=== PATIENT | male | born 1960 | race Caucasian/White ===

== ENCOUNTER 2017-06-05 11:17 | Day surgery (SDC) | payer MEDICARE, MEDICAID ==
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
[~2017-06-05 11:17] MED LIST: Buffered Lidocaine 0.9% SYRIN* 5 ML/SYR SYRINGE INTRADERM ONE; Buffered Lidocaine 0.9% SYRIN* 5 ML/SYR SYRINGE ONE; Famotidine IV* 10 MG/ML 2 ML (20 mg) IV ONE; Famotidine IV* 10 MG/ML 2 ML (20 mg) ONE; Metoclopramide TAB* 10 MG ONE; Metoclopramide TAB* 10 MG PO ONE; ceFAZolin 2 GM PREMIX (*) 2 GM/50 ML BAG IVPB ONE
[2017-06-05] MEDS ORDERED: Lidocaine 2% PF * 5 ML VIAL ONE ×2 (12:51→12:52)
[2017-06-05] MEDS ORDERED: Dexamethasone IV* 4 MG/ML 1 ML (4 MG) ONE (12:51)
[2017-06-05] MEDS ORDERED: Propofol* 10 MG/ML 20 ML BTL IV PUSH ONE (12:51)
[2017-06-05] MEDS ORDERED: Ketorolac INJ* 30 MG/ML 1 ML VIAL ONE (12:51)
[2017-06-05] MEDS ORDERED: Midazolam* 1 MG/ML 10 ML VIAL (10 MG) ONE (12:51)
[2017-06-05] MEDS ORDERED: fentaNYL* 50 MCG/ML 2 ML VIAL (100 MCG VIAL) ONE (12:51)
[2017-06-05] MEDS ORDERED: Ondansetron INJ* 2 MG/ML VIAL ONE (12:51)
[2017-06-05] MEDS ORDERED: Cisatracurium* 2 MG/ML MDV 5 ML ONE (12:51)
[2017-06-05] MEDS ORDERED: KETAMINE HCL* 50 MG/ML 10 ML VIAL ONE (12:51)
[2017-06-05] MEDS ORDERED: Bupivacaine 0.25% SDV* 30 ML ONE (13:34)
[2017-06-05] MEDS ORDERED: ROPIVACAINE 5 MG/ML 30 ML BTL (0.5%) ONE (13:42)
[2017-06-05] MEDS ORDERED: VASOPRESSIN 20 UNITS/ML 1 ML VIAL ONE (15:52)
[2017-06-05] MEDS ORDERED: Phenylephrine IV* 40 MCG/ML 10 ML SYRINGE ONE (15:52)
[2017-06-05] MEDS ORDERED: EPHEDrine (Pressors)* 50 MG/ML VIAL ONE (15:52)
[2017-06-05] MEDS ORDERED: fentaNYL* 50 MCG/ML 2 ML VIAL (100 MCG VIAL) IV PRN (16:14)
[2017-06-05] MEDS ORDERED: Ondansetron INJ* 2 MG/ML VIAL IV PRN (16:14)
[2017-06-05] MEDS ORDERED: oxyCODONE/Acetamin 5/325 MG* TAB PO PRN (16:14)
[2017-06-05 18:42] VITALS: BP 118/69
--- NOTE | 2017-06-06 10:47 | OP ---
CC: PCP; Dr. Ferrer * DATE OF OPERATION: 06/05/17 - [facility] DATE OF : 62 SURGEON: Fabio Pena MD FINANCIAL REPRESENTATIVE: ALAYNA Holden ANESTHESIOLOGIST: Dr. Yoo. ANESTHESIA: General interscalene block. PREOPERATIVE DIAGNOSES: 1. Right shoulder osteoarthritis. 2. Complete tear of the rotator cuff and instability. POST-OP DIAGNOSES: Right shoulder moderate osteoarthritis of the glenoid, massive tear of the supraspinatus, anterior half of the infraspinatus, bicipital tendinitis and tendinosis. OPERATIVE PROCEDURE: Right shoulder arthroscopy with: 1. Extensive glenohumeral debridement including chondroplasty. 2. Removal of loose body x1. 3. Arthroscopic biceps tenodesis. 4. Subacromial decompression. 5. Rotator cuff repair in double row fashion. INDICATIONS: Markie Mc is a 57-year-old male who has had shoulder and knee injuries previously. He said he has had several dislocations of the shoulder. He states that he has also had bilateral knee pain. We were working on left and right shoulder, which demonstrated some osteoarthritis with a large tear of the rotator cuff, specifically supraspinatus, in part the infraspinatus. He had failed conservative management. We talked about replacement and he is too young for replacement for this type of surgery. Risks and benefits of surgery versus nonoperative treatment were discussed in length and included but are not limited to bleeding, infection, damage to nerves, vessels, surrounding structures, wound nonhealing, persistent pain, need for further surgery, scarring, stiffness incomplete relief symptoms, risk of anesthesia. He has elected to proceed. COMPLICATIONS: None. ESTIMATED BLOOD LOSS: Minimal. IMPLANTS USE: One 2.8 mm Q-FIX, one MULTIFIX, two 4.75 HEALICOILS. DESCRIPTION OF PROCEDURE: The patient was greeted in the preoperative area by the attending surgeon. Correct extremity was marked and consent was confirmed. The patient underwent interscalene nerve block by the anesthesiologist in the preoperative area. He was then brought back to the operating suite where he was placed on the supine position on the operating room table and then underwent general anesthesia and endotracheal intubation, after which he was placed in the left lateral decubitus position with an axillary roll and all bony prominences padded. He was secured with the pegboard. His right arm was draped unsterile with 10 pounds of traction. The right shoulder was prepped and draped in the usual sterile fashion beginning with chlorhexidine soap, scrub and alcohol wipe and final prep of ChloraPrep. After appropriate surgical pause indicating side, site, procedure, administration of antibiotics, the posterolateral portal was made sharply with 11 blade. Scope was introduced to the joint. Joint was examined. There were grade 2 and 3 changes of the glenohumeral joint with unstable flaps. The anterior posterior and superior labrum were torn. Biceps had evidence of tearing at the insertion as well as in the body of the tendon. The supraspinatus had a full thickness tear extending into the anterior portion of the infraspinatus. The subscap was intact. The inferior recess was intact, but had abundant synovitis. The anterior portal was made in an outside-in- fashion with the shaver to debride back the chondral flaps of the humerus and the glenoid. The biceps was then tagged with an 0-PDS suture and tenotomized for later tenodesis. Once the debridement was complete, attention was directed to the subacromial space. The scope was positioned in the subacromial space, there was abundant bursa that was present that was thick and formed a layer over the rotator cuff. This was debrided back using the shaver and the electrocautery device. This demonstrated the large U-shaped tear with supra and into the infraspinatus tendon. The undersurface of the acromion was identified and skeletonized using electrocautery device. This was having a regular anterolateral spur. The 4.0 oval iqra was then used to do an acromioplasty. All excess bone and debris was removed carefully filled back. Attention was then directed to the biceps. The bicipital grove was identified and the biceps exposed with traction on the previously placed stitch. A Q-FIX anchor was placed through separate stab incision with excellent purchase. The sutures were then passed through the tendon in a looped manner and then both tied down arthroscopically, this helped to secure the biceps. The excess stump was debrided back. Attention was then directed to the supraspinatus and infraspinatus tendon. The electrocautery device was used to skeletonize the greater tuberosity. The rasp was used to rasp and the 4.0 oval iqra were then used to gently decorticate the greater tuberosity. The excess bone and debris was removed. At this point, two 4.75 HEALICOIL anchors were placed in the medial row and anteriorly and posteriorly. The awl was then used to do a small microfracture to allow fixation and healing to the greater tuberosity. The sutures were then passed through tendons in a horizontal mattress configuration. Once they were passed, they were then tied down using arthroscopic knot tying technique. All the sutures were tied down. The sutures were then passed through MULTIFIX anchor and then placed in lateral row for double-row fixation. Final images were obtained. The shoulder was taken through gentle range of motion and found to have appropriate repair as well as compression of the cuff to the foot print. Final images were obtained. The wounds were copiously irrigated with sterile saline. The wounds were closed with 3-0 nylon in interrupted fashion. Sterile dressings were placed as well as Cryo/Cuff and UltraSling. He was awoken from anesthesia and transferred to the PACU in stable condition. POSTOPERATIVE PLAN: He will be nonweightbearing. He will be in a sling for 6 weeks. He will be discharged on pain medications at the advice of Dr. Ferrer, who is his pain management physician. We went by his guidelines. DVT prophylaxis was considered, but deferred due to no previous personal or family history. I will see the patient back in 10 to 14 days. [id number]/[facility] #: [id number] CAROL
== END 2017-06-05 18:44 | disposition home or self-care (01) ==
LOC: OR 11:17
PROVIDERS: ATTEND Orthopaedic Surgery
DX: M75.121 Complete rotator cuff tear or rupture of right shoulder, not specified as traumatic (principal); M25.311 Other instability, right shoulder; M19.011 Primary osteoarthritis, right shoulder; J45.909 Unspecified asthma, uncomplicated; Z87.891 Personal history of nicotine dependence; I10 Essential (primary) hypertension; F32.9 Major depressive disorder, single episode, unspecified; M19.90 Unspecified osteoarthritis, unspecified site
CPT/HCPCS: A9270-GY; C1713; C1776; J0690; J1100; J1885; J2250; J2405; J2704; J2795; J3010

== ENCOUNTER 2017-10-14 12:47 | Emergency (ER) | payer MEDICARE, MEDICAID ==
--- OUTSIDE RECORDS SUMMARY | 2017-10-14 13:29 | XMS REPORT ---
:1960 External Reference #:[id number] Author Organization [facility] Address [address] [address] Phone [phone] Care Team Providers Name Role Phone Lucas Arenas MD Care Team Information Search Planner Unavailable Lucas Arenas MD Primary Care Physician Unavailable Payers Type Date Identification Numbers Payment Provider Subscriber Medicare Primary Effective: Policy Number: Medicare Christoph Mc 2014 [id number] PayID: [id number] [address] [place] [address] Commercial Expires: 2015 Policy Number: [employer] Christoph Ventura [id number] Medicaid Alexandro PayID: [id number] [address] [address] [place] [address] Medigap Part B Policy Number: [id number] Medicaid Christoph Mc PayID: [id number] [address] [place] [address] Problems Date Description Provider Status Onset: 04/30/2017 Localized, primary osteoarthritis Fabio Pena MD Active of the shoulder region Onset: 04/30/2017 Strain of musc/tend the rotator Fabio Pena MD Active cuff of right shoulder, subs Onset: 05/16/2017 Localized, primary osteoarthritis Fabio Pena MD Active Onset: 06/19/2017 Body mass index 30+ - obesity 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, RN, 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 Insomnia 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 RN, 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 Sleep apnea 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, RN, 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: 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/2017 Degeneration of lumbosacral Emanuel Shepherd MD Active intervertebral disc Onset: 09/11/2017 Low back pain Emanuel Shepherd MD Active Onset: 09/11/2017 Lumbosacral 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 Onset: 08/29/2017 Lumbar radiculopathy Fabio Pena MD Active Onset: 08/29/2017 Localized, primary osteoarthritis Fabio Pena MD Active of the pelvic region and thigh Family History Date Family Member(s) Problem(s) Comments General Heart Disease General Diabetes General Cancer Father Diabetes Father due to Unknown Causes () Mother due to Cancer () Siblings 2 older brother, younger sister both healthy Social History Type Date Description Comments Marital Status Lives With Alone 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 Cigarette Use Former Cigarette Smoker 1 for many years quit more Pack Daily than 20 years ago (report from 2018) ETOH Use Occasionally consumes alcohol Recreational Drug Use Denies Drug Use Smoking Patient is a former smoker Daily Caffeine Occasional coffee Daily Caffeine Consumes on average 1 cup of hot tea per day Exercise Type/Frequency Exercises sporadically Recovering from shoulder surgery 06/19/17 Allergies, Adverse Reactions, Alerts Date Description Reaction Status Severity Comments 03/24/2015 NKDA active Medications Medication Date Status Form Strength Qnty SIG Indications Ordering Provider Albuterol Sulfate 03/24 Active Nebulizer 75ml 1 vial via nebulizer Chao, 4 times M.D. daily as needed Amlodipine Active Tablets 5mg 1 by mouth Unknown Besylate every day Celecoxib Active Capsules 200mg once daily Unknown Cyclobenzaprine Active Tablets 10mg one by Unknown HCL /0000 mouth three times a day as needed spasm Cymbalta Active Caps DR 30mg 1 by mouth Unknown /0000 Part every day Dulera Active Aerosol 100-5mcg/ 2 puff Unknown / Act twice a day Morphine Sulfate Active Caps ER 30mg 1 by mouth Unknown ER /0000 24HR every 6 hours Nuvigil Active Tablets 250mg 1 by mouth Unknown / every day Oxycodone-Acetami Active Tablets 10-325mg take 1 Unknown nophen /0000 tablet by mouth every 4 to 6 hours as needed for pain Proair HFA Active Aerosol 108(90Bas 2 puffs by Unknown /0000 e) mouth mcg/Act every 4 hours as needed Lisinopril Active Tablets 10mg 1 by mouth Unknown /0000 every day Tamsulosin HCL Active Capsules 0.4mg 1 by mouth Unknown /0000 every day Oxycodone HCL 06/04 Hx Tablets 10mg 40tab take 1 tab ne s every 8 MD Jean - hours as 06/19 pain Oxycodone HCL 06/03 Hx Tablets 5mg 56tab 1-2 tabs ne s by mouth MD Jean - every 4-6 06/03 hours as needed Keflex 06/03 Hx Capsules 500mg 12cap take 1 tab s by mouth MD Jean - four times 06/19 a day x days. Do not take before surgery [facility] 03/22 Hx Tablets 5-325mg 30tab 1-2 by S63.635A s mouth q4-6 Chao, - hour as M.D. 06/02 needed pain [facility] 03/24 Hx Tablets 5-325mg 30tab 1-2 by [id number] Tamica /2015 s mouth q4-6 Chao, - hour as M.D. 02/16 needed pain Mobic 11/07 Hx Tablets 15mg 30tab Take One s Tablet By Rufina, - Mouth Once M.D. 06/24 Daily Food as Needed Flexeril Hx Tablets 10mg 1 by mouth Unknown /0000 three - times a 11/18 day needed Duloxetine HCL Hx Caps DR 30mg 1 by mouth Unknown /0000 Part every day - 11/15 Medications Administered in Office Medication Date Status Form Strength Qnty SIG Indications Ordering Provider Triamcinolone 08/13/ Administered Injection Zaneb (Kenalog) 2017 MD Jean Triamcinolone 08/13/ Administered Injection Zaneb (Kenalog) 2017 MD Jean Triamcinolone 05/16/ Administered Injection Maryjo (Kenalog) 2016 ERIKA Dodd Triamcinolone 05/16/ Administered Injection Maryjo (Kenalog) 2016 ERIKA Dodd Triamcinolone 04/30/ Administered Injection Zaneb (Kenalog) 2016 MD Jean Triamcinolone 04/30/ Administered Injection Zaneb (Kenalog) 2016 MD Jean Depomedrol 40MG 03/21/ Administered Injection Tamica 2016 Clare Chao Depomedrol 40MG 03/21/ Administered Injection Tamica 2016 Clare Chao Depomedrol 40MG 11/28/ Administered Injection Tamica 2016 Clare Chao Depomedrol 40MG 11/28/ Administered Injection Tamica 2016 Clare Chao Depomedrol 40MG 07/30/ Administered Injection Tamica 2016 Clare Chao Depomedrol 40MG 07/30/ Administered Injection Tamica 2016 Clare Chao Depomedrol 40MG 04/12/ Administered Injection Norma 2015 SAUNDRA Ramos Depomedrol 40MG 12/14/ Administered Injection Tamica 2015 Clare Chao Depomedrol 40MG 08/21/ Administered Injection Norma 2015 SAUNDRA Ramos Depomedrol 40MG 06/30/ Administered Injection Tamica 2015 Clare Chao Hyalagan Or 02/26/ Administered Injection Mitul Supartz, For 2012 Rufina, Intra-Articular Clare Inject Per Dose Hyalagan Or 02/20/ Administered Injection Congregation Supartz, For 2012 H. Intra-Articular Mckeithen, Inject Per Dose R.P.A.-C Synvisc Or 02/13/ Administered Injection Congregation Synvisc-One 2012 H. Injection 1 MG Mckeithen, R.P.A.-C Hyalagan Or 02/13/ Administered Injection Congregation Supartz, For 2012 H. Intra-Articular Mckeithen, Inject Per Dose R.P.A.-C Hyalagan Or 02/05/ Administered Injection Congregation Supartz, For 2012 H. Intra-Articular Mckeithen, Inject Per Dose R.P.A.-C Hyalagan Or 01/29/ Administered Injection Congregation Supartz, For 2012 H. Intra-Articular Mckeithen, Inject Per Dose R.P.A.-C Hyalagan Or 01/22/ Administered Injection Congregation Supartz, For 2012 H. Intra-Articular Mckeithen, Inject Per Dose R.P.A.-C Hyalagan Or 01/15/ Administered Injection Mitul Carreon, For 2012 Rufina, Intra-Articular M.D. Inject Per Dose Hyalagan Or 01/08/ Administered Injection Mitul Carreon, For 2012 Rufina, Intra-Articular M.D. Inject Per Dose Hyalagan Or 01/01/ Administered Injection Mitul Carreon, For 2012 Rufina, Intra-Articular M.D. Inject Per Dose Vital Signs Date Vital Result Comment 10/09/2017 Height 71 inches 5'11" Weight 245.00 lb BP Systolic Sitting 140 mmHg BP Diastolic Sitting 90 mmHg Pain Level 8 BMI (Body Mass Index) 34.2 kg/m2 10/08/2017 Height 71 inches 5'11" Heart Rate 73 /min BP Systolic 126 mmHg BP Diastolic 78 mmHg Respiratory Rate 16 /min Body Temperature 98.1 F Pain Level 7 09/11/2017 Height 71 inches 5'11" Weight 245.00 lb Heart Rate 76 /min BP Systolic Sitting 140 mmHg BP Diastolic Sitting 92 mmHg Pain Level 7 BMI (Body Mass Index) 34.2 kg/m2 08/29/2017 Height 71 inches 5'11" Weight 245.00 lb per pt Heart Rate 66 /min reg BP Systolic Sitting 124 mmHg Lue BP Diastolic Sitting 84 mmHg Lue Respiratory Rate 16 /min Pain Level 7 left hip BMI (Body Mass Index) 34.2 kg/m2 08/13/2017 Height 71 inches 5'11" Heart Rate 80 /min BP Systolic 138 mmHg BP Diastolic 88 mmHg Respiratory Rate 16 /min Body Temperature 97.6 F Pain Level 7 07/30/2017 Height 71 inches 5'11" Weight 253.00 lb BP Systolic 130 mmHg BP Diastolic 80 mmHg Respiratory Rate 18 /min Body Temperature 98.2 F Pain Level 4 BMI (Body Mass Index) 35.3 kg/m2 06/19/2017 Height 71 inches 5'11" Weight 253.12 lb Heart Rate 98 /min BP Systolic Sitting 126 mmHg Rue large cuff BP Diastolic Sitting 74 mmHg Rue large cuff Respiratory Rate 16 /min O2 % BldC Oximetry 97 % On Ra BMI (Body Mass Index) 35.3 kg/m2 05/16/2017 Height 71 inches 5'11" Weight 270.00 lb BP Systolic 114 mmHg BP Diastolic 74 mmHg Respiratory Rate 20 /min Pain Level 3 BMI (Body Mass Index) 37.7 kg/m2 04/30/2017 Height 71 inches 5'11" Weight 270.00 lb Heart Rate 74 /min BP Systolic 127 mmHg BP Diastolic 74 mmHg Body Temperature 96.0 F BMI (Body Mass Index) 37.7 kg/m2 03/21/2017 Height 70.25 inches 5'10.25" Weight 270.00 lb BP Systolic 124 mmHg BP Diastolic 78 mmHg Respiratory Rate 20 /min Pain Level 8 BMI (Body Mass Index) 38.5 kg/m2 11/28/2016 Height 70.25 inches 5'10.25" Weight 270.00 lb BP Systolic 150 mmHg BP Diastolic 120 mmHg Body Temperature 96.7 F BMI (Body Mass Index) 38.5 kg/m2 07/30/2016 Height 70.25 inches 5'10.25" Weight 270.00 lb Heart Rate 78 /min BP Systolic 151 mmHg BP Diastolic 97 mmHg Respiratory Rate 14 /min BMI (Body Mass Index) 38.5 kg/m2 04/12/2016 Height 70.25 inches 5'10.25" Weight 270.00 lb Pain Level 6 BMI (Body Mass Index) 38.5 kg/m2 03/08/2016 Height 70.25 inches 5'10.25" Weight 270.00 lb BP Systolic 140 mmHg BP Diastolic 80 mmHg Pain Level 7 BMI (Body Mass Index) 38.5 kg/m2 12/15/2015 Height 70.25 inches 5'10.25" Weight 285.00 lb Pain Level 7 BMI (Body Mass Index) 40.6 kg/m2 08/22/2015 Height 70.25 inches 5'10.25" Weight 285.00 lb Pain Level 0 BMI (Body Mass Index) 40.6 kg/m2 07/25/2015 Height 70.25 inches 5'10.25" Weight 285.00 lb Body Temperature 97.8 F Pain Level 0 BMI (Body Mass Index) 40.6 kg/m2 06/30/2015 Height 70.25 inches 5'10.25" Weight 285.00 lb Pain Level 7 BMI (Body Mass Index) 40.6 kg/m2 05/19/2015 Height 70.25 inches 5'10.25" Weight 285.00 lb Pain Level 5 BMI (Body Mass Index) 40.6 kg/m2 04/21/2015 Height 70.25 inches 5'10.25" Weight 285.00 lb Pain Level 0 in general BMI (Body Mass Index) 40.6 kg/m2 03/24/2015 Height 70.25 inches 5'10.25" Weight 285.00 lb Heart Rate 99 /min BP Systolic Sitting 138 mmHg BP Diastolic Sitting 92 mmHg Pain Level 6 BMI (Body Mass Index) 40.6 kg/m2 Results Test Date Test Result H/L Range Note Laboratory test 07/15/2015 Surgical Pathology SEE RESULT BELOW 1 finding 1 SEE RESULT BELOW Name: CHRISTOPH MC : [address]: Tamica Chao MD Acct: [id number] Unit: [id number] AGE: 55 Location: [facility] Re07/15/15 SEX: M Status: REG [facility] [place] SPEC: [id number] SMITHA: 07/15/15-1210 [facility] DR: Tamica Chao MD REQ: [id number] RECD: 07/15/15 STATUS: SOUT _ ORDERED: Decal, LEVEL III FINAL DIAGNOSIS Bone, left ring finger, PIP joint arthroplasty: -- Severe degenerative osteoarthritic changes with marked reactive bony remodeling and reactive marrow changes. PRE-OPERATIVE DIAGNOSIS Left proximal interphalangeal joint arthritis GROSS DESCRIPTION The specimen is received in formalin labeled, PIP Joint Left Ring Finger, and consists of a 1.9 x 1.0 x 0.5 cm aggregate of hansen white irregular bone fragments. Retail Associate sections, one cassette following decalcification. MICROSCOPIC DESCRIPTION Signed (signature on file) Carlito Ayala MD 1608 END OF REPORT * ML=Testing performed at Main Lab DEPARTMENT OF PATHOLOGY, [address] [place] [address] Carlito Ayala M.D. Director [facility] # [id number] Procedures Date CPT Code Description Status 08/13/2017 Inject/Drain Joint/Bursa Major Completed 07/10/2017 18942 Polysomnography Sleep Staging 4+ Parameters W/Cpap Completed 06/27/2017 39002 Polysomnography Sleep Staging 4+ Parameters Completed 06/05/2017 76492 Arthroscopy Biceps Tenodesis Completed 06/05/2017 19004 Arthroscopy Biceps Tenodesis Completed 06/05/2017 48781 Arthroscopy Shoulder,W/Rotator Cuff Repair Completed 06/05/2017 23732 Arthroscopy Shoulder,W/Rotator Cuff Repair Completed 06/05/2017 38966 Arthroscopy,Shoulder Decompression Of Subacromial Space Completed W/Acromio 06/05/2017 05839 Arthroscopy,Shoulder Decompression Of Subacromial Space Completed W/Acromio 05/16/201727075 Inject/Drain Joint/Bursa Major Completed 04/30/2017 Inject/Drain Joint/Bursa Major Completed 03/21/2017 Inject/Drain Joint/Bursa Small Completed 11/28/2016 Inject/Drain Joint/Bursa Small Completed 11/28/2016 72997 Inject Tendon Sheath Or Ligament Aponeurosis Eg Plantar Completed Fascia 07/30/2016 Inject/Drain Joint/Bursa Small Completed 04/12/2016 23896 Inject Tendon Sheath Or Ligament Aponeurosis Eg Plantar Completed Fascia 03/23/2016 53354 Trigger Finger Release Incision / Tendon Sheath Completed Incision 03/23/2016 12914 Trigger Finger Release Incision / Tendon Sheath Completed Incision 12/15/201528111 Inject Tendon Sheath Or Ligament Aponeurosis Eg Plantar Completed Fascia 08/22/201515276 Inject Tendon Sheath Or Ligament Aponeurosis Eg Plantar Completed Fascia 08/22/201586663 Inject Tendon Sheath Or Ligament Aponeurosis Eg Plantar Completed Fascia 07/15/2015 72681 Arthroplasty Interphalangeal Joint W/Prosthetic Implant Completed 07/15/2015 04434 Arthroplasty Interphalangeal Joint W/Prosthetic Implant Completed 06/30/2015 46543 Inject Tendon Sheath Or Ligament Aponeurosis Eg Plantar Completed Fascia 04/08/2015 46559 Repair Of Collateral Ligament Metacarpophalangeal Or Completed Interphl JT 04/08/2015 84802 Repair Of Collateral Ligament Metacarpophalangeal Or Completed Interphl JT 04/08/2015 82908 Repair Of Collateral Ligament Metacarpophalangeal Or Completed Interphl JT 12/24/2013 47608 EKG, Interpretation Only Completed 02/26/2013 Inject/Drain Joint/Bursa Major Completed 02/20/2013 Inject/Drain Joint/Bursa Major Completed 02/13/2013 Inject/Drain Joint/Bursa Major Completed 02/05/2013 Inject/Drain Joint/Bursa Major Completed 01/29/2013 Inject/Drain Joint/Bursa Major Completed 01/22/201374390 Inject/Drain Joint/Bursa Major Completed 01/15/2013 Inject/Drain Joint/Bursa Major Completed 01/08/2013 Inject/Drain Joint/Bursa Major Completed 01/01/2013 Inject/Drain Joint/Bursa Major Completed 11/07/2012 24715 Xray Knee 3 Views Completed 11/07/2012 35408 Rad Exam; Knee, Ap&L Completed Encounters Type Date Location Provider CPT E/M Dx Office Visit 10/09/2017 Neurosurgery Services Emanuel 35556 M47.26 10:00a Of Thelma Shepherd MD M54.5 M51.37 Office Visit 09/11/2017 10:30a Neurosurgery Services Vassilios 82158 M47.26 Of Thelma Shepherd MD M54.5 M51.37 Office Visit 08/29/2017 11:00a [place] [address] M16.12 Ir[place]a M54.16 Office Visit 06/19/2017 2:30p Pulmonology And Sleep Malinda Bradley, 41523 G47.00 Services Of Thelma HERNANDES RN, [facility] G47.10 G47.50 E66.9 Z68.35 Office Visit 05/16/2017 2:15p [facility] [address] M19.011 C.Fabricio M17.0 M75.121 M75.21 Office Visit 04/30/2017 1:30p [place] [address] M19.011 C.Fabricio S46.011D M17.0 Office Visit 04/12/2016 10:00a Orthopedic Services Norma Ramos 75498 M65.342 Of Irlanda MULLEN-C Office Visit 03/08/2016 10:00a Orthopedic Services Tamica Chao 95617 M65.332 Of Irlanda Sparks Office Visit 12/15/2015 2:00p Orthopedic Services Tamica Chao 39295 M65.332 Of Irlanda Sparks M19.042 Office Visit 08/22/2015 10:20a Orthopedic Services Norma Ramos 67272 M65.332 Of Irlanda MULLEN-C S63.635D Office Visit 06/30/2015 9:20a Orthopedic Services Tamica Chao 33580 S63.635D Of Irlanda Sparks M65.332 M19.042 Office Visit 03/24/2015 10:30a Orthopedic Services Tamica Chao 43177 S63.635A Of Irlanda Sparks M19.042 Office Visit 01/06/2013 1:00p Neurosurgery Services Jacob Loyola, 28025 721.3 Of Thelma Sparks Office Visit 11/07/2012 10:00a Orthopedic Services Of Mitul Almaraz 48206 715.16 Irlanda Sparks Plan of Care Future Appointment(s):10/16/2017 10:45 am - Diane Ann MD at [facility]10/09/2017 - Emanuel Shepherd, MDM47.26 Other spondylosis with radiculopathy, lumbar ejyfpdM16.5 Low back painM51.37 Other intervertebral disc degeneration, lumbosacral regionFollow up:Rv prn. Patient may be a candidate for L4-5 L5-S1 TLIF or ALIF with pedicle screws.
--- OUTSIDE RECORDS SUMMARY | 2017-10-14 13:29 | XMS REPORT ---
:1960 External Reference #:[id number] Author Organization [employer] Address [address] [address] Phone [phone] Care Team Providers Name Role Phone Lucas Arenas MD Care Team Information Lab Associate Unavailable Lucas Arenas MD Primary Care Physician Unavailable Payers Type Date Identification Numbers Payment Provider Subscriber Medicare Primary Effective: Policy Number: Medicare Markie Mc 2014 [id number] PayID: [id number] [address] [place] [address] Commercial Expires: 2015 Policy Number: [employer] Markie Ventura [id number] Medicaid Alexandro PayID: [id number] [address] [address] [place] [address] Medigap Part B Policy Number: [id number] Medicaid Markie Mc PayID: [id number] [address] [place] [address] Problems Date Description Provider Status Onset: 04/30/2017 Localized, primary osteoarthritis Fabio Pena MD Active of the shoulder region Onset: 04/30/2017 Strain of musc/tend the rotator Fabio Pena MD Active cuff of right shoulder, subs Onset: 05/16/2017 Localized, primary osteoarthritis Fabio Pena MD Active Onset: 06/19/2017 Body mass index 30+ - obesity 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, RN, Active LOIN TRIMMER-BC Onset: 06/19/2017 Insomnia 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, RN, Active LOIN TRIMMER-BC Onset: 06/19/2017 Sleep apnea 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 RN, Active LOIN TRIMMER-BC Onset: 09/11/2017 Low back pain Emanuel Shepherd [...] Active Nebulizer 75ml 1 vial via nebulizer Zhanna 4 times M.D. daily as needed Amlodipine Active Tablets 5mg 1 by mouth Unknown Besylate every day Celecoxib Active Capsules 200mg once daily Unknown / Cyclobenzaprine Active Tablets 10mg one by Unknown HCL /0000 mouth three times a day as needed spasm Cymbalta Active Caps DR 30mg 1 by mouth Unknown /0000 Part every day Dulera Active Aerosol 100-5mcg/ 2 puff Unknown /0000 Act twice a day Morphine Sulfate Active Caps ER 30mg 1 by mouth Unknown ER /0000 24HR every 6 hours Nuvigil Active Tablets 250mg 1 by mouth Unknown /0000 every day Oxycodone-Acetami Active Tablets 10-325mg take 1 Unknown nophen /0000 tablet by mouth every 4 to 6 hours as needed for pain Proair HFA Active Aerosol 108(90Bas 2 puffs by Unknown /0000 e) mouth mcg/Act every 4 hours as needed Lisinopril 00/00 Active Tablets 10mg 1 by mouth Unknown /0000 every day Tamsulosin HCL Active Capsules 0.4mg 1 by mouth Unknown /0000 every day Oxycodone HCL 06/04 Hx Tablets 10mg 40tab take 1 tab Zaneb s every 8 MD Jean - hours as 06/19 pain Oxycodone HCL 06/03 Hx Tablets 5mg 56tab 1-2 tabs Zaneb s by mouth MD Jean - every 4-6 06/03 hours as needed Keflex 06/03 Hx Capsules 500mg 12cap take 1 tab Zaneb s by mouth MD Jean - four times 06/19 a day x days. Do not take before surgery Johnson 03/22 Hx Tablets 5-325mg 30tab 1-2 by S63.635A s mouth q4-6 Chao, - hour as M.D. 06/02 pain Johnson 03/24 Hx Tablets 5-325mg 30tab 1-2 by S63.635A Tamica /2015 s mouth q4-6 Chao, - hour as M.D. 02/16 needed pain Mobic 11/07 Hx Tablets 15mg 30tab Take One s Tablet By Rufina, - Mouth Once M.D. 06/24 Daily With Food as Needed Flexeril Hx Tablets 10mg [...] Chao Hyalagan Or 02/26/ Administered Injection Mitul Carreon, For 2012 Rufina, Intra-Articular Arsalan.D. Inject Per Dose Hyalagan Or 02/20/ Administered Injection Catholic Supartz, For 2012 H. Intra-Articular Mckeithen, Inject Per Dose R.P.A.-C Synvisc Or 02/13/ Administered Injection Catholic Synvisc-One 2012 H. Injection 1 MG Mckeithen, R.P.A.-C Hyalagan Or 02/13/ Administered Injection Catholic Supartz, For 2012 H. Intra-Articular Mckeithen, Inject Per Dose R.P.A.-C Hyalagan Or 02/05/ Administered Injection Catholic Supartz, For 2012 H. Intra-Articular Mckeithen, Inject Per Dose R.P.A.-C Hyalagan Or 01/29/ Administered Injection Catholic Supartz, For 2012 H. Intra-Articular Mckeithen, Inject Per Dose R.P.A.-C Hyalagan Or 01/22/ Administered Injection Catholic Supartz, For 2012 H. Intra-Articular Mckeithen, Inject Per Dose R.P.A.-C Hyalagan Or 01/15/ Administered Injection Mitul Carreon, For 2012 Rufina, Intra-Articular M.D. Inject Per Dose Hyalagan Or 01/08/ Administered Injection Mitul Carreon, For 2012 Rufina, Intra-Articular M.D. Inject Per Dose Hyalagan Or 01/01/ Administered Injection Mitul Carreon, For 2012 Rufina, Intra-Articular M.D. Inject Per Dose Vital Signs Date Vital Result Comment 10/08/2017 Height 71 inches 5'11" Heart Rate [...] 1 finding 1 SEE RESULT BELOW Name: MARKIE MC : [address]: Tamica Chao MD Acct: [id number] Unit: [id number] AGE: 55 Location: [facility] Re07/15/15 SEX: M Status: [facility] SPEC: [id number] SMITHA: 07/15/15-[address]: Tamica Chao MD REQ: [id number] RECD: 07/15/15716 STATUS: SOUT _ ORDERED: Decal, LEVEL III [...] aggregate of hansen white irregular bone fragments. Feather Separator sections, one cassette following decalcification. MICROSCOPIC DESCRIPTION Signed (signature on file) Carlito Ayala MD 1608 END OF REPORT * ML=Testing performed at Main Lab DEPARTMENT OF PATHOLOGY, [address] [place] [address] Carlito Ayala M.D. Director [facility] # [id number] Procedures Date CPT Code Description Status 08/13/201781113 Inject/Drain Joint/Bursa Major Completed 07/10/2017 58255 Polysomnography Sleep Staging 4+ Parameters W/Cpap Completed 06/27/2017 64833 Polysomnography Sleep Staging 4+ Parameters Completed 06/05/2017 66503 Arthroscopy Biceps Tenodesis Completed 06/05/2017 84511 Arthroscopy Biceps Tenodesis Completed 06/05/2017 30884 Arthroscopy Shoulder,W/Rotator Cuff Repair Completed 06/05/2017 19573 Arthroscopy Shoulder,W/Rotator Cuff Repair Completed 06/05/2017 19923 Arthroscopy,Shoulder Decompression Of Subacromial Space Completed W/Acromio 06/05/2017 80975 Arthroscopy,Shoulder Decompression Of Subacromial Space Completed W/Acromio 05/16/2017 45347 Inject/Drain Joint/Bursa Major Completed 04/30/201776713 Inject/Drain Joint/Bursa Major Completed 03/21/2017 Inject/Drain Joint/Bursa Small Completed 11/28/2016 Inject/Drain Joint/Bursa Small Completed 11/28/2016 11034 Inject Tendon Sheath Or Ligament Aponeurosis Eg Plantar Completed Fascia 07/30/2016 Inject/Drain Joint/Bursa Small Completed 04/12/2016 21642 Inject Tendon Sheath Or Ligament Aponeurosis Eg Plantar Completed Fascia 03/23/2016 55520 Trigger Finger Release Incision / Tendon Sheath Completed Incision 03/23/201651392 Trigger Finger Release Incision / Tendon Sheath Completed Incision 12/15/201565543 Inject Tendon Sheath Or Ligament Aponeurosis Eg Plantar Completed Fascia 08/22/201582150 Inject Tendon Sheath Or Ligament Aponeurosis Eg Plantar Completed Fascia 08/22/201532704 Inject Tendon Sheath Or Ligament Aponeurosis Eg Plantar Completed Fascia 07/15/2015 03152 Arthroplasty Interphalangeal Joint W/Prosthetic Implant Completed 07/15/2015 58584 Arthroplasty Interphalangeal Joint W/Prosthetic Implant Completed 06/30/2015 00542 Inject Tendon Sheath Or Ligament Aponeurosis Eg Plantar Completed Fascia 04/08/2015 12510 Repair Of Collateral Ligament Metacarpophalangeal Or Completed Interphl JT 04/08/2015 45124 Repair Of Collateral Ligament Metacarpophalangeal Or Completed Interphl JT 04/08/2015 57695 Repair Of Collateral Ligament Metacarpophalangeal Or Completed Interphl JT 12/24/2013 46623 EKG, Interpretation Only Completed 02/26/2013 Inject/Drain Joint/Bursa Major Completed 02/20/2013 Inject/Drain Joint/Bursa Major Completed 02/13/2013 Inject/Drain Joint/Bursa Major Completed 02/05/2013 Inject/Drain Joint/Bursa Major Completed 01/29/201380778 Inject/Drain Joint/Bursa Major Completed 01/22/201327403 Inject/Drain Joint/Bursa Major Completed 01/15/201375029 Inject/Drain Joint/Bursa Major Completed 01/08/2013 Inject/Drain Joint/Bursa Major Completed 01/01/201371535 Inject/Drain Joint/Bursa Major Completed 11/07/2012 29935 Xray Knee 3 Views Completed 11/07/2012 80273 Rad Exam; Knee, Ap&L Completed Encounters Type Date Location Provider CPT E/M Dx Office Visit 09/11/2017 [facility] 05838 M47.26 10:30a Of Thelma Shepherd MD M54.5 M51.37 Office Visit 08/29/2017 11:00a [place] [address] M16.12 C.M.A. M54.16 Office Visit 06/19/2017 2:30p [facility] Malinda Bradley, 02934 G47.00 Services Of Thelma HERNANDES RN, LOIN TRIMMER- G47.10 G47.50 E66.9 Z68.35 Office Visit 05/16/2017 2:15p [place] [address] M19.011 C.M.AAldo M17.0 M75.121 M75.21 Office Visit 04/30/2017 1:30p [place] [address] M19.011 C.MAllie S46.011D M17.0 Office Visit 04/12/2016 10:00a [facility]opedic Services Norma Ramos 98052 M65.342 Of Irlanda MULLEN-C Office Visit 03/08/2016 10:00a Orthopedic Services Tamica Chao 03731 M65.332 Of Irlanda Sparks Office Visit 12/15/2015 2:00p Orthopedic Services Tamica Chao 65578 M65.332 Of Irlanda Sparks M19.042 Office Visit 08/22/2015 10:20a Orthopedic Services Norma Ramos 31956 M65.332 Of Irlanda MULLEN-C S63.635D Office Visit 06/30/2015 9:20a Orthopedic Services Tamica Chao 14723 S63.635D Of Irlanda Sparks M65.332 M19.042 Office Visit 03/24/2015 10:30a Orthopedic Services Tamica Chao 03642 S63.635A Of Irlanda Sparks M19.042 Office Visit 01/06/2013 1:00p Neurosurgery Services Jacob Loyola, [address] [facility] M.Brandon Office Visit 11/07/2012 10:00a [facility]opedic Services Of Mitul Almaraz, 91121 715.16 Irlanda Sparks Plan of Care Future Appointment(s):10/16/2017 10:45 am - Diane Ann MD at [facility]10/09/2017 10:00 am - Emanuel Shepherd MD at [facility]surgery [facility]
--- NOTE | 2017-10-14 15:20 | RAD ---
Indication: Previous right tibia and fibula fracture. 4 views of the right knee are reviewed. Healing fracture proximal fibula is noted. Joint spaces well-preserved. No joint effusion is noted. IMPRESSION: No fracture of the right knee is noted. There is suggestion of a healed fracture right proximal fibula.
--- NOTE | 2017-10-14 16:52 | ED ---
Lower Extremity - HPI Summary HPI Summary: Patient is a 57-year-old male who presents emergency department for right knee pain times one day. Patient does not recall any specific injuries or falls. He states that his knee "locked up." He states this happened before and able "pop back in." Takes chronic opioids for pain which has not been helping. Is able to ambulate with pain. Patient states he cannot fully straighten his right knee. Symptoms are mild in severity. Walking and straighten his leg makes symptoms worse. Rest makes symptoms better. - History of Current Complaint Chief Complaint: EDExtremityLower Stated Complaint: RT KNEE INJURY Time Seen by Provider: 10/14/17 14:19 Hx Obtained From: Patient Pain Intensity: 4 - Allergies/Home Medications Allergies/Adverse Reactions: Allergies Allergy/AdvReac Type Severity Reaction Status Date / Time No Known Allergies Allergy Verified 10/14/17 12:54 Home Medications: Home Medications Albuterol HFA INHALER* [Ventolin HFA Inhaler*] 2 puff INH Q4H PRN 10/14/17 [ History Confirmed 10/14/17] Cyclobenzaprine TAB* [Flexeril 10 MG TAB*] 10 mg PO BID PRN 10/14/17 [History Confirmed 10/14/17] Morphine TAB Extended Rel(*) [Ms Contin(*)] 30 mg PO Q8H PRN 10/14/17 [History Confirmed 10/14/17] Tamsulosin CAP* [Flomax CAP*] 0.4 mg PO DAILY 10/14/17 [History Confirmed ] amLODIPine TAB* [Norvasc 5 mg TAB*] 5 mg PO DAILY 10/14/17 [History Confirmed ] PMH/Surg Hx/FS Hx/Imm Hx Previously Healthy: Yes Endocrine/Hematology History: Denies: Hx Diabetes Cardiovascular History: Reports: Hx Hypertension - ON MEDS, PT. STATES CONTROLLED Denies: Hx Pacemaker/ICD, Other Cardiovascular Problems/Disorders Respiratory History: Reports: Hx Asthma - HAS INHALERS Denies: Other Respiratory Problems/Disorders GI History: Denies: Other GI Disorders History: Denies: Hx Renal Disease Musculoskeletal History: Reports: Hx Arthritis - osteoarthritis knee Denies: Other Musculoskeletal History Sensory History: Reports: Hx Contacts or Glasses - glasses Denies: Hx Cataracts, Hx Hearing Aid Opthamlomology History: Reports: Hx Contacts or Glasses - glasses Denies: Hx Cataracts Neurological History: Denies: Other Neuro Impairments/Disorders Psychiatric History: Reports: Hx Anxiety, Hx Depression - ON MEDS, PT. STATES CONTROLLED Denies: Hx Panic Disorder - Cancer History Hx Chemotherapy: No - Surgical History Surgery Procedure, Year, and Place: Grafts on LEFT legs, 10" steel in RIGHT leg below knee 1985 [place]. SKIN LESION FROM FOREHEAD. 08/27,RIGHT FOOT BONE SPUR [facility]. 12/28, NASAL SURGERY. 03/31, LEFT RING FINGER,X 2 [facility] PIP JOINT REPLACED. 06/02 ROTATOR CUFF RIGHT SHOULDER Hx Anesthesia Reactions: No Infectious Disease History: No Infectious Disease History: Denies: Traveled Outside the [place] in Last 30 Days - Social History Occupation: Disabled Lives: With Family Alcohol Use: Rare Substance Use Type: Reports: Prescribed Smoking Status (MU): Former Smoker Amount Used/How Often: PACK A DAY, smoked 20 + years smoked Have You Smoked in the Last Year: No Review of Systems Positive: Other - Right knee pain All Other Systems Reviewed And Are Negative: Yes Physical Exam Triage Information Reviewed: Yes Vital Signs On Initial Exam: Initial Vitals Temp Pulse Resp BP Pulse Ox 98.4 F 65 15 159/91 98 10/14/17 12:51 10/14/17 12:51 10/14/17 12:51 10/14/17 12:51 10/14/17 12:51 Vital Signs Reviewed: Yes Appearance: Positive: Well-Appearing - Pt. lying in bed in NAD. S.O. present. Skin: Positive: Warm, Dry Head/Face: Positive: Normal Head/Face Inspection Eyes: Positive: Normal Musculoskeletal: Positive: Other - No reproducible pain on the patient of right knee. There is no overlying erythema or increased warmth. No effusion. Leg is irrationally intact. Able to flex the knee without difficulty. Moderate pain with complete extension of the knee. Patient is almost able to straighten knee completely. Diagnostics - Vital Signs Vital Signs Temp Pulse Resp BP Pulse Ox 10/14/17 12:51 98.4 F 65 15 159/91 98 - Laboratory Lab Statement: Any lab studies that have been ordered have been reviewed, and results considered in the medical decision making process. Lower Extremity Course/Dx - Course Course Of Treatment: Pt. presenting to the ER for right knee pain. He is afebrile. No signs of infectio on exam. Xray shows arthritic changes without acute change, per radiology. Case discussed with Dr. Vang who also examined pt. Suspect possible meniscal tear. He was able to get patient scheduled an appointment with orthopedics for tomorrow at 245. José Miguel wrap and crutches were placed. To ice and elevate. Anti-inflammatories for pain. Follow-up with orthopedic further evaluation. - Diagnoses Differential Diagnosis/HQI/PQRI: Positive: Arthritis, Bursitis, Contusion, Fracture (Closed), Sprain, Strain Provider Diagnoses: Knee pain Discharge - Sign-Out/Discharge Documenting (check all that apply): Discharge/Admit/Transfer - Discharge Plan Condition: Good Disposition: HOME Patient Education Materials: Knee Pain (ED) Referrals: Lucas Arenas MD [Primary Care Provider] - Tamica Chao MD [Medical Doctor] - Additional Instructions: You have an appointment at the orthopedic clinic tomorrow, 10/15/17, at 2:45pm - Billing Disposition and Condition Condition: GOOD Disposition: HOME
[2017-10-14 16:54] VITALS: BP 141/97
== END 2017-10-14 16:53 | disposition home or self-care (01) ==
LOC: ED 12:47
DX: M25.561 Pain in right knee (principal); Z87.898 Personal history of other specified conditions
CPT/HCPCS: 99282

== ENCOUNTER 2017-11-04 10:30 | Day surgery (SDC) | payer MEDICARE, MEDICAID ==
[~2017-11-04 10:30] MED LIST changes: -Buffered Lidocaine 0.9% SYRIN* 5 ML/SYR SYRINGE ONE; +Dexamethasone IV* 4 MG/ML 1 ML (4 MG) IV SLOW PU ONE; -Famotidine IV* 10 MG/ML 2 ML (20 mg) ONE; +Levalbuterol 0.63MG/3ML NEB* UNIT OF USE INH ONE; -Metoclopramide TAB* 10 MG ONE; -Metoclopramide TAB* 10 MG PO ONE; -ceFAZolin 2 GM PREMIX (*) 2 GM/50 ML BAG IVPB ONE
[2017-11-04] MEDS ORDERED: Famotidine IV* 10 MG/ML 2 ML (20 mg) ONE (10:46)
[2017-11-04] MEDS ORDERED: Dexamethasone IV* 4 MG/ML 1 ML (4 MG) ONE (10:46)
[2017-11-04] MEDS ORDERED: ceFAZolin 2 GM PREMIX (*) 2 GM/50 ML BAG IVPB ONE (10:46)
[2017-11-04] MEDS ORDERED: Levalbuterol 0.63MG/3ML NEB* UNIT OF USE INH ONE (11:21)
[2017-11-04] MEDS ORDERED: Bupivacaine 0.25% SDV* 30 ML ONE (12:20)
[2017-11-04] MEDS ORDERED: Lidocaine 1% MPF wEPI 200,000* 30 ML SDV ONE (12:21)
[2017-11-04] MEDS ORDERED: Midazolam* 1 MG/ML 5 ML VIAL (5 MG) ONE (12:33)
[2017-11-04] MEDS ORDERED: fentaNYL* 50 MCG/ML 2 ML VIAL (100 MCG VIAL) ONE (12:33)
[2017-11-04] MEDS ORDERED: Ketorolac INJ* 30 MG/ML 1 ML VIAL ONE (12:33)
[2017-11-04] MEDS ORDERED: Propofol* 10 MG/ML 20 ML BTL IV PUSH ONE (12:33)
[2017-11-04] MEDS ORDERED: Chloroprocaine 2%* 20 ML VIAL ONE (12:35)
[2017-11-04] MEDS ORDERED: fentaNYL* 50 MCG/ML 2 ML VIAL (100 MCG VIAL) IV PRN (13:07)
[2017-11-04] MEDS ORDERED: DiMENhydriNATE IV* 50 MG/ML VIAL IV PUSH PRN (13:07)
[2017-11-04] MEDS ORDERED: Naloxone* 0.4 MG/ML 1 ML VIAL IV PRN (13:07)
[2017-11-04] MEDS ORDERED: oxyCODONE/Acetamin 5/325 MG* TAB PO PRN (13:07)
[2017-11-04 14:43] VITALS: BP 122/68
--- NOTE | 2017-11-05 10:15 | OP ---
CC: PCP OPERATIVE REPORT: DATE OF OPERATION: 11/04/17 DATE OF : 62 SURGEON: Fabio Pena MD UTILIZATION REVIEWER: None available. ANESTHESIOLOGIST: Benitez Espinoza MD ANESTHESIA: Spinal with local MAC. PRE-OP DIAGNOSIS: Right knee lateral meniscus bucket handle tear. POST-OP DIAGNOSES: Lateral bucket handle meniscus tear as well as medial meniscus tear. OPERATIVE PROCEDURE: Right knee partial medial and partial lateral meniscectomy with chondroplasty of patellofemoral joint. INDICATIONS: Markie Mc is a 57-year-old male, who sustained injury to his knee acutely just before October. He said his knee buckled on him and it was caught. We did an MRI, it demonstrated a displaced lateral bucket handle meniscus tear. Risks and benefits of surgery were discussed at length and included, but were not limited to, bleeding, infection, damage to nerves, vessels, surrounding structures, wound nonhealing, persistent pain, need for further surgery, scarring, stiffness, incomplete relief of symptoms, risks of anesthesia. He has elected to proceed. COMPLICATIONS: None. ESTIMATED BLOOD LOSS: Minimal. DESCRIPTION OF PROCEDURE: The patient was greeted in the preoperative area by the attending surgeon. Correct extremity was marked. Consent was confirmed. The patient was brought back to the operating suite where he was placed in the supine on the operating room table. He then was sat up and he then underwent spinal anesthesia, which he tolerated without difficulty. A nonsterile tourniquet was placed high on the proximal leg. The right leg was prepped and draped in the usual sterile fashion beginning with chlorhexidine soap, scrub, and alcohol wipe, and a final prep with ChloraPrep. After appropriate surgical pause indicating site, side, procedure, and administration of antibiotics, the knee was intraarticularly injected with 1% lidocaine with epi. The lateral portal was made sharply with 11 blade, scope was introduced into the joint, and the joint was examined. There were grade 2 changes, and some small area of grade 4 change to the patellar joint. There were unstable flaps with grade 2 and 3 changes that were debrided back. The trochlea had grade 2 changes, some small areas of grade 3 changes, and medial lateral gutters were intact with some loose cartilage debris, but no large pieces. The scope was brought into the notch. The ACL and PCL were identified and were found to be intact. The scope was brought into the medial compartment. There were grade 2 changes to the medial femoral condyle with small unstable flaps, which were debrided back using the shaver. The medial meniscus identified and found to be intact, but there was fraying at the body of meniscus and this was debrided back using the shaver. Once this was done, the knee was placed in figure-of-4 position and the lateral meniscus was identified. There were degenerative changes with unstable flaps and lateral femoral condyle had grade 2 changes, lateral plateau had grade 2 changes as well , which was debrided back using the shaver. There was a small area of grade 3 and 4 changes to the very lateral edge of the lateral femoral condyle. The meniscus was then probed and found to unstable, had torn at the root as well as at the body of the meniscus. This was then debrided back using biters and eduardo to a stable edge. Approximately, 65% of the meniscus was removed. Anteriorly, the remainder of the meniscus was preserved. Once this was done, final images were obtained. The meniscus was probed. All fluid and debris were copiously lavaged and the knee was thoroughly lavaged and irrigated. The wounds were copiously irrigated with sterile saline. The portals were closed with 3-0 nylon in interrupted fashion. The knee was intraarticularly injected with 1% lidocaine with epi. Sterile dressings were applied. A Cryo/Cuff was applied. He was then awoken from anesthesia and transferred to PACU in stable condition. POSTOPERATIVE PLAN: He will be weightbearing as tolerated. He will be allowed to work on range of motion as tolerated. DVT prophylaxis was considered, but deferred due to no previous personal or family history. I will see the patient back in approximately 14 days. [id number]/[facility] #: [id number] CAROL
== END 2017-11-04 15:00 | disposition home or self-care (01) ==
LOC: OREAST 10:30
PROVIDERS: ATTEND Orthopaedic Surgery
DX: S83.251A Bucket-handle tear of lateral meniscus, current injury, right knee, initial encounter (principal); S83.241A Other tear of medial meniscus, current injury, right knee, initial encounter; X50.0XXA Overexertion from strenuous movement or load, initial encounter; Y93.89 Activity, other specified; Y92.9 Unspecified place or not applicable; E78.5 Hyperlipidemia, unspecified; G89.29 Other chronic pain; I10 Essential (primary) hypertension; J45.909 Unspecified asthma, uncomplicated; M19.90 Unspecified osteoarthritis, unspecified site; Z87.891 Personal history of nicotine dependence; G47.33 Obstructive sleep apnea (adult) (pediatric); M54.5 Low back pain
CPT/HCPCS: J0690; J1100; J1885; J2001; J2250; J2400; J2704; J3010

== ENCOUNTER 2018-12-02 05:29 | Inpatient (IN) | payer MEDICARE, MEDICAID ==
--- NOTE | 2018-11-20 14:15 | HP ---
PREOPERATIVE HISTORY AND PHYSICAL: DATE OF SURGERY: 12/02/18 ATTENDING SURGEONS: Dr. Fabio Pena and Dr. Remy Garvey. ATTENDING PROVIDER: Dr. Pena * (DICTATED BY ALAYNA CHAVEZ) PROCEDURE: Left total knee replacement. CHIEF COMPLAINT: Left knee pain. HISTORY OF PRESENT ILLNESS: Markie is a 58-year-old male who presented to the clinic for followup of left knee pain due to end-stage osteoarthritis. He had failed conservative measures to include injections and has therefore agreed to undergo left total knee replacement. He also presents for followup of his right knee osteoarthritis and has had significant pain recently. He presented today for an injection. PAST MEDICAL HISTORY: 1. Degenerative disk disease of his lumbar spine. 2. Hypertension. 3. Asthma. 4. Hyperlipidemia. 5. Depression. 6. Chronic pain. 7. Diverticular disease. 8. Osteoarthritis. 9. Spinal stenosis. PAST SURGICAL HISTORY: 1. Deviated nasal septum. 2. Skin graft to the left leg. 3. Colonoscopy. 4. Right tibia ORIF. 5. Back surgery. 6. Three surgeries of the left hand. 7. Right knee meniscus surgery. 8. Right shoulder scope. 9. Right toe surgery. 10. Lesion removal from his forehead. The patient denies prior complications with anesthesia. MEDICATIONS: 1. Duloxetine 30 mg 1 by mouth every day. 2. Vicodin 5/300 one to two every 4 hours as needed for pain. 3. Percocet 10/325 one every 6 hours as needed for pain. 4. Albuterol one via nebulizer 4 times a day as needed. 5. Amlodipine 5 mg 1 by mouth every day. 6. Celebrex 200 mg once daily. 7. Cyclobenzaprine 10 mg 1 by mouth 3 times a day. 8. Cymbalta 30 mg 1 by mouth every day. 9. Dulera 100-5 mcg/ACT 2 puffs twice a day. 10. ProAir HFA 2 puffs every 4 hours as needed. 11. Lisinopril 10 mg 1 by mouth every day. 12. Tamsulosin 0.4 mg 1 by mouth every day. 13. OxyContin 30 mg 1 tab every 8 hours. 14. Breo Ellipta 200-25 mcg for inhalation daily. 15. Cialis 20 mg 1 tab 30 minutes prior to sexual activity. 16. Symbicort 80/4.5 mcg per ACT 1 puff twice a day. ALLERGIES: No known drug allergies. FAMILY HISTORY: Positive for cancer. Denies family history of DVT or PE. SOCIAL HISTORY: He is a nonsmoker. He denies alcohol use for the past month. He denies illegal drug use. REVIEW OF SYSTEMS: A 14-point review of systems was reviewed with the patient. Positive for current complaint, otherwise negative. Denies fever, chills, chest pain, shortness of breath, history of bleeding disorder, history of DVT or PE. PHYSICAL EXAMINATION GENERAL: A 58-year-old well-developed, well-nourished male, in no acute distress. VITAL SIGNS: Height 71, weight 258. Pulse 120, blood pressure 148/94, respiratory rate 18, temperature 96.4. BMI 36.0. HEENT: Normocephalic, atraumatic. PERRLA. Throat clear. NECK: Supple. PULMONARY: Lungs clear to auscultation bilaterally. No wheezing, rhonchi, or rales. CARDIO: Regular rate and rhythm. S1, S2. No murmurs, gallops, or rubs. No edema. ABDOMEN: Positive bowel sounds. Soft, nontender. NEURO: Alert and oriented x3. Cranial nerves grossly intact. MUSCULOSKELETAL: Left lower extremity: Skin is intact. No warmth or erythema. Tenderness to palpation over the medial and lateral joint line. Range of motion 0 to 120. Stable to varus and valgus stress, stable Rocío. Negative posterior drawer. Calves soft, nontender. +5/5 strength to ankle dorsiflexion and plantar flexion. +2 DP pulse. Sensation intact to light touch distally. STUDIES: Multiview x-rays of the bilateral knees reveal severe end-stage osteoarthritis with [id number] changes in the medial compartment of the left knee. IMPRESSION: Left knee osteoarthritis. PLAN/RECOMMENDATIONS: The patient is scheduled to undergo left total knee replacement with Dr. Pena on 12/02/18. We will touch base with Dr. Ferrer who manages his chronic pain meds for postop pain management plan. He will follow up in 10 to 14 days postoperatively for followup suture removal. He also presents with severe end- stage right knee osteoarthritis. Therefore, an injection was recommended to perform today in clinic by Dr. Pena to help decrease his pain. MEDICAL PROCEDURE: The right knee was prepped in sterile fashion. Dr. Pena used an 18-gauge needle to inject 2 cc of Kenalog, 2 cc of lidocaine, and 1 cc of bupivacaine in the left knee joint. The knee was cleaned, dressed, and bandaged. The patient tolerated the procedure well. ALAYNA CHAVEZ [id number]/[facility] #: [id number] [facility]
[~2018-12-02 05:29] MED LIST changes: -Buffered Lidocaine 0.9% SYRIN* 5 ML/SYR SYRINGE INTRADERM ONE; +Buffered Lidocaine 1% SYRIN* 1 ML/SYRINGE INTRADERM ONE; -Dexamethasone IV* 4 MG/ML 1 ML (4 MG) IV SLOW PU ONE; -Famotidine IV* 10 MG/ML 2 ML (20 mg) IV ONE; -Levalbuterol 0.63MG/3ML NEB* UNIT OF USE INH ONE; +Ondansetron TAB* 4 MG PO ONE; +Tranexamic Acid 1,000 MG in NS 0.9% 50 ML* (outpatient use) IV SCH
--- OUTSIDE RECORDS SUMMARY | 2018-12-02 05:35 | XMS REPORT | Continuity of Care Document ---
:1960 External Reference #:[id number] Author Name Maryjo Dodd PA-C Address [address] [facility], [place] [address] Care Team Providers Name Role Phone Lucas Arenas MD Primary Care Physician Unavailable Payers Date Identification Numbers Payment Provider Subscriber Effective: 2014 Policy Number: [id number] Medicare Markie Mc PayID: [id number] [address] [place] [address] Expires: 2015 Policy Number: [employer] Medicaid Markie Mc [id number] PayID: [id number] [address] [address] [place] [address] Policy Number: [id number] Medicaid Markie Mc PayID: [id number] [address] [place] [address] Problems Active Problems Provider Date Localized, primary osteoarthritis of Fabio Pena MD Onset: 04/30/2017 the shoulder region Strain of muscle(s) and tendon(s) of Fabio Pena MD Onset: 04/30/2017 the rotator cuff of right shoulder, subsequent encounter Localized, primary osteoarthritis Fabio Pena MD Onset: 05/16/2017 Body mass index 30+ - obesity 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, RN, Onset: 06/19/2017 JACKERMAN-BC Insomnia 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, RN, Onset: 06/19/2017 JACKERMAN-BC Sleep apnea 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, RN, Onset: 06/19/2017 JACKERMAN-BC Localized, primary osteoarthritis of Fabio Pena MD Onset: 08/29/2017 the pelvic region and thigh Lumbar radiculopathy Fabio Pena MD Onset: 08/29/2017 Lumbosacral 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 Shepherd 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 Low back pain Emanuel Shepherd MD Onset: 09/11/2017 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 Knee joint effusion Fabio Pena MD Onset: 10/15/2017 Current tear of lateral cartilage Fabio Pena MD Onset: 10/29/2017 AND/OR meniscus of knee Central sleep apnea syndrome 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, RN, Onset: 01/15/2018 JACKERMAN-BC Hypersomnia Malidna Bradley DNP, RN, Onset: 01/15/2018 JACKERMAN-BC Obstructive sleep apnea syndrome 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, RN, Onset: 05/07/2018 JACKERMAN-BC Localized, primary osteoarthritis of Fabio Pena MD Onset: 10/30/2018 the hand Family History Date Family Member(s) Observation Comments General Heart Disease General Diabetes General Cancer Father Diabetes Father due to Unknown Causes () Mother due to Cancer () Siblings 2 older brother, younger sister both healthy Social History Type Date Description Comments Sex Unknown Marital Status Lives With Alone 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 Tobacco Use Start: Unknown Former Cigarette Smoker for many years quit End: Unknown 1 Pack Daily more than 20 years ago (report from 2018) ETOH Use Occasionally consumes alcohol Recreational Drug Use Denies Drug Use Tobacco Use Start: Unknown Patient is a former End: Unknown smoker Smoking Status Reviewed: 11/18/18 Patient is a former smoker Exercise Type/Frequency Exercises sporadically Recovering from shoulder surgery 06/19/17 Allergies, Adverse Reactions, Alerts Description No Known Drug Allergies Medications Active Medications SIG Qnty Indications Ordering Date Provider Walker Auto Glides/5 Disp 1 rodríguez M17.12 Fabio Pena MD 11/18/2018 Adjustment Holes/-06/24" Ht71 Wt258 " Misc Duloxetine HCL 1 by mouth every 30caps Vassilios 04/22/[address] eileen Shepherd MD Part Vicodin 1-2 every 4 30tabs Vassilios 04/15/2018 5-300mg Tablets hours prn pain. MD Joao Hold if not fully awake. Percocet 1 q 6 hours prn 30tabs Vassilios 04/14/2018 10-325mg Tablets pain. Hold if MD Joao not fully awake Albuterol Sulfate 1 vial via 75ml Tamica Chao, 03/24/2015 nebulizer 4 M.D. Nebulizer times daily as needed Symbicort 1 puff twice a Unknown 80-4.5mcg/Act day Aerosol Cialis one tab 30 Unknown 20mg Tablets minutes prior to sexual activity Breo Ellipta Unknown 200-25mcg/Inh Aerosol Oxycontin Take 1 Tablet By Unknown 30mg Tab ER 12H Mouth Every 8 Abuse-Det Hours as Directed -- Maximum Daily Dose Tamsulosin HCL 1 by mouth every Unknown 0.4mg day Capsules Lisinopril 1 by mouth every Unknown 10mg Tablets day Proair HFA 2 puffs by mouth Unknown 108(90Base) every 4 hours as mcg/Act Aerosol needed Oxycodone-Acetaminophen take 1 tablet by Unknown mouth every 4 to 10-325mg Tablets 6 hours as needed for pain Dulera 2 puff twice a Unknown 100-5mcg/Act Aerosol day Cymbalta 1 by mouth every Unknown 30mg Caps DR Part day Cyclobenzaprine HCL one by mouth Unknown 10mg three times a Tablets day as needed spasm Celecoxib once daily Unknown 200mg Capsules Amlodipine Besylate 1 by mouth every Unknown 5mg day Tablets History Medications Oxycodone HCL 1-2 tabs by 30tamitch Pena MD 11/04/2017 - 5mg mouth every 6 12/14/2017 Tablets hours as needed Oxycodone HCL take 1 tab every 40tabs Fabio Pena MD 06/04/2017 - 10mg 8 hours as 06/19/2017 Tablets needed pain Keflex take 1 tab by 12caps Fabio Pena MD 06/03/2017 - 500mg mouth four times 06/19/2017 Capsules a day x 3 days. Do not take before surgery Oxycodone HCL 1-2 tabs by 56tabs Fabio Pena MD 06/03/2017 - 5mg mouth every 4-6 06/03/2017 Tablets hours as needed [place] 1-2 by mouth 30tabs S63.635A Tamica Chao, 03/22/2016 - 5-325mg q4-6 hour as M.D. 06/02/2017 Tablets needed pain [place] 1-2 by mouth 30tabs S63.635A Tamica Chao, 03/24/2015 - 5-325mg q4-6 hour as M.D. 02/17/2016 Tablets needed pain Mobic Take One Tablet 30tabs Mitul Almaraz, 11/07/2012 - 15mg Tablets By Mouth Once M.D. 06/24/2014 Daily With Food as Needed Morphine Sulfate ER 1 by mouth every Unknown - 6 hours 12/16/2017 30mg Caps ER 24HR Nuvigil 1 by mouth every Unknown - 250mg day 04/14/2018 Tablets Flexeril 1 by mouth three Unknown - 10mg times a day as 11/18/2016 Tablets needed Duloxetine HCL 1 by mouth every Unknown - 30mg day 11/15/[address] Gamino Medications Administered in Office Medication SIG Qnty Indications Ordering Provider Date Triamcinolone (Kenalog) Fabio Pena MD 11/18/2018 Injection Triamcinolone (Kenalog) Fabio Pena MD 10/30/2018 Injection Synvisc Or Synvisc-One Fabio Pena MD 07/08/2018 Injection 1 MG Injection Synvisc Or Synvisc-One Fabio Pena MD 07/08/2018 Injection 1 MG Injection Triamcinolone (Kenalog) Fabio Pena MD 04/15/2018 Injection Triamcinolone (Kenalog) Fabio Pena MD 04/15/2018 Injection Synvisc Or Synvisc-One Fabio Pena MD 12/17/2017 Injection 1 MG Injection Synvisc Or Synvisc-One Fabio Pena MD 11/19/2017 Injection 1 MG Injection Triamcinolone (Kenalog) Fabio Pena MD 10/08/2017 Injection Triamcinolone (Kenalog) Fabio Pena MD 10/08/2017 Injection Triamcinolone (Kenalog) Fabio Pena MD 08/13/2017 Injection Triamcinolone (Kenalog) Fabio Pena MD 08/13/2017 Injection Triamcinolone (Kenalog) Maryjo Dodd PA-C 05/16/2017 Injection Triamcinolone (Kenalog) Maryjo Dodd PA-C 05/16/2017 Injection Triamcinolone (Kenalog) Fabio Pena MD 04/30/2017 Injection Triamcinolone (Kenalog) Fabio Pena MD 04/30/2017 Injection Depomedrol 40MG Tamica Chao M.D. 03/21/2017 Injection Depomedrol 40MG Tamica Chao M.D. 03/21/2017 Injection Depomedrol 40MG Tamica Chao M.D. 11/28/2016 Injection Depomedrol 40MG Tamica Chao M.D. 11/28/2016 Injection Depomedrol 40MG aTmica Chao M.D. 07/30/2016 Injection Depomedrol 40MG Tamica Chao M.D. 07/30/2016 Injection Depomedrol 40MG Norma Rachel, PAZ-C 04/12/2016 Injection Depomedrol 40MG Patsy VeraDAldo 12/15/2015 Injection Depomedrol 40MG Norma Rachel, PAZ-C 08/22/2015 Injection Depomedrol 40MG Tamica Chao M.D. 06/30/2015 Injection Hyalagan Or Supartz, For Mitul Almaraz M.D. 02/26/2013 Intra-Articular Inject Per Dose Injection Hyalagan Or Supartz, For Bennett Lua, 02/20/2013 Intra-Articular Inject Per RPA-C Dose Injection Synvisc Or Synvisc-One Bennett Lau, 02/13/2013 Injection 1 MG RPA-C Injection Hyalagan Or Supartz, For Bennett Lau, 02/13/2013 Intra-Articular Inject Per RPA-C Dose Injection Hyalagan Or Supartz, For Bennett Lau, 02/05/2013 Intra-Articular Inject Per RPA-C Dose Injection Hyalagan Or Supartz, For Bennett Lau, 01/29/2013 Intra-Articular Inject Per RPA-C Dose Injection Hyalagan Or Supartz, For Bennett Lau, 01/22/2013 Intra-Articular Inject Per RPA-C Dose Injection Hyalagan Or Supartz, For Mitul Almaraz M.D. 01/15/2013 Intra-Articular Inject Per Dose Injection Hyalagan Or Supartz, For Mitul lAmaraz M.D. 01/08/2013 Intra-Articular Inject Per Dose Injection Hyalagan Or Supartz, For Mitul Almaraz M.D. 01/01/2013 Intra-Articular Inject Per Dose Injection Vital Signs Date Vital Result Comment 11/18/2018 8:55am Height 71 inches 5'11" Weight 258.00 lb Heart Rate 120 /min BP Systolic 148 mmHg BP Diastolic 94 mmHg Respiratory Rate 18 /min Body Temperature 96.4 F Pain Level 10 BMI (Body Mass Index) 36.0 kg/m2 10/30/2018 9:43am Height 71 inches 5'11" Weight 249.00 lb BP Systolic 130 mmHg BP Diastolic 82 mmHg Respiratory Rate 18 /min Pain Level 7 BMI (Body Mass Index) 34.7 kg/m2 07/08/2018 9:40am Height 71 inches 5'11" Weight 249.00 lb Heart Rate 87 /min Body Temperature 93.6 F Pain Level 7 O2 % BldC Oximetry 97 % BMI (Body Mass Index) 34.7 kg/m2 05/07/2018 2:44pm Height 71 inches 5'11" Weight 254.25 lb Heart Rate 80 /min BP Systolic 130 mmHg BP Diastolic 70 mmHg Respiratory Rate 20 /min O2 % BldC Oximetry 97 % BMI (Body Mass Index) 35.5 kg/m2 04/15/2018 1:47pm Height 71 inches 5'11" Heart Rate 64 /min BP Systolic 128 mmHg BP Diastolic 72 mmHg Body Temperature 97.8 F Pain Level 10 04/14/2018 1:38pm Height 71 inches 5'11" Weight 233.00 lb BP Systolic Sitting 130 mmHg BP Diastolic Sitting 80 mmHg BMI (Body Mass Index) 32.5 kg/m2 03/19/2018 1:01pm Height 71 inches 5'11" Weight 233.00 lb BP Systolic Sitting 120 mmHg BP Diastolic Sitting 80 mmHg Pain Level 7 BMI (Body Mass Index) 32.5 kg/m2 02/26/2018 10:22am Height 71 inches 5'11" Weight 233.00 lb BP Systolic Sitting 140 mmHg BP Diastolic Sitting 80 mmHg Pain Level 7 BMI (Body Mass Index) 32.5 kg/m2 01/15/2018 8:57am Height 71 inches 5'11" Weight 233.00 lb Heart Rate 88 /min BP Systolic Sitting 114 mmHg BP Diastolic Sitting 82 mmHg Respiratory Rate 14 /min O2 % BldC Oximetry 98 % BMI (Body Mass Index) 32.5 kg/m2 12/17/2017 11:34am Height 71 inches 5'11" Weight 240.00 lb BP Systolic 130 mmHg BP Diastolic 86 mmHg Respiratory Rate 18 /min Pain Level 0 BMI (Body Mass Index) 33.5 kg/m2 11/19/2017 1:14pm Height 71 inches 5'11" Weight 240.00 lb BP Systolic 130 mmHg BP Diastolic 80 mmHg Respiratory Rate 18 /min Body Temperature 97.1 F Pain Level 0 BMI (Body Mass Index) 33.5 kg/m2 10/29/2017 2:19pm Height 71 inches 5'11" Weight 240.00 lb BP Systolic 134 mmHg BP Diastolic 88 mmHg Respiratory Rate 18 /min Pain Level 7 BMI (Body Mass Index) 33.5 kg/m2 10/15/2017 10:08am Height 71 inches 5'11" Weight 240.00 lb Heart Rate 78 /min BP Systolic Sitting 144 mmHg Rue large cuff BP Diastolic Sitting 100 mmHg Rue large cuff Respiratory Rate 16 /min O2 % BldC Oximetry 97 % On Ra BMI (Body Mass Index) 33.5 kg/m2 10/09/2017 10:42am Height 71 inches 5'11" Weight 245.00 lb BP Systolic Sitting 140 mmHg BP Diastolic Sitting 90 mmHg Pain Level 8 BMI (Body Mass Index) 34.2 kg/m2 10/08/2017 12:00pm Height 71 inches 5'11" Heart Rate 73 /min BP Systolic 126 mmHg BP Diastolic 78 mmHg Respiratory Rate 16 /min Body Temperature 98.1 F Pain Level 7 09/11/2017 10:28am Height 71 inches 5'11" Weight 245.00 lb Heart Rate 76 /min BP Systolic Sitting 140 mmHg BP Diastolic Sitting 92 mmHg Pain Level 7 BMI (Body Mass Index) 34.2 kg/m2 08/29/2017 10:55am Height 71 inches 5'11" Weight 245.00 lb per pt Heart Rate 66 /min reg BP Systolic Sitting 124 mmHg Lue BP Diastolic Sitting 84 mmHg Lue Respiratory Rate 16 /min Pain Level 7 left hip BMI (Body Mass Index) 34.2 kg/m2 08/13/2017 10:33am Height 71 inches 5'11" Heart Rate 80 /min BP Systolic 138 mmHg BP Diastolic 88 mmHg Respiratory Rate 16 /min Body Temperature 97.6 F Pain Level 7 07/30/2017 9:42am Height 71 inches 5'11" Weight 253.00 lb BP Systolic 130 mmHg BP Diastolic 80 mmHg Respiratory Rate 18 /min Body Temperature 98.2 F Pain Level 4 BMI (Body Mass Index) 35.3 kg/m2 06/19/2017 2:06pm Height 71 inches 5'11" Weight 253.12 lb Heart Rate 98 /min BP Systolic Sitting 126 mmHg Rue large cuff BP Diastolic Sitting 74 mmHg Rue large cuff Respiratory Rate 16 /min O2 % BldC Oximetry 97 % On Ra BMI (Body Mass Index) 35.3 kg/m2 05/16/2017 2:18pm Height 71 inches 5'11" Weight 270.00 lb BP Systolic 114 mmHg BP Diastolic 74 mmHg Respiratory Rate 20 /min Pain Level 3 BMI (Body Mass Index) 37.7 kg/m2 04/30/2017 1:51pm Height 71 inches 5'11" Weight 270.00 lb Heart Rate 74 /min BP Systolic 127 mmHg BP Diastolic 74 mmHg Body Temperature 96.0 F BMI (Body Mass Index) 37.7 kg/m2 03/21/2017 3:31pm Height 70.25 inches 5'10.25" Weight 270.00 lb BP Systolic 124 mmHg BP Diastolic 78 mmHg Respiratory Rate 20 /min Pain Level 8 BMI (Body Mass Index) 38.5 kg/m2 11/28/2016 8:45am Height 70.25 inches 5'10.25" Weight 270.00 lb BP Systolic 150 mmHg BP Diastolic 120 mmHg Body Temperature 96.7 F BMI (Body Mass Index) 38.5 kg/m2 07/30/2016 8:41am Height 70.25 inches 5'10.25" Weight 270.00 lb Heart Rate 78 /min BP Systolic 151 mmHg BP Diastolic 97 mmHg Respiratory Rate 14 /min BMI (Body Mass Index) 38.5 kg/m2 04/12/2016 10:02am Height 70.25 inches 5'10.25" Weight 270.00 lb Pain Level 6 BMI (Body Mass Index) 38.5 kg/m2 03/08/2016 10:19am Height 70.25 inches 5'10.25" Weight 270.00 lb BP Systolic 140 mmHg BP Diastolic 80 mmHg Pain Level 7 BMI (Body Mass Index) 38.5 kg/m2 12/15/2015 2:00pm Height 70.25 inches 5'10.25" Weight 285.00 lb Pain Level 7 BMI (Body Mass Index) 40.6 kg/m2 08/22/2015 10:46am Height 70.25 inches 5'10.25" Weight 285.00 lb Pain Level 0 BMI (Body Mass Index) 40.6 kg/m2 07/25/2015 11:34am Height 70.25 inches 5'10.25" Weight 285.00 lb Body Temperature 97.8 F Pain Level 0 BMI (Body Mass Index) 40.6 kg/m2 06/30/2015 9:31am Height 70.25 inches 5'10.25" Weight 285.00 lb Pain Level 7 BMI (Body Mass Index) 40.6 kg/m2 05/19/2015 10:16am Height 70.25 inches 5'10.25" Weight 285.00 lb Pain Level 5 BMI (Body Mass Index) 40.6 kg/m2 04/21/2015 12:04pm Height 70.25 inches 5'10.25" Weight 285.00 lb Pain Level 0 in general BMI (Body Mass Index) 40.6 kg/m2 03/24/2015 10:07am Height 70.25 inches 5'10.25" Weight 285.00 lb Heart Rate 99 /min BP Systolic Sitting 138 mmHg BP Diastolic Sitting 92 mmHg Pain Level 6 BMI (Body Mass Index) 40.6 kg/m2 Results Test Date Facility Test Result H/L Range Note Inr/Protime 11/19/2018 [facility] Inr 0.91 N 0.82-1.[address] [place] [address] [phone] Laboratory test 11/19/2018 [facility] Partial 27.3 seconds N 26.0-38.[address] [place] [address] PTT [phone] Urinalysis 11/19/2018 [facility] Urine Color Michelle Profile [address] [place] [address] [phone] Urine Appearance Cloudy Urine Specific [place] 1.032 High 1.010-1.030 Urine pH 5.0 N 5-9 Urine Urobilinogen Negative Negative Urine Ketones Trace Abnormal Negative Urine Protein 1+(30 mg/dL) Abnormal Negative Urine Leukocytes Negative Negative Urine Blood Negative Negative * * Abnormal Negative 2 Urine Nitrite Negative Negative Urine Bilirubin Negative Negative Urine Glucose Negative Negative Urine White Blood Cell Absent Absent Urine Red Blood Cell 3+(>10/hpf) Abnormal Absent Urine Bacteria Absent Absent Urine Squamous Epithelial Cell Present Abnormal Absent Urine Calcium Oxalate Cryst Present Abnormal Absent CBC Auto Diff 11/19/2018 [facility] White Blood 10.7 10^3/uL N 3.5-10.8 [place] [address] [phone] Red Blood Count 4.79 10^6/uL N 4.18-5.48 Hemoglobin 13.5 g/dL Low 14.0-18.0 Hematocrit 41 % Low 42-52 Mean Corpuscular Volume 86 fL N 80-94 Mean Corpuscular Hemoglobin 28 pg N 27-31 Mean Corpuscular HGB Conc 33 g/dL N 31-36 Red Cell Distribution Width 15 % N 10.5-15 Platelet Count 234 10^3/uL N 150-450 Mean Platelet Volume 7.1 fL Low 7.4-10.4 Abs Neutrophils 8.7 10^3/uL High 1.5-7.7 Abs Lymphocytes 0.8 10^3/uL Low 1.0-4.8 Abs Monocytes 1.1 10^3/uL High 0-0.8 Abs Eosinophils 0.0 10^3/uL N 0-0.6 Abs Basophils 0.0 10^3/uL N 0-0.2 Abs Nucleated RBC 0.0 10^3/uL Granulocyte % 81.9 % Lymphocyte % 7.4 % Monocyte % 10.6 % Eosinophil % 0.0 % Basophil % 0.1 % Nucleated Red Blood Cells % 0.0 Type & Screen 11/19/2018 [facility] Patient Blood Type O Positive [address] [place] [address] [phone] Antibody Screen NEGATIVE Basic Metabolic Panel 11/19/2018 [facility] Sodium 137 mmol/L N [address] [place] [address] [phone] Potassium 4.5 mmol/L N 3.5-5.0 Chloride 107 mmol/L N 101-111 Co2 Carbon Dioxide 23 mmol/L N 22-32 Anion Gap 7 mmol/L N 2-11 Glucose 92 mg/dL N 70-100 Blood Urea Nitrogen 20 mg/dL N 6-24 Creatinine 0.79 mg/dL N 0.67-1.17 BUN/Creatinine Ratio 25.3 High 8-20 Calcium 10.5 mg/dL High 8.6-10.3 Egfr Non- 101.1 >60 Egfr 122.3 >60 3 Laboratory test 11/19/2018 [facility] TSH (Thyroid 0.36 mcIU/mL N 0.34-5.[address] Stim Horm) [place] [address] [phone] Free T4 (Free Thyroxine) 0.85 ng/dL N 0.61-1.12 Laboratory test 03/20/2018 [facility] Partial Thrombo <pending> finding [address] [place] [address] [phone] Urinalysis Profile 03/20/2018 [facility] Urine [place] [address] [phone] Urine Appearance Clear Urine Specific [place] 1.021 N 1.010-1.030 Urine pH 5.0 N 5-9 Urine Urobilinogen Negative Negative Urine Ketones Negative Negative Urine Protein Negative Negative Urine Leukocytes Negative Negative Urine Blood Negative Negative Urine Nitrite Negative Negative Urine Bilirubin Negative Negative Urine Glucose Negative Negative Laboratory test 03/20/2018 [facility] TSH (Thyroid 1.01 mcIU/mL N 0.34-5.[address] Stim Horm) [place] [address] [phone] Type & Screen 03/20/2018 [facility] Patient Blood O Positive [address] [place] [address] [phone] Antibody Screen NEGATIVE Inr/Protime 03/20/2018 [facility] Inr 0.91 N 0.77-1.02 [place] [address] [phone] Lipid Profile 03/20/2018 [facility] Triglycerides 137 mg/dL 4 (Trig/Chol/HDL) [address] [place] [address] [phone] Cholesterol 189 mg/dL 5 HDL Cholesterol 44.0 mg/dL 6 LDL Cholesterol 118 mg/dL 7 Comp Metabolic Panel 03/20/2018 [facility] Sodium 140 mmol/L N 135-145 [address] [place] [address] [phone] Potassium 3.7 mmol/L N 3.5-5.0 Chloride 108 mmol/L N 101-111 Co2 Carbon Dioxide 27 mmol/L N 22-32 Anion Gap 5 mmol/L N 2-11 Glucose 98 mg/dL N 70-100 Blood Urea Nitrogen 13 mg/dL N 6-24 Creatinine 0.70 mg/dL N 0.67-1.17 BUN/Creatinine Ratio 18.6 N 8-20 Calcium 9.8 mg/dL N 8.6-10.3 Total Protein 6.3 g/dL Low 6.4-8.9 Albumin 4.3 g/dL N 3.2-5.2 Globulin 2.0 g/dL N 2-4 Albumin/Globulin Ratio 2.2 N 1-3 Total Bilirubin 0.70 mg/dL N 0.2-1.0 Alkaline Phosphatase 77 U/L N 34-104 Alt 14 U/L N 7-52 Ast 13 U/L N 13-39 Egfr Non- 116.7 >60 Egfr 141.2 >60 8 Laboratory test 03/20/2018 [facility] Partial 32.4 seconds N 26.0-36.3 finding [address] [facility] [place] [address] PTT [phone] CBC Auto Diff 03/20/2018 [facility] White Blood 5.0 10^3/uL N 3.5-10.8 [address] [place] [address] [phone] Red Blood Count 4.78 10^6/uL N 4.00-5.40 Hemoglobin 14.6 g/dL N 14.0-18.0 Hematocrit 43 % N 42-52 Mean Corpuscular Volume 89 fL N 80-94 Mean Corpuscular Hemoglobin 31 pg N 27-31 Mean Corpuscular HGB Conc 34 g/dL N 31-36 Red Cell Distribution Width 14 % N 10.5-15 Platelet Count 242 10^3/uL N 150-450 Mean Platelet Volume 6.9 um3 Low 7.4-10.4 Abs Neutrophils 3.0 10^3/uL N 1.5-7.7 Abs Lymphocytes 1.4 10^3/uL N 1.0-4.8 Abs Monocytes 0.5 10^3/uL N 0-0.8 Abs Eosinophils 0.1 10^3/uL N 0-0.6 Abs Basophils 0 10^3/uL N 0-0.2 Abs Nucleated RBC 0 10^3/uL Granulocyte % 60.0 % N 38-83 Lymphocyte % 27.2 % N 25-47 Monocyte % 10.0 % High 0-7 Eosinophil % 2.0 % N 0-6 Basophil % 0.8 % N 0-2 Nucleated Red Blood Cells % 0.2 Laboratory test 07/15/2015 [facility] Surgical SEE RESULT [address] [place] [address] [phone] 1 Standard intensity warfarin therapeutic range: 2.0-3.0 High intensity warfarin therapeutic range: 2.5-3.5 2 *Ascorbic acid is present which may interfere with detection of blood. 3 Because ethnic data is not always readily available, this report includes an eGFR for both -Americans and non- Americans. The National Kidney Disease Education Program (NKDEP) does not endorse the use of the MDRD equation for patients that are not between the ages of 18 and 70, are , have extremes of body size, muscle mass, or nutritional status, or are non- or non-. According to the National Kidney Foundation, irrespective of diagnosis, the stage of the disease is based on the level of kidney function: Stage Description GFR(mL/min/1.73 m(2)) 1 Kidney damage with normal or decreased GFR 90 2 Kidney damage with mild decrease in GFR 60-89 3 Moderate decrease in GFR 30-59 4 Severe decrease in GFR 15-29 5 Kidney failure <15 (or dialysis) 4 Desirable: <150 Borderline High: 150-199 High: 200-499 Very High: >500 5 Desirable: <200 Borderline High: 200-239 High: >239 6 Low: <40 Desirable: 40-60 High: >60 7 Desirable: <100 Near Optimal: 100-129 Borderline High: 130-159 High: 160-189 Very High: >189 8 Because ethnic data is not always readily available, this report includes an eGFR for both -Americans and non- Americans. The National Kidney Disease Education Program (NKDEP) does not endorse the use of the MDRD equation for patients that are not between the ages of 18 and 70, are , have extremes of body size, muscle mass, or nutritional status, or are non- or non-. According to the National Kidney Foundation, irrespective of diagnosis, the stage of the disease is based on the level of kidney function: Stage Description GFR(mL/min/1.73 m(2)) 1 Kidney damage with normal or decreased GFR 90 2 Kidney damage with mild decrease in GFR 60-89 3 Moderate decrease in GFR 30-59 4 Severe decrease in GFR 15-29 5 Kidney failure <15 (or dialysis) 9 SEE RESULT BELOW Name: MARKIE MC : [address]: Tamica Chao MD Acct: [id number] Unit: [id number] AGE: 55 Location: [facility] Re07/15/15 SEX: M Status: REG [facility] SPEC: [id number] SMITHA: 07/15/15-[address]: Tamica Chao MD REQ: [id number] RECD: 07/15/156 STATUS: SOUT _ ORDERED: Decal, LEVEL III [...] aggregate of hansen white irregular bone fragments. [employer] sections, one cassette following decalcification. MICROSCOPIC DESCRIPTION Signed (signature on file) Carlito Ayala MD [id number] END OF REPORT * ML=Testing performed at Main Lab DEPARTMENT OF PATHOLOGY, [address] [place] [address] Carlito Ayala M.D. Director [facility] # [id number] Procedures Date Code Description Status 11/18/2018 Inject/Drain Joint/Bursa Major W/O US Completed 10/30/2018 Inject/Drain Joint/Bursa Small W/O US Completed 07/08/2018 69125 Inj/Aspir Major JT Or Bursa W/ US Completed 04/15/2018 Inject/Drain Joint/Bursa Major W/O US Completed 04/04/2018 12577 Stereotactic Computer-Assisted, Spinal Completed 04/04/2018 93609 Non-Segmental Instrumentation Posterior 1 Interspace Completed 04/04/201843082 Arhtrodesis Post Lateral W/Lami-Lumbar Completed 04/04/2018 Allograft For Spine Surgery, Morselized Completed 03/28/2018 53168 Insertion Interbody Biomechanical Device; Each Interspace Completed 03/28/2018 02362 Anterior Instrumentation 2-3 Vertebral Segments Completed 03/28/2018 07393 Arthrodesis Anterior Interbody Technique W/Diskectomy, Completed Lumbar 03/28/201839913 Allograft For Spine Surgery, Morselized Completed 12/17/201729791 Inject/Drain Joint/Bursa Major W/O US Completed 11/19/2017 10256 Inject/Drain Joint/Bursa Major W/O US Completed 11/04/2017 73306 Arthroscopy,Knee,Meniscectomy Media & Lateral Completed 10/08/2017 57741 Inject/Drain Joint/Bursa Small W/O US Completed 08/13/2017 11696 Inject/Drain Joint/Bursa Major W/O US Completed 07/10/2017 50608 Polysomnography Sleep Staging 4+ Parameters W/Cpap Completed 06/27/2017 26680 Polysomnography Sleep Staging 4+ Parameters Completed 06/05/2017 31594 Arthroscopy Biceps Tenodesis Completed 06/05/2017 16179 Arthroscopy Biceps Tenodesis Completed 06/05/2017 90518 Arthroscopy Shoulder,W/Rotator Cuff Repair Completed 06/05/2017 52617 Arthroscopy Shoulder,W/Rotator Cuff Repair Completed 06/05/2017 57979 Arthroscopy,Shoulder Decompression Of Subacromial Space Completed W/Acromio 06/05/2017 05906 Arthroscopy,Shoulder Decompression Of Subacromial Space Completed W/Acromio 05/16/2017 91112 Inject/Drain Joint/Bursa Major W/O US Completed 04/30/2017 12685 Inject/Drain Joint/Bursa Major W/O US Completed 03/21/2017 Inject/Drain Joint/Bursa Small W/O US Completed 11/28/2016 Inject/Drain Joint/Bursa Small W/O US Completed 11/28/2016 95729 Inject Tendon Sheath Or Ligament Aponeurosis Eg Plantar Completed Fascia 07/30/201686657 Inject/Drain Joint/Bursa Small W/O US Completed 04/12/2016 03421 Inject Tendon Sheath Or Ligament Aponeurosis Eg Plantar Completed Fascia 03/23/2016 92272 Trigger Finger Release Incision / Tendon Sheath Incision Completed 03/23/2016 62153 Trigger Finger Release Incision / Tendon Sheath Incision Completed 12/15/2015 37643 Inject Tendon Sheath Or Ligament Aponeurosis Eg Plantar Completed Fascia 08/22/2015 24265 Inject Tendon Sheath Or Ligament Aponeurosis Eg Plantar Completed Fascia 08/22/201518072 Inject Tendon Sheath Or Ligament Aponeurosis Eg Plantar Completed Fascia 07/15/201547166 Arthroplasty Interphalangeal Joint W/Prosthetic Implant Completed 07/15/201522873 Arthroplasty Interphalangeal Joint W/Prosthetic Implant Completed 06/30/201569883 Inject Tendon Sheath Or Ligament Aponeurosis Eg Plantar Completed Fascia 04/08/2015 54376 Repair Of Collateral Ligament Metacarpophalangeal Or Completed Interphl JT 04/08/2015 22717 Repair Of Collateral Ligament Metacarpophalangeal Or Completed Interphl JT 04/08/2015 74468 Repair Of Collateral Ligament Metacarpophalangeal Or Completed Interphl JT 12/24/2013 79298 EKG, Interpretation Only Completed 02/26/201395247 Inject/Drain Joint/Bursa Major W/O US Completed 02/20/2013 Inject/Drain Joint/Bursa Major W/O US Completed 02/13/201347695 Inject/Drain Joint/Bursa Major W/O US Completed 02/05/201391835 Inject/Drain Joint/Bursa Major W/O US Completed 01/29/2013 81065 Inject/Drain Joint/Bursa Major W/O US Completed 01/22/201312322 Inject/Drain Joint/Bursa Major W/O US Completed 01/15/201308110 Inject/Drain Joint/Bursa Major W/O US Completed 01/08/201366994 Inject/Drain Joint/Bursa Major W/O US Completed 01/01/201342752 Inject/Drain Joint/Bursa Major W/O US Completed 11/07/2012 10369 Xray Knee 3 Views Completed 11/07/2012 54899 Rad Exam; Knee, Ap&L Completed Encounters Type Date Location Provider Dx Diagnosis Office Visit 10/30/2018 Orthopedic Fabio Pena MD M17.12 Unilateral primary 9:30a Services Of MasonMAldoA. 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) Z68.35 Body mass index (BMI) 35.0-35.9, adult Office Visit 02/26/2018 Neurosurgery Vassilios M48.061 Spinal 10:30a Services Of Thelma Shepherd MD stenosis, lumbar region without neurogenic anthony M51.37 Other intervertebral disc degeneration, lumbosacral region M47.26 Other spondylosis with radiculopathy, lumbar region Office Visit 01/15/2018 Pulmonology And Malinda G47.33 Obstructive sleep 9:30a Sleep Services Of CECILIO Bradley, RN, apnea (adult) [facility] JACKERMAN-BC (pediatric) G47.37 Central sleep apnea in conditions classified elsewhere G47.14 Hypersomnia due to medical condition Office Visit 11/19/2017 1:15p Orthopedic Fabio Pena, S83.251A Bucket- hndl tear Services Of [facility], C.M.A. current injury, r knee, init M17.0 Bilateral primary osteoarthritis of knee M54.16 Radiculopathy, lumbar region M17.12 Unilateral primary osteoarthritis, left knee Office Visit 10/29/2017 2:15p Orthopedic Fabio Pena, S83.251A Bucket- hndl tear Services Of of david angulo, C.M.A. 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 M25.561 Pain in right knee Office 10/09/2017 Neurosurgery Vassilios M47.26 Other spondylosis Visit 10:00a Services Of Thelma Shepherd MD with radiculopathy, lumbar region M54.5 Low back pain M51.37 Other intervertebral disc degeneration, lumbosacral region M48.061 Spinal stenosis, lumbar region without neurogenic anthony Office Visit 10/08/2017 Orthopedic Fabio Pena, M16.12 Unilateral primary 11:15a Services Of osteoarthritis, left C.M.A. hip M54.16 Radiculopathy, lumbar region M17.0 Bilateral primary osteoarthritis of knee M75.121 Complete rotatr-cuff tear/ruptr of r shoulder, not trauma M18.0 Bilateral primary osteoarth of first carpometacarp joints Z47.89 Encounter for other orthopedic aftercare Office 09/11/2017 Neurosurgery Vassilios M47.26 Other spondylosis Visit 10:30a Services Of Thelma Shepherd MD with radiculopathy, lumbar region M54.5 Low back pain M51.37 Other intervertebral disc degeneration, lumbosacral region Office Visit 08/29/2017 Orthopedic Fabio Pena, M16.12 Unilateral primary 11:00a Services Of osteoarthritis, left C.M.A. hip M54.16 Radiculopathy, lumbar region Office Visit 06/19/2017 Pulmonology And Malinda G47.00 Insomnia, 2:30p Sleep Services Of CECILIO Bradley, RN, unspecified [facility] JACKERMAN-BC G47.10 Hypersomnia, unspecified G47.50 Parasomnia, unspecified E66.9 Obesity, unspecified Z68.35 Body mass index (BMI) 35.0-35.9, adult Office Visit 05/16/2017 Orthopedic Fabio Pena, M19.011 Primary 2:15p Services Of osteoarthritis, C.M.A. right shoulder M17.0 Bilateral primary osteoarthritis of knee M75.121 Complete rotatr-cuff tear/ruptr of r shoulder, not trauma M75.21 Bicipital tendinitis, right shoulder Office Visit 04/30/2017 Orthopedic Fabio Pena, M19.011 Primary 1:30p Services Of osteoarthritis, C.M.A. right shoulder S46.011D Strain of musc/tend the rotator cuff of right shoulder, subs M17.0 Bilateral primary osteoarthritis of knee Office Visit 04/12/2016 10:00a Orthopedic Norma Ramos, M65.342 Trigger Services Of RPA-C finger, left C.M.A. ring finger Office Visit 03/08/2016 10:00a Orthopedic Tamica Chao, M65.332 Trigger Services Of M.D. finger, left C.M.A. middle finger Office Visit 12/15/2015 2:00p Orthopedic Tamica Chao M65.332 Trigger Services Of M.D. finger, left C.M.A. middle finger M19.042 Primary osteoarthritis, left hand Office Visit 08/22/2015 10:20a Orthopedic Norma Ramos, M65.332 Trigger Services Of RPA-C finger, left C.M.A. middle finger S63.635D Sprain of interphalangeal joint of left ring finger, subs Office Visit 06/30/2015 Orthopedic Tamica S63.635D Sprain of 9:20a Services Of Clare Chao interphalangeal C.M.A. joint of left ring finger, subs M65.332 Trigger finger, left middle finger M19.042 Primary osteoarthritis, left hand Office Visit 03/24/2015 Orthopedic Tamica S63.635A Sprain of 10:30a Services Of Clare Chao interphalangeal C.M.A. 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 Localized Prim Lower Leg Plan of Treatment Future Appointment(s):12/12/2018 10:00 am - Maryjo Dodd PA-C at Orthopedic Services Of C.M.A.12/02/2018 7:30 am - Fabio Pena MD at Orthopedic Services Of C.M.A.12/02/2018 7:30 am - Remy Garvey M.D. at Orthopedic Services Of C.M.A.05/08/2019 10:00 am - 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, RN, JACKERMAN -BC at Pulmonology And Sleep Services Of [facility]11/18/2018 - Fabio Pena, MDM17.12 Unilateral primary osteoarthritis, left kneeNew Medication:Walker Auto Glides/5 Adjustment Holes/-06/24" 1-" - Disp 1 walker Ht71 Rf654A47.562 Pain in left kneeM17.11 Unilateral primary osteoarthritis, right kneeFollow up:Follow up: 10-14 days post op with Dr. Pena
--- OUTSIDE RECORDS SUMMARY | 2018-12-02 05:36 | XMS REPORT | Continuity of Care Document ---
:1960 External Reference #:[id number] Author Name Donna Westfall Care Team Providers Name Role Phone Lucas Arenas MD Primary Care Physician Unavailable Payers Date Identification Numbers Payment Provider Subscriber Effective: 2014 Policy Number: [id number] Medicare Markie Mc PayID: [id number] [address] [place] [address] Expires: 2015 Policy Number: [employer] Medicaid Markie Mc [id number] PayID: [id number] [address] [address] [place] [address] Policy Number: [id number] Medicaid Markie Mc PayID: [id number] [address] [place] [address] Problems Active Problems Provider Date Localized, primary osteoarthritis of Fabio Pena MD Onset: 04/30/2017 the shoulder region Strain of muscle(s) and tendon(s) of Fabio Pena MD Onset: 04/30/2017 the rotator cuff of right shoulder, subsequent encounter Localized, primary osteoarthritis Fabio Pena MD Onset: 05/16/2017 Body mass index 30+ - obesity 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, RN, Onset: 06/19/2017 WEB ANALYST-BC Insomnia 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, RN, Onset: 06/19/2017 WEB ANALYST-BC Sleep apnea 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, RN, Onset: 06/19/2017 WEB ANALYST-BC Localized, primary osteoarthritis of Fabio Pena MD Onset: 08/29/2017 the pelvic region and thigh Lumbar radiculopathy Fabio Pena MD Onset: 08/29/2017 Lumbosacral spondylosis without Vassilios MD Joao Onset: 09/11/2017 myelopathy Low back pain Emanuel Shepherd MD Onset: 09/11/2017 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 Knee joint effusion Fabio Pena MD Onset: 10/15/2017 Current tear of lateral cartilage Fabio Pena MD Onset: 10/29/2017 AND/OR meniscus of knee Central sleep apnea syndrome 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, RN, Onset: 01/15/2018 WEB ANALYST-BC Hypersomnia 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, RN, Onset: 01/15/2018 WEB ANALYST-BC Obstructive sleep apnea syndrome 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, RN, Onset: 05/07/2018 WEB ANALYST-BC Localized, primary osteoarthritis of Fabio Pena MD Onset: 10/30/2018 the hand Family History Date Family Member(s) Observation Comments General Heart Disease General Diabetes General Cancer Father Diabetes Father due to Unknown Causes () Mother due to Cancer () Siblings 2 older brother, younger sister both healthy Social History Type Date Description Comments Sex Unknown Marital Status Lives With Alone Occupation Disabled [employer] Tobacco Use Start: Unknown Former Cigarette Smoker [...] Medications SIG Qnty Indications Ordering Date Provider Duloxetine HCL 1 by mouth every 30caps [...] needed pain Keflex take 1 tab by 12capiván Pena MD 06/03/2017 - 500mg mouth four times 06/19/2017 Capsules a day x 3 days. Do not take before surgery Oxycodone HCL 1-2 tabs by 56tamitch Pena MD 06/03/2017 - 5mg mouth every 4-6 06/03/2017 Tablets hours as needed [place] 1-2 by mouth 30tabs S63.635A Tamica Chao 03/22/2016 - 5-325mg q4-6 hour as M.D. 06/02/2017 Tablets needed pain [place] 1-2 by mouth 30tabs S63.635A Tamica Chao, [...] Unknown - 30mg day 11/15/[address] Part Medications Administered in Office Medication SIG Qnty Indications Ordering Provider Date Triamcinolone (Kenalog) Fabio Pena MD 10/30/2018 Injection [...] Maryjo Dodd PA-C 05/16/2017 Injection Triamcinolone (Kenalog) ALAYNA Holden-Lorenzo 05/16/2017 Injection Triamcinolone (Kenalog) Fabio Pena MD 04/30/2017 Injection Triamcinolone (Kenalog) Fabio Pena MD 04/30/2017 Injection Depomedrol 40MG Tamica Chao M.D. 03/21/2017 Injection Depomedrol 40MG Tamica Chao M.D. 03/21/2017 Injection Depomedrol 40MG Tamica Chao M.D. 11/28/2016 Injection Depomedrol 40MG Tamica Chao M.D. 11/28/2016 Injection Depomedrol 40MG Tamica Chao M.D. 07/30/2016 Injection Depomedrol 40MG Tamica Chao M.D. 07/30/2016 Injection Depomedrol 40MG Norma Alonsoting, RPA-C 04/12/2016 Injection Depomedrol 40MG Tamica Chao M.D. 12/15/2015 Injection Depomedrol 40MG Norma Bitting, RPA-C 08/22/2015 Injection Depomedrol 40MG Tamica Chao M.D. 06/30/2015 Injection Hyalagan Or Supartz, For Mitul Almaraz M.D. 02/26/2013 Intra-Articular Inject Per Dose Injection Hyalagan Or Supartz, For Bennett Lau, 02/20/2013 Intra-Articular Inject Per RPA-C Dose Injection [...] Hyalagan Or Supartz, For Mitul Almaraz M.D. 01/08/2013 Intra-Articular Inject Per Dose Injection [...] Date Facility Test Result H/L Range Note Urinalysis Profile 03/20/2018 [facility] [place] [address] [phone] Urine Appearance Clear Urine Specific [place] 1.021 N 1.010-1.030 Urine pH 5.0 N 5-9 Urine Urobilinogen Negative Negative Urine Ketones Negative Negative Urine Protein Negative Negative Urine Leukocytes Negative Negative Urine Blood Negative Negative Urine Nitrite Negative Negative Urine Bilirubin Negative Negative Urine Glucose Negative Negative Laboratory 03/20/2018 [facility] TSH (Thyroid Stim 1.01 N 0.34 -5.[address] Horm) mcIU/[place] [address] [phone] Lipid Profile 03/20/2018 [facility] Triglycerides 137 mg/dL 1 (Trig/Chol/HDL [address] ) [place] [address] [phone] Cholesterol 189 mg/dL 2 HDL Cholesterol 44.0 mg/dL 3 LDL Cholesterol 118 mg/dL 4 Laboratory test 03/20/2018 [facility] Partial <pending> finding [address] [place] [address] PTT [phone] Comp Metabolic 03/20/2018 [facility] Sodium 140 mmol/L N 135- [address] [place] [address] [phone] Potassium 3.7 mmol/L N 3.5-5.0 Chloride 108 [...] Egfr Non- 116.7 >60 Egfr 141.2 >60 5 CBC Auto Diff 03/20/2018 [facility] White Blood 5.0 10^3/uL N 3.5-10.[address] [place] [address] [phone] Red Blood Count 4.78 10^6/uL N 4.00-5.40 [...] Red Blood Cells % 0.2 Laboratory test 03/20/2018 [facility] Partial 32.4 seconds N 26.0-36.[address] [place] [address] PTT [phone] Type & Screen 03/20/2018 [facility] Patient O Positive [address] Blood Type [place], [place] [id number] [phone] Antibody Screen NEGATIVE Inr/Protime 03/20/2018 [facility] Inr 0.91 N 0.77-1.[address] [place] [address] [phone] Laboratory test 07/15/2015 [facility] Surgical SEE RESULT [address] [place] [address] [phone] 1 Desirable: <150 Borderline High: 150-199 High: 200-499 Very High: >500 2 Desirable: <200 Borderline High: 200-239 High: >239 3 Low: <40 Desirable: 40-60 High: >60 4 Desirable: <100 Near Optimal: 100-129 Borderline High: 130-159 High: 160-189 Very High: >189 5 Because ethnic data is not always readily [...] 15-29 5 Kidney failure <15 (or dialysis) 6 SEE RESULT BELOW Name: MARKIE MC : [address]: Tamica Chao MD Acct: [id number] Unit: [id number] AGE: 55 Location: [facility] Re07/15/15 SEX: M Status: REG [facility] SPEC: [id number] SMITHA: 07/15/15-[address] [facility] [address]: Tamica Chao MD REQ: [id number] RECD: 07/15/156484 STATUS: SOUT _ ORDERED: Decal, LEVEL III [...] aggregate of hansen white irregular bone fragments. Stem Sizer sections, one cassette following decalcification. MICROSCOPIC DESCRIPTION Signed (signature on file) Carlito Ayala MD 1608 END OF REPORT * ML=Testing performed at Main Lab DEPARTMENT OF PATHOLOGY, [address] [place] [address] Carlito Ayala M.D. Director [facility] # [id number] Procedures Date Code Description Status 11/18/2018 Inject/Drain Joint/Bursa Major W/O US Completed 10/30/2018 Inject/Drain Joint/Bursa Small W/O US Completed 07/08/2018 78529 Inj/Aspir Major JT Or Bursa W/ US Completed 04/15/2018 Inject/Drain Joint/Bursa Major W/O US Completed 04/04/2018 74703 Stereotactic Computer-Assisted, Spinal Completed 04/04/2018 90190 Non-Segmental Instrumentation Posterior 1 Interspace Completed 04/04/2018 81217 Arhtrodesis Post Lateral W/Lami-Lumbar Completed 04/04/201822756 Allograft For Spine Surgery, Morselized Completed 03/28/2018 59924 Insertion Interbody Biomechanical Device; Each Interspace Completed 03/28/2018 07840 Anterior Instrumentation 2-3 Vertebral Segments Completed 03/28/2018 38510 Arthrodesis Anterior Interbody Technique W/Diskectomy, Completed Lumbar 03/28/2018 20778 Allograft For Spine Surgery, Morselized Completed 12/17/2017 Inject/Drain Joint/Bursa Major W/O US Completed 11/19/2017 Inject/Drain Joint/Bursa Major W/O US Completed 11/04/2017 29389 Arthroscopy,Knee,Meniscectomy Media & Lateral Completed 10/08/2017 Inject/Drain Joint/Bursa Small W/O US Completed 08/13/2017 10752 Inject/Drain Joint/Bursa Major W/O US Completed 07/10/2017 27792 Polysomnography Sleep Staging 4+ Parameters W/Cpap Completed 06/27/2017 64334 Polysomnography Sleep Staging 4+ Parameters Completed 06/05/2017 87225 Arthroscopy Biceps Tenodesis Completed 06/05/2017 45950 Arthroscopy Biceps Tenodesis Completed 06/05/2017 43840 Arthroscopy Shoulder,W/Rotator Cuff Repair Completed 06/05/2017 37273 Arthroscopy Shoulder,W/Rotator Cuff Repair Completed 06/05/2017 75675 Arthroscopy,Shoulder Decompression Of Subacromial Space Completed W/Acromio 06/05/2017 65501 Arthroscopy,Shoulder Decompression Of Subacromial Space Completed W/Acromio 05/16/2017 19472 Inject/Drain Joint/Bursa Major W/O US Completed 04/30/2017 89959 Inject/Drain Joint/Bursa Major W/O US Completed 03/21/2017 21955 Inject/Drain Joint/Bursa Small W/O US Completed 11/28/2016 22633 Inject/Drain Joint/Bursa Small W/O US Completed 11/28/2016 11719 Inject Tendon Sheath Or Ligament Aponeurosis Eg Plantar Completed Fascia 07/30/2016 67001 Inject/Drain Joint/Bursa Small W/O US Completed 04/12/2016 53767 Inject Tendon Sheath Or Ligament Aponeurosis Eg Plantar Completed Fascia 03/23/2016 01444 Trigger Finger Release Incision / Tendon Sheath Incision Completed 03/23/2016 77274 Trigger Finger Release Incision / Tendon Sheath Incision Completed 12/15/2015 28567 Inject Tendon Sheath Or Ligament Aponeurosis Eg Plantar Completed Fascia 08/22/2015 45631 Inject Tendon Sheath Or Ligament Aponeurosis Eg Plantar Completed Fascia 08/22/2015 18142 Inject Tendon Sheath Or Ligament Aponeurosis Eg Plantar Completed Fascia 07/15/2015 83655 Arthroplasty Interphalangeal Joint W/Prosthetic Implant Completed 07/15/2015 56883 Arthroplasty Interphalangeal Joint W/Prosthetic Implant Completed 06/30/2015 57643 Inject Tendon Sheath Or Ligament Aponeurosis Eg Plantar Completed Fascia 04/08/2015 27274 Repair Of Collateral Ligament Metacarpophalangeal Or Completed Interphl JT 04/08/2015 19364 Repair Of Collateral Ligament Metacarpophalangeal Or Completed Interphl JT 04/08/2015 84403 Repair Of Collateral Ligament Metacarpophalangeal Or Completed Interphl JT 12/24/2013 42282 EKG, Interpretation Only Completed 02/26/2013 Inject/Drain Joint/Bursa Major W/O US Completed 02/20/2013 Inject/Drain Joint/Bursa Major W/O US Completed 02/13/2013 Inject/Drain Joint/Bursa Major W/O US Completed 02/05/2013 Inject/Drain Joint/Bursa Major W/O US Completed 01/29/2013 Inject/Drain Joint/Bursa Major W/O US Completed 01/22/2013 Inject/Drain Joint/Bursa Major W/O US Completed 01/15/2013 Inject/Drain Joint/Bursa Major W/O US Completed 01/08/2013 Inject/Drain Joint/Bursa Major W/O US Completed 01/01/2013 Inject/Drain Joint/Bursa Major W/O US Completed 11/07/2012 66231 Xray Knee 3 Views Completed 11/07/2012 90057 Rad Exam; Knee, Ap&L Completed Encounters Type Date Location Provider Dx Diagnosis Office Visit 10/30/2018 Orthopedic Fabio Pena MD M17.12 Unilateral primary 9:30a Services Of Irlanda osteoarthritis, left knee M25.541 Pain in joints of right hand Office Visit 05/07/2018 Pulmonology And Malinda G47.33 Obstructive sleep 2:30p Sleep Services Of CECILIO Bradley RN, apnea (adult) Thelma JAEGER-BC (pediatric) Z68.35 Body mass index (BMI) 35.0-35.9, adult Office Visit 02/26/2018 Neurosurgery Vassilios M48.061 Spinal 10:30a Services Of Thelma Shepherd MD stenosis, lumbar region without neurogenic anthony M51.37 Other intervertebral disc degeneration, lumbosacral region M47.26 Other spondylosis with radiculopathy, lumbar region Office Visit 01/15/2018 Pulmonology And Malinda G47.33 Obstructive sleep 9:30a Sleep Services Of CECILIO Bradley RN, apnea (adult) Thelma JAEGER-BC (pediatric) G47.37 Central sleep apnea in conditions classified elsewhere G47.14 Hypersomnia due to medical condition Office Visit 11/19/2017 1:15p Orthopedic Fabio Pena, S83.251A Bucket- hndl tear Services Of of david angulo, C.M.A. current injury, r knee, init M17.0 [...] Sleep Services Of MD Marissa apnea (adult) Barge Master (pediatric) G47.37 Central sleep apnea in conditions classified elsewhere G47.00 Insomnia, unspecified E66.09 Other obesity due to excess calories Office Visit 10/15/2017 2:45p Orthopedic Fabio Pena, M25.461 Effusion, right Services Of knee C.M.A. M25.561 Pain in right knee Office 10/09/2017 Neurosurgery Vassilios M47.26 Other spondylosis Visit 10:00a Services Of Thelma Shepherd MD with radiculopathy, lumbar region M54.5 Low back pain M51.37 Other intervertebral disc degeneration, lumbosacral region M48.061 Spinal stenosis, lumbar region without neurogenic anthony Office Visit 10/08/2017 Orthopedic Fabio Pena M16.12 Unilateral primary 11:15a Services Of osteoarthritis, [...] Sleep Services Of CECILIO Bradley, RN, unspecified [facility] WEB ANALYST-BC G47.10 Hypersomnia, unspecified G47.50 Parasomnia, unspecified E66.9 [...] knee Office Visit 04/12/2016 10:00a Orthopedic Norma Ramos M65.342 Trigger Services Of RPA-C finger, left C.M.A. ring finger Office Visit 03/08/2016 10:00a Orthopedic Chiki Vera5.332 Trigger Services Of M.D. finger, left C.M.A. middle finger Office Visit 12/15/2015 2:00p Orthopedic Chiki Vera5.332 Trigger Services Of M.D. finger, left C.M.A. middle finger M19.042 Primary osteoarthritis, left hand Office Visit 08/22/2015 10:20a Orthopedic Chiki Chapman5.332 Trigger Services Of RPA-C finger, left C.M.A. middle finger S63.635D Sprain of interphalangeal joint of left ring finger, subs Office Visit 06/30/2015 Orthopedic Tamica Salguero3.635D Sprain of 9:20a Services Of Clare hCao interphalangeal C.M.A. joint of left ring finger, subs M65.332 Trigger finger, left middle finger M19.042 Primary osteoarthritis, left hand Office Visit 03/24/2015 Orthopedic Tamica S63.635A Sprain of 10:30a Services Of Clare Chao interphalangeal C.M.A. joint of left ring finger, init M19.042 Primary osteoarthritis, left hand Office Visit 01/06/2013 Neurosurgery Jacob Lucio 721.3 Spondylosis Lumbar 1:00p Services Of [facility] Clare Loyola W/O Myelopathy Office Visit 11/07/2012 Orthopedic Mitul [...] 10:00 am - 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, RN, WEB ANALYST -BC at Pulmonology And Sleep Services Of [facility]11/18/2018 - Fabio Pena, MDM17.12 Unilateral primary osteoarthritis, left kneeM25.562 Pain in left kneeM17.11 Unilateral primary osteoarthritis, right kneeFollow up:Follow up: 10-14 days post op with Dr[address] Pena
[2018-12-02] MEDS ORDERED: oxyCODONE TAB* 5 MG TAB PO PRN ×2 (05:43→11:34)
[2018-12-02] MEDS ORDERED: DiMENhydriNATE IV* 50 MG/ML VIAL IV PUSH PRN (05:43)
[2018-12-02] MEDS ORDERED: Naloxone* 0.4 MG/ML 1 ML VIAL IV PRN (05:43)
[2018-12-02] MEDS ORDERED: fentaNYL* 50 MCG/ML 2 ML VIAL (100 MCG VIAL) IV PRN (05:43)
[2018-12-02] MEDS ORDERED: PROCHLORPERAZINE INJ 5 MG/ML 2 ML VIAL IV PRN (05:43)
[2018-12-02] MEDS ORDERED: HYDROmorphone INJ1* 1 MG/ML SYRINGE IV PRN (05:43)
[2018-12-02] MEDS ORDERED: Famotidine IV* 10 MG/ML 2 ML (20 mg) IV ONE (06:00)
[2018-12-02] MEDS ORDERED: Lactated Ringers 1000 ML Bag* 1,000 ML IV SCH ×2 (06:00→12:00)
[2018-12-02] MEDS ORDERED: Gabapentin CAP(*) 300 MG PO ONE (06:00)
[2018-12-02] MEDS ORDERED: Dexamethasone TAB* 4 MG PO ONE (06:00)
[2018-12-02] MEDS ORDERED: celeCOXIB CAP* 200 MG PO ONE (06:00)
[2018-12-02] MEDS ORDERED: Gabapentin CAP(*) 300 MG ONE (06:03)
[2018-12-02] MEDS ORDERED: Ondansetron ODT TAB* 4 MG ONE (06:03)
[2018-12-02] MEDS ORDERED: Dexamethasone TAB* 4 MG ONE (06:03)
[2018-12-02] MEDS ORDERED: ceFAZolin 2 GM in NS PREMIX(*) 2 GM/100 ML BAG IVPB ONE (06:04)
[2018-12-02] MEDS ORDERED: Buffered Lidocaine 1% SYRIN* 1 ML/SYRINGE INTRADERM ONE (06:04)
[2018-12-02] MEDS ORDERED: Famotidine IV* 10 MG/ML 2 ML (20 mg) ONE (06:04)
[2018-12-02] MEDS ORDERED: celeCOXIB CAP* 200 MG ONE (06:04)
[2018-12-02] MEDS ORDERED: KETAMINE HCL* 50 MG/ML 10 ML VIAL ONE (07:10)
[2018-12-02] MEDS ORDERED: fentaNYL* 50 MCG/ML 2 ML VIAL (100 MCG VIAL) ONE (07:10)
[2018-12-02] MEDS ORDERED: Midazolam* 1 MG/ML 10 ML VIAL (10 MG) ONE (07:10)
[2018-12-02] MEDS ORDERED: Bupivacaine 0.5%* 50 ML VIAL ONE (08:03)
[2018-12-02] MEDS ORDERED: Bupivacaine 0.5% SDV PF* 30ML VIAL ONE (09:27)
[2018-12-02] MEDS ORDERED: Propofol* 500 MG/50 ML BTL ONE (09:28)
[2018-12-02] MEDS ORDERED: Acetaminophen IV 1GM/100ML * 100 ML ONE (10:48)
[2018-12-02] MEDS ORDERED: HYDROmorphone INJ1* 1 MG/ML SYRINGE ONE ×2 (10:52→11:14)
[2018-12-02] MEDS ORDERED: Propofol* 10 MG/ML 20 ML BTL ONE (11:01)
[2018-12-02] MEDS ORDERED: diPHENhydraMINE IV* 50 MG/ML 1 ml VIAL (BENADRYL) IV PRN (11:23)
[2018-12-02] MEDS ORDERED: Ondansetron INJ* 2 MG/ML VIAL IV PRN (11:23)
[2018-12-02] MEDS ORDERED: Magnesium Hydroxide LIQ* 30 ML UDC PO PRN (11:23)
[2018-12-02] MEDS ORDERED: Ondansetron TAB* 4 MG PO PRN (11:23)
[2018-12-02] MEDS ORDERED: traMADol TAB* 50 MG PO PRN (11:23)
[2018-12-02] MEDS ORDERED: diPHENhydraMINE PO* 25 MG PO PRN (11:23)
[2018-12-02] MEDS ORDERED: Albuterol HFA INHALER* 8 gm MDI INH PRN (11:32)
[2018-12-02] MEDS ORDERED: Albuterol/Ipratropium NEB.SOL* Albuterol 2.5 MG/Ipratropium 0.5 MG 3 ML INH PRN (11:32)
[2018-12-02] MEDS: oxyCODONE TAB* 5 MG TAB PO PRN ×3 (12:57→22:08)
[2018-12-02] MEDS: Ketorolac INJ* 30 MG/ML 1 ML VIAL IV PUSH PRN ×2 (12:58→22:09)
[2018-12-02] MEDS: Cyclobenzaprine TAB* 10 MG PO PRN ×2 (13:51→22:09)
[2018-12-02] MEDS: Morphine TAB Extended Release (*) 30 MG TAB.ER PO SCH ×2 (13:52→22:08)
[2018-12-02] MEDS: Morphine 4 MG/ML VIAL (1 ml) 4 MG/ML VIAL IV PRN ×2 (13:53→19:58)
--- NOTE | 2018-12-02 15:09 | OP ---
CC: PCP OPERATIVE REPORT: DATE OF OPERATION: 12/02/18 DATE OF : 62 ATTENDING SURGEON: Fabio Pena MD ASSISTANTS: 1. Remy Garvey MD 2. ALAYNA Davidson 3. ALAYNA Lopez Assistants were needed for this case to help with positioning, retraction, and utilized throughout all portions of the case. ANESTHESIOLOGIST: Dr. Joya. ANESTHESIA: Spinal with localized regional block. PRE-OP DIAGNOSIS: Left knee end-stage osteoarthritis. POST-OP DIAGNOSIS: Left knee end-stage osteoarthritis. OPERATIVE PROCEDURE: Left total knee replacement. IMPLANTS USED: Fernandez Persona size 10 femur, size F stem, tibia size with a 14 mm taper, size 10 Polyethylene insert, and a size 35 mm patella. TOURNIQUET TIME: 42 minutes. COMPLICATIONS: None. ESTIMATED BLOOD LOSS: 150. INDICATIONS: Markie Mc is a 58-year-old male with severe end-stage arthritis in bilateral knees. He has elected to proceed with left total knee replacement. After extensive discussion of risks and benefits versus operative versus nonoperative treatment, he has elected to proceed with surgical treatment. He underwent preoperative medical risk optimization. He has a history of chronic pain and his pain doctor was consulted as well for pain control. The risks were discussed and included but not limited to bleeding; infection; damage to nerves, vessels, surrounding structures; wound nonhealing; persistent pain; need for surgery; scaring; stiffness; incomplete relief of symptoms; risks of anesthesia; risk of DVT; fracture; dislocation. DESCRIPTION OF PROCEDURE: The patient was greeted in the preoperative area by the attending surgeon. The correct extremity was marked, consent was confirmed. The patient underwent adductor canal block after which he was brought back to the operating room suite. He then underwent spinal anesthesia, then he was placed in a supine position on the operating room table, underwent Scott catheter insertion. The left leg was prepped and draped in a lateral post disposition. An unsterile tourniquet tourniquet was placed high on the proximal thigh. The post was then placed with the knee in hyperflexed position. The left leg was then prepped and draped in the usual sterile fashion beginning with chlorhexidine soap, scrub, and alcohol wipe, and a final prep with ChloraPrep. After appropriate surgical pause indicating site, side, procedure, administration of antibiotics; the 10-blade was used to make a midline incision over the knee. The soft tissues were were carefully dissected to expose the quadriceps tendon and patellar tendon. A parapatellar medial arthrotomy was then made with a 10 blade and a Bovie. The soft tissues were carefully dissected and the patellar was then carefully everted. The medial structures were then released. Retractors were then placed to protect the soft tissue. The anterior horns of the meniscus were released as well as some of the fat pad. The patella was everted at this point. The meniscus anteriorly and laterally were released. The ACL was transected. The dissection was begun of the ACL and PCL off of the bony subperiosteal fascia and after osteophytes were removed. Once this was done the leg was then flexed and externally rotated so that the remaining aspect of the medial meniscus was identified. This was then released carefully. Osteophytes were found medically which were also removed. Once the soft tissue exposure was satisfactory, the external tibial guide was then placed and then secured taking in line the medial and lateral malleoli as well as the crest of the tibia. Once the appropriate position was identified, the sagittal saw was used to do the tibial cut. The tibial bone was removed in its entirety. The bone quality was quite hard medially. Attention was directed to the femur, the step drill was then used to drill into the intramedullary canal, after which the distal femoral cut guide was then assembled to offer 6 degrees of varus, +1 on the block. After this was secured and checked the distal femoral cut was then done. The knee was then placed in extension and the extension gap was measured using a size 10 block, somewhat tight medially at this point, but was otherwise acceptable. The knee was then flexed again, first the sizing guide was placed at size 10. It was found to be the appropriate fit with no evidence of notching. The external rotation pins were then drilled and the box cut guide was placed, again this is a size 10. First the chamfer cuts were complete, any excess osteophytes were removed. At this point, the trial femur was then placed, was found to fit appropriately, it was secured, no evidence of notching. The box-cut guide was then placed. The saw was then used to complete the cuts, this was found to be a well-fitting femur. Attention was then directed to the tibia. Calipers were placed in each compartment to make sure that there was removal of the entirety of any bone that was left as well as any meniscus fragments. Hemostasis was obtained carefully at all times, maintained at all times through the electrocautery device. A trial femur was then also placed. The knee was taken to full extension. It was found to be a little bit tight medially, but otherwise and then therefore gentle release of the MCL was done. This allowed it to fit more appropriately and it was less tight medially. The knee was taken through full range of motion. With the knee in extension, the patella was then cut using a cutting guide. A size 35 was found to have an appropriate fit and the patella was prepared. The knee was then flexed and the trial poly was removed. The tibia was then prepared in the usual fashion with a drill and the punch. Hemostasis was obtained. The wounds were copiously irrigated and the Esmarch was used to exsanguinate the limb and the tourniquet was inflated. The knee was thoroughly lavaged to remove any loose debris and create a dry field for cementing. Final implants were checked and opened. After cement mixing, we began with the patellar implant was then secured and held with a patellar clamp. The tibia was then impacted into position and secured and then cement was placed and impacted into position. Then the trial poly was placed. The femur was then impacted into position after cement was placed. The knee was then taken to full extension with axial load and then flexed again to remove and obvious extruding cement. It was extended and Flexed again and extended to allow for removal as much of the excess cement that is possible. The knee was then placed in axial load in full extension for the cement to further harden. After this was done, excess cement was removed from the patella as well as from the femoral and tibial components. The knee was taken through full range of motion without good tracking of the patella. All excess cement was removed carefully. The final poly was then chosen and placed with excellent purchase. Knee was then reduced and taken through full range of motion. Flexion to 140 degrees and full extension. The wounds were copiously irrigated. The capsule was infiltrated with 0.5% Marcaine. The wounds were closed and the wounds were irrigated again. The arthrotomy was then closed with #1 Vicryl in an interrupted fashion. The fat/paratenon was closed with 0 Vicryl, the subcutaneous tissues were closed with 3-0 Monocryl, and the skin with mohamud. The wound was injected superficially with 0.5% Marcaine. Sterile dressings and a Cryo/Cuff were placed. He was awoken from anesthesia and then transferred to the PACU in stable condition. POSTOPERATIVE PLAN: He will be admitted for monitoring. Pain management will be as per his recommendations from his Pain Clinic doctor. He will be on aspirin for DVT prophylaxis due to no previous personal or family history. He will receive 24 hours postoperative antibiotics and start physical therapy as soon as possible. We will see him back in the office after discharge in approximately 2 weeks with repeat x-ray and staple removal. We will continue to monitor. [id number]/[facility] #: [id number] CAROL
--- NOTE | 2018-12-02 17:12 | PN ---
Progress Note - Progress Note Date of Service: 12/02/18 Note: Pt seen at bedside POD 0 SP LTK. He feels well, pain is well controlled. Denies CP, SOB, dizziness, nausea. Dressing is CDI, thigh is soft, DF/PF intact, DP2+, sensation intact to light touch distally. He will be on aspirin 325 mg po QD for DVT prophylaxis. He sees Dr Ferrer pain management, recommendation is continue home meds and allow extra oxycodone for acute post op pain. At discharge he will go home on regular home narcotics. While in house I have also ordered toradol and cyclobenzapine to assist with pain control. Due to large narcotic dosages he will be on continuos pulseox monitoring.
[2018-12-02] MEDS: ceFAZolin 1 GM ADVAN(*) 1 GM in NS 0.9% 50 ML* 50 ML IVPB SCH (17:40)
[2018-12-02] MEDS: Mometasone/Formoter 200/5 MDI INH SCH (19:36)
--- NOTE | 2018-12-02 20:14 | CONS ---
CC: Dr. Pena* CONSULTATION REPORT: DATE OF CONSULT: 12/02/18 PROVIDER: Yadi Jovel NP ATTENDING PHYSICIAN: Dr. Pena. CONSULTING PHYSICIAN: Dr. Sheri Banda (dictated by Yadi Jovel NP). REASON FOR CONSULT: Hypertension, obstructive sleep apnea, and chronic pain. HISTORY OF PRESENT ILLNESS: Mr. Mc is a 58-year-old male with a past medical history significant for hypertension, asthma, hyperlipidemia, obstructive sleep apnea, and chronic pain who presented to [facility] for an elective left total knee arthroplasty with Dr. Pena. For complete details, please see dictated H and P from Maryjo Dodd RPA. In brief, the patient had ongoing pain, failed conservative measures, and opted for an elective left total knee arthroplasty with Dr. Pena. In the immediate postoperative period , the patient does complain of mild left knee pain. Due to his history of hypertension, asthma, and hyperlipidemia as well as obstructive sleep apnea and chronic pain, we were asked to see and evaluate the patient to assist and co- management of his chronic medical conditions. PAST MEDICAL HISTORY: Significant for: 1. Degenerative disk disease of the spine. 2. Hypertension. 3. Asthma. 4. Hyperlipidemia. 5. Depression. 6. Chronic pain. 7. Diverticular disease. PAST SURGICAL HISTORY: 1. Yonny in his right cristina. 2. Left leg surgery. 3. Left hand surgery after a fracture. 4. Right knee with a meniscus repair. 5. Right shoulder rotator cuff repair. 6. History of back surgery. HOME MEDICATIONS: Include: 1. Duloxetine 30 mg p.o. daily. 2. Percocet 10/325 four times daily. 3. OxyContin 30 mg 3 times a day. 4. Albuterol inhaler as needed. 5. Dulera 100/5 two puffs twice daily. 6. He uses Breo Ellipta 200/25 inhaled 2 puffs twice daily. 7. Lisinopril 10 mg p.o. daily. 8. Flomax 0.4 mg 2 times weekly. 9. Amlodipine 5 mg p.o. daily. 10. Cialis 20 mg as needed. FAMILY HISTORY: No reported history of coronary artery disease. Father with diabetes and mother with unknown type of cancer. SOCIAL HISTORY: The patient reports he quit smoking approximately 30 years ago. Prior to that, he smoked for approximately 20 years, a pack a day. He denies any alcohol or illicit drug use. He is single. Surrogate decision maker in the event he is unable to make his own decisions is Shiloh or his brother Ridge. He is a full code. REVIEW OF SYSTEMS: He denies any fevers, unintended weight loss, chest pain, edema, cough, hemoptysis, or shortness of breath. No nausea, vomiting, or diarrhea, abdominal pain, gross hematuria, or dysuria. He denies any focal weakness or sensory loss. Denies any visual complaints, dysphagia, arthralgias , myalgias, rashes, lesions, or open sores. Denies any psychosis or anxiety. PHYSICAL EXAM: General: At this time, Mr. cM is a 58-year-old male. He is resting comfortably in his hospital room bed. Vital Signs: Temperature was 98.3, heart rate is 79, respirations 18, O2 saturation 97%, blood pressure 143/ 64. HEENT: Head is atraumatic, normocephalic. Eyes: EOMs are intact. Sclerae anicteric and not pale. Oral mucosa appeared to be moist. Neck: Supple. Lungs: Clear to auscultation bilaterally. No wheezes, rales or rhonchi. Cardiac: S1, S2, regular rate and rhythm. No murmurs, rubs, or gallops. Abdomen: Soft and nontender. Bowel sounds are present x4. Musculoskeletal: He is able to move all 4 extremities. There is no clubbing or cyanosis. Pedal pulses are +2 bilaterally. Skin: He does have a dressing that is dry and intact to his left knee. Neurologic: He is awake, alert and oriented x3. Speech is clear. Thought process is intact. There is no gross focal deficits. DIAGNOSTIC STUDIES/LAB DATA: Blood work from 11/19/18, WBCs are 10.7, RBCs 4.79 , hemoglobin 13.5, hematocrit was 41, platelet count was 234. INR is 0.91. Sodium 137, potassium 4.5, chloride 107, carbon dioxide is 23, anion gap was 7, BUN was 20, creatinine 0.79, glucose was 92, calcium 10.5. Alkaline phosphatase was 77. TSH was 0.36. Urine pH was 5.0, specific gravity is 1.032, urine protein was 1+, ketones were trace. Urine blood, nitrites, bilirubin, urobilinogen, leukocyte esterase and wbc's were all absent, rbc's were 3+, squamous epithelial cells were present, calcium oxalate crystals were present, bacteria was absent. Glucose was negative and ascorbic acid was negative. IMPRESSION AND PLAN: Mr. Mc is a 58-year-old male with a past medical history significant for hypertension; obstructive sleep apnea, does not use CPAP machine; hypertension; hyperlipidemia; chronic pain; depression; and asthma who presented for an elective left total knee arthroplasty with Dr. Pena. In the immediate postoperative period, the patient has no complaints. Our recommendations are as follows: 1. Status post left total knee arthroplasty: Management per Orthopedics. PT/ OT per Orthopedics. Bowel regimen per Orthopedics. DVT prophylaxis per Orthopedics. 2. Hypertension: I would continue his amlodipine and hold his lisinopril at this time. 3. Asthma: He can continue on Dulera 100/5 two puffs twice daily and albuterol as needed for shortness of breath. 4. Hyperlipidemia: The patient is not currently on any medications. 5. Depression: Continue his Cymbalta. 6. Chronic pain: I would continue his OxyContin and oxycodone as previously prescribed with additional pain medication dosing to treat his acute pain from his left knee surgery. 7. FEN: He can have regular diet. 8. Code status: He is a full code. 9. DVT prophylaxis: As per Orthopedics. TIME SPENT: Time spent on this consultation was approximately 45 minutes, greater than half that time was spent at the bedside reviewing events leading thus far to his hospitalization, performing physical exam, and reviewing my plan of care. I have discussed this with my attending Dr. Sheri Banda, she is in agreement with my plan. YADI JOVEL, TOUCHER UP [id number]/[facility] #: [id number] CAROL
[2018-12-02] MEDS: Acetaminophen TAB* 325 MG PO SCH (22:07)
[2018-12-02] MEDS: Docusate CAP* 100 MG PO SCH (22:07)
[2018-12-02] MEDS: Magnesium Hydroxide LIQ* 30 ML UDC PO SCH (22:11)
[2018-12-03] MEDS: ceFAZolin 1 GM ADVAN(*) 1 GM in NS 0.9% 50 ML* 50 ML IVPB SCH ×2 (00:28→08:16)
[2018-12-03] MEDS: Morphine 4 MG/ML VIAL (1 ml) 4 MG/ML VIAL IV PRN (00:32)
[2018-12-03] MEDS: Cyclobenzaprine TAB* 10 MG PO PRN ×3 (05:51→22:10)
[2018-12-03] MEDS: Morphine TAB Extended Release (*) 30 MG TAB.ER PO SCH ×3 (05:52→22:10)
[2018-12-03] MEDS: oxyCODONE TAB* 5 MG TAB PO PRN ×4 (05:52→20:28)
[2018-12-03] MEDS: Ketorolac INJ* 30 MG/ML 1 ML VIAL IV PUSH PRN (05:53)
[2018-12-03] MEDS: oxyCODONE/Acetamin 5/325 MG* TAB PO PRN ×2 (05:53→20:27)
[2018-12-03] MEDS: Acetaminophen TAB* 325 MG PO SCH ×3 (06:00→20:27)
[2018-12-03 06:54] LABS: Hematocrit 35 % (42-52); Hemoglobin 11.9 g/dL (14.0-18.0); Mean Platelet Volume 6.4 fL (7.4-10.4); Platelet Count 385 10^3/uL (150-450)
[2018-12-03 07:03] LABS: BUN/Creatinine Ratio 23.5 (8-20); Calcium 8.8 mg/dL (8.6-10.3); EGFR African American 118.8 (>60); EGFR Non-African American 98.2 (>60); Potassium 4.3 mmol/L (3.5-5.0)
[2018-12-03] MEDS: Magnesium Hydroxide LIQ* 30 ML UDC PO SCH ×2 (08:17→20:28)
[2018-12-03] MEDS: amLODIPine TAB* 5 MG PO SCH (08:17)
[2018-12-03] MEDS: DULoxetine DR CAP* 30 MG CAP.DR PO SCH (08:17)
[2018-12-03] MEDS: Docusate CAP* 100 MG PO SCH ×2 (08:18→20:28)
[2018-12-03] MEDS: Mometasone/Formoter 200/5 MDI INH SCH ×2 (08:18→19:53)
[2018-12-03] MEDS: Tamsulosin CAP* 0.4 MG PO SCH (08:18)
[2018-12-03] MEDS ORDERED: Fluticasone/Vilanterol MDI(NF) 100/25 MDI INH SCH (09:00)
[2018-12-03] MEDS ORDERED: celeCOXIB CAP* 200 MG PO SCH (09:00)
[2018-12-03] MEDS ORDERED: Aspirin TAB* 325 MG PO SCH (09:00)
--- NOTE | 2018-12-03 10:43 | PN ---
Progress Note - Progress Note Date of Service: 12/03/18 Note: Pt doing ok. POD#1 from L TKA. Pain controlled. Working with PT. Temp Pulse Resp BP Pulse Ox 98.0 F 71 20 137/64 94 12/03/18 07:16 12/03/18 07:16 12/03/18 10:00 12/03/18 07:16 12/03/18 10:00 NAD. AAOx3. dressing in place. calf is soft nontender. SILT grossly distally. brisk cap refill. ROM 2-90 degrees Laboratory Results - last 24 hr 12/03/18 12/03/18 06:33 06:33 Hgb 11.9 L Hct 35 L Plt Count 385 MPV 6.4 L Sodium 137 Potassium 4.3 Chloride 105 Carbon Dioxide 28 Anion Gap 4 BUN 19 Creatinine 0.81 Est GFR ( Amer) 118.8 Est GFR (Non-Af Amer) 98.2 BUN/Creatinine Ratio 23.5 H Glucose 131 H Calcium 8.8 A/P 58 yo M s/p L TKA WBAT analgesia lovenox while in house ancef for 24 hours dispo when stable
[2018-12-03] MEDS ORDERED: Enoxaparin(*) 40 MG/0.4 ML SYR SUBCUT SCH (13:00)
--- NOTE | 2018-12-03 15:15 | PN ---
Subjective Date of Service: 12/03/18 Interval History: Lying in bed on assessment. Patient reports he is resting as he just finished with physical therapy. Reports pain is well controlled on current medications. Reports kunz was removed this morning and he is voiding without difficultly. Reports he has a BM yesterday after surgery. Denies numbness/tingling, calf pain , nausea, vomiting, diarrhea, cp, sob. Objective Active Medications: Acetaminophen (Tylenol Tab*) 975 mg PO Q8H [facility] Last Admin: 12/03/18 11:49 Dose: 975 mg Albuterol (Ventolin Hfa Inhaler*) 2 puff INH Q4H PRN PRN Reason: SOB/WHEEZING Albuterol/Ipratropium (Duoneb (Albuterol 2.5 Mg/Ipratropium 0.5 Mg)) 1 neb INH Q4H PRN PRN Reason: SOB/WHEEZING Amlodipine Bes[facility] ([facility]*) [facility] [place] Last Admin: 12/03/18 08:17 Dose: 5 mg Cyclobenzaprine HCl (Flexeril Tab*) 5 mg PO TID PRN PRN Reason: SPASMS Last Admin: 12/03/18 14:53 Dose: 5 mg Diphenhydramine HCl (Benadryl Iv*) 25 mg IV Q6H PRN PRN Reason: itching Diphenhydramine HCl (Benadryl Po*) 25 mg PO Q6H PRN PRN Reason: itching Docusate Sodium (Colace Cap*) 100 mg PO BID [facility] Last Admin: 12/03/18 08:18 Dose: 100 mg Duloxetine HCl (Cymbalta Cap*) [facility] [place] Last Admin: 12/03/18 08:17 Dose: 30 mg Enoxaparin Sodium (Lovenox(*)) 40 mg SUBCUT Q24H [facility] Lactated Ringer's (Lactated Ringers 1000 Ml Bag*) 1,000 mls @ 100 mls/hr IV PER RATE [facility] Last Admin: 12/02/18 22:17 Dose: 100 mls/hr Ketorolac Tromethamine (Toradol Inj*) 30 mg IV PUSH Q6H PRN PRN Reason: PAIN - UNRELIEVED Last Admin: 12/03/18 05:53 Dose: 30 mg Magnesium Hydroxide (Milk Of Magnesia Liq*) 30 ml PO BID [facility] Last Admin: 12/03/18 08:17 Dose: 30 ml Magnesium Hydroxide (Milk Of Magnesia Liq*) 30 ml PO Q6H PRN PRN Reason: constipation Mometasone Furoate/Formoterol Fumar (Dulera 200/5 Mdi*) 2 puff INH BID [facility] Last Admin: 12/03/18 08:18 Dose: 2 puff Morphine Sulfate (Morphine 4 Mg/Ml Vial (1 Ml)) 2 mg IV Q2H PRN PRN Reason: PAIN - BREAKTHROUGH Last Admin: 12/03/18 00:32 Dose: 2 mg Morphine Sulfate (Ms Contin(*)) 30 mg PO Q8HR [facility] Last Admin: 12/03/18 14:49 Dose: 30 mg Ondansetron HCl (Zofran Inj*) 4 mg IV Q6H PRN PRN Reason: nausea Ondansetron HCl (Zofran Tab*) 4 mg PO Q6H PRN PRN Reason: NAUSEA Oxycodone HCl (Roxycodone Tab*) 10 mg PO Q4H PRN PRN Reason: PAIN - SEVERE Last Admin: 12/03/18 11:50 Dose: 10 mg Oxycodone HCl (Roxycodone Tab*) 5 mg PO Q6H PRN PRN Reason: PAIN Last Admin: 12/03/18 05:52 Dose: 5 mg Oxycodone HCl (Roxycodone Tab*) 5 mg PO Q4H PRN PRN Reason: PAIN - MODERATE Oxycodone/Acetaminophen (Percocet 5/325 Tab*) 1 tab PO Q6H PRN PRN Reason: PAIN Last Admin: 12/03/18 05:53 Dose: 1 tab Tamsulosin HCl (Flomax Cap*) 0.4 mg PO QAM [facility] Last Admin: 12/03/18 08:18 Dose: 0.4 mg Vital Signs - 8 hr 12/03/18 12/03/18 12/03/18 07:16 07:22 07:23 Temperature 98.0 F Pulse Rate 71 Respiratory 16 18 18 Rate Blood Pressure 137/64 (mmHg) O2 Sat by Pulse 97 95 Oximetry 12/03/18 12/03/18 12/03/18 08:00 10:00 11:22 Temperature 98.6 F Pulse Rate 67 Respiratory 20 20 16 Rate Blood Pressure 116/57 (mmHg) O2 Sat by Pulse 95 94 99 Oximetry 12/03/18 12/03/18 12/03/18 11:50 11:52 14:49 Temperature Pulse Rate Respiratory 20 20 18 Rate Blood Pressure (mmHg) O2 Sat by Pulse 96 Oximetry 12/03/18 12/03/18 14:51 14:53 Temperature Pulse Rate Respiratory 18 18 Rate Blood Pressure (mmHg) O2 Sat by Pulse Oximetry Oxygen Devices in Use Now: None Appearance: Comfortable, NAD Eyes: No Scleral Icterus Ears/Nose/Mouth/Throat: Clear Oropharnyx, Mucous Membranes Moist Neck: NL Appearance and Movements; NL JVP Respiratory: Symmetrical Chest Expansion and Respiratory Effort, Clear to Auscultation Cardiovascular: NL Sounds; No Murmurs; No JVD, RRR, No Edema Abdominal: NL Sounds; No Tenderness; No Distention Lymphatic: No Cervical Adenopathy Extremities: No Clubbing, Cyanosis Skin: - - Dressing to left knee CDI Neurological: Alert and Oriented x 3, NL Muscle Strength and Tone Nutrition: Taking PO's Result Diagrams: 12/03/18 06:33 12/03/18 06:33 Additional Lab and Data: Laboratory Results - last 24 hr 12/03/18 12/03/18 06:33 06:33 Hgb 11.9 L Hct 35 L Plt Count 385 MPV 6.4 L Sodium 137 Potassium 4.3 Chloride 105 Carbon Dioxide 28 Anion Gap 4 BUN 19 Creatinine 0.81 Est GFR ( Amer) 118.8 Est GFR (Non-Af Amer) 98.2 BUN/Creatinine Ratio 23.5 H Glucose 131 H Calcium 8.8 Microbiology and Other Data: . Assess/Plan/Problems-Billing Assessment: 58 yr old with pmh of DDD of spine, chronic pain, htn, asthma, htn, depression; who is status post elective total left knee replacement - Patient Problems (1) Status post total left knee replacement Comment: - POD 1 - Management per ortho - Pain medications, bowel regime, and DVT proph ordered by ortho team (2) Hypertension Comment: - Normotensive - Hold lisinorpil - Cont home amlodipine - Patient can resume both home medicatoins of lisinopril and amlodipine at discharge (3) Chronic pain Comment: - I agree with continuing home Morphine PO with the addition of Oxycodone for break through pain. - Monitor for over sedation (4) Asthma Comment: - Cont home inhalers (5) Hyperlipidemia Comment: - Not currently on medication. - Follow up with PCP after discharge (6) Depression Comment: - Cont Cymbalta (7) DVT prophylaxis Comment: - Lovenox per ortho Status and Disposition: Thank you for allowing us to participate in the care of this patient. We will follow along with you during his hospital stay Attending: Kingsley Mccurdy
[2018-12-03] MEDS: Enoxaparin(*) 40 MG/0.4 ML SYR SUBCUT SCH (16:26)
[2018-12-04] MEDS: oxyCODONE TAB* 5 MG TAB PO PRN ×2 (02:35→08:26)
[2018-12-04] MEDS: oxyCODONE/Acetamin 5/325 MG* TAB PO PRN ×2 (02:35→08:26)
[2018-12-04] MEDS: Acetaminophen TAB* 325 MG PO SCH ×3 (04:01→10:02)
[2018-12-04 05:15] LABS: Hematocrit 39 % (42-52); Hemoglobin 12.6 g/dL (14.0-18.0)
[2018-12-04] MEDS: Morphine TAB Extended Release (*) 30 MG TAB.ER PO SCH ×2 (05:57→13:14)
[2018-12-04 06:03] LABS: Mean Platelet Volume 6.9 fL (7.4-10.4); Platelet Count 348 10^3/uL (150-450)
[2018-12-04] MEDS: Tamsulosin CAP* 0.4 MG PO SCH (08:26)
[2018-12-04] MEDS: amLODIPine TAB* 5 MG PO SCH (08:26)
[2018-12-04] MEDS: Docusate CAP* 100 MG PO SCH (08:26)
[2018-12-04] MEDS: DULoxetine DR CAP* 30 MG CAP.DR PO SCH (08:26)
[2018-12-04] MEDS: Magnesium Hydroxide LIQ* 30 ML UDC PO SCH (08:27)
[2018-12-04] MEDS: Mometasone/Formoter 200/5 MDI INH SCH (08:28)
[2018-12-04] MEDS: Cyclobenzaprine TAB* 10 MG PO PRN (09:50)
[2018-12-04 11:42] VITALS: BP 121/82
--- NOTE | 2018-12-04 11:55 | PN ---
Progress Note - Progress Note Date of Service: 12/04/18 SOAP: Subjective: OOB to chair, pain well controlled, no complaints Objective: Vital Signs Temp Pulse Resp BP Pulse Ox 99.2 F 76 18 121/82 98 12/04/18 11:41 12/04/18 11:41 12/04/18 11:41 12/04/18 11:41 12/04/18 11:41 Laboratory Last Values Hgb 12.6 g/dL (14.0-18.0) L 12/04/18 04:53 Hct 39 % (42-52) L 12/04/18 04:53 Plt Count 348 10^3/uL (150-450) 12/04/18 04:53 MPV 6.9 fL (7.4-10.4) L 12/04/18 04:53 Sodium 137 mmol/L (135-145) 12/03/18 06:33 Potassium 4.3 mmol/L (3.5-5.0) 12/03/18 06:33 Chloride 105 mmol/L (101-111) 12/03/18 06:33 Carbon Dioxide 28 mmol/L (22-32) 12/03/18 06:33 Anion Gap 4 mmol/L (2-11) 12/03/18 06:33 BUN 19 mg/dL (6-24) 12/03/18 06:33 Creatinine 0.81 mg/dL (0.67-1.17) 12/03/18 06:33 Est GFR ( Amer) 118.8 (>60) 12/03/18 06:33 Est GFR (Non-Af Amer) 98.2 (>60) 12/03/18 06:33 BUN/Creatinine Ratio 23.5 (8-20) H 12/03/18 06:33 Glucose 131 mg/dL (70-100) H 12/03/18 06:33 Calcium 8.8 mg/dL (8.6-10.3) 12/03/18 06:33 incision: c/d/i; dressing changed PE:NVI Assessment: s/p left TKA; POD#2 Plan: 1) [id number] 2) Lovenox in house, home on ASA 325mg QD for DVT prophylaxis 3) Home today; follow-up with Jean in 2 weeks
--- NOTE | 2018-12-04 12:26 | DS ---
DISCHARGE SUMMARY: DATE OF ADMISSION: 12/02/18 DATE OF DISCHARGE: 12/04/18 SURGEON: Fabio Pena MD * (DICTATED BY ALAYNA SANABRIA) PRINCIPAL DIAGNOSIS: End-stage osteoarthritis of the left knee. DISCHARGE DIAGNOSIS: End-stage osteoarthritis of the left knee. DISCHARGE DISPOSITION: Discharged to home in stable condition. HISTORY OF PRESENT ILLNESS: Mr. Mc is a 58-year-old gentleman with end- stage osteoarthritis of his left knee. He failed conservative treatment and elected to proceed with a left total knee arthroplasty. HOSPITAL COURSE: Mr. Mc was admitted electively to the hospital on and underwent a left total knee arthroplasty. He tolerated the procedure well. Postoperatively, he was placed on Lovenox for DVT prophylaxis. He made daily improvements with physical therapy. On postop day 1, his H and H was 11 and 35; on postoperative day 2, 12 and 39. At the time of discharge, he was afebrile, his vital signs were stable and he was ambulating well with the aid of a walker. DISCHARGE MEDICATIONS: 1. Percocet 5/325 1 to 2 tablets every 4 to 6 hours as needed for pain. 2. Colace 100 mg 2 to 3 daily as needed for constipation. 3. Aspirin 325 daily for 4 weeks. 4. Ventolin inhaler as needed. 5. Norvasc 5 mg daily. 6. Duloxetine 30 mg a day. 7. Dulera 2 puffs daily. 8. Flomax 0.4 mg daily. PHYSICAL EXAM UPON DISCHARGE: The wound was clean and dry. No signs of infection. He was able to dorsiflex and plantarflex and has a 2+ dorsalis pedis pulse and intact sensation. He was ambulating well with the aid of a walker. DISCHARGE INSTRUCTIONS: He was discharged home. He was given Percocet for pain , aspirin daily for DVT prophylaxis, Colace as needed for constipation. The dressing was changed prior to discharge. He can shower starting Saturday, letting soap and water run over the incision, pat the area dry. No pools, baths , or hot tubs and will see Dr. Pena back in 2 weeks. ALAYNA SANABRIA [id number]/[facility] #: [id number] CAROL
[2018-12-04] MEDS: Enoxaparin(*) 40 MG/0.4 ML SYR SUBCUT SCH (13:25)
== END 2018-12-04 13:35 | disposition home health service (06) | DRG 470 ==
LOC: AA 05:29 → SSU 11:23
PROVIDERS: ADMIT Orthopaedic Surgery; ATTEND Orthopaedic Surgery
PROC: 0SRD0J9 Replacement of Left Knee Joint with Synthetic Substitute, Cemented, Open Approach (ICD-10-PCS; principal; 2018-12-02 07:30)
DX: M17.0 Bilateral primary osteoarthritis of knee (principal); M51.36 Other intervertebral disc degeneration, lumbar region; I10 Essential (primary) hypertension; J45.909 Unspecified asthma, uncomplicated; E78.5 Hyperlipidemia, unspecified; F32.9 Major depressive disorder, single episode, unspecified; K57.90 Diverticulosis of intestine, part unspecified, without perforation or abscess without bleeding; M48.00 Spinal stenosis, site unspecified; G47.33 Obstructive sleep apnea (adult) (pediatric); G47.37 Central sleep apnea in conditions classified elsewhere; M47.817 Spondylosis without myelopathy or radiculopathy, lumbosacral region; M54.16 Radiculopathy, lumbar region; M19.019 Primary osteoarthritis, unspecified shoulder; E66.9 Obesity, unspecified; G89.4 Chronic pain syndrome; M25.762 Osteophyte, left knee; Z80.9 Family history of malignant neoplasm, unspecified; Z87.891 Personal history of nicotine dependence; Z68.36 Body mass index [BMI] 36.0-36.9, adult; Z72.89 Other problems related to lifestyle; Z81.8 Family history of other mental and behavioral disorders
CPT/HCPCS: 36415; 80048; 85014; 85018; 85049; 94640; A9270-GY; G8978-GP-CL; G8979-GP-CI; J0690; J1170; J1650; J1885; J2250; J2270; J2704; J3010; J3490; J8540

== ENCOUNTER 2019-08-05 05:31 | Inpatient (IN) | payer MEDICARE, MEDICAID ==
[~2019-08-05 05:31] MED LIST changes: -Ondansetron TAB* 4 MG PO ONE; -Tranexamic Acid 1,000 MG in NS 0.9% 50 ML* (outpatient use) IV SCH
[2019-08-05] MEDS ORDERED: Lactated Ringers 1000 ML Bag* 1,000 ML IV SCH (06:00)
[2019-08-05] MEDS ORDERED: ceFAZolin 1 GM ADVAN(*) 1 GM ADDV.VIAL IVPB ONE (06:03)
[2019-08-05] MEDS ORDERED: Buffered Lidocaine 1% SYRIN* 1 ML/SYRINGE INTRADERM ONE (06:03)
[2019-08-05] MEDS ORDERED: ceFAZolin 2 GM in NS PREMIX(*) 2 GM/100 ML BAG IVPB ONE (06:04)
[2019-08-05] MEDS ORDERED: Midazolam* 1 MG/ML 2 ML VIAL (2 MG) ONE (07:05)
[2019-08-05] MEDS ORDERED: fentaNYL* 50 MCG/ML 2 ML VIAL (100 MCG VIAL) ONE ×3 (07:05→09:28)
[2019-08-05] MEDS ORDERED: Bupivacaine 0.5% SDV PF* 30ML VIAL ONE (07:19)
[2019-08-05] MEDS ORDERED: Rocuronium* 10 MG/ML VIAL ONE (07:44)
[2019-08-05] MEDS ORDERED: Vancomycin(*) 1,000 MG VIAL ONE (07:53)
[2019-08-05] MEDS ORDERED: EPHEDrine (Pressors)* 50 MG/ML VIAL ONE (08:05)
[2019-08-05] MEDS ORDERED: Succinylcholine* 20 MG/ML 10 ML VIAL ONE (08:05)
[2019-08-05] MEDS ORDERED: Dexamethasone IV* 4 MG/ML 1 ML (4 MG) ONE (08:05)
[2019-08-05] MEDS ORDERED: Propofol* 10 MG/ML 20 ML BTL ONE (08:05)
[2019-08-05] MEDS ORDERED: Phenylephrine 40 MCG/ML SYRINGE ONE (08:05)
[2019-08-05] MEDS ORDERED: Lidocaine 2% PF * 5 ML VIAL ONE (08:05)
[2019-08-05] MEDS ORDERED: Sugammadex * 200 MG/2 ML VIAL IV PUSH ONE (10:23)
[2019-08-05] MEDS ORDERED: traZODone TAB* 50 MG TAB PO PRN (10:55)
[2019-08-05] MEDS ORDERED: Magnesium Hydroxide LIQ* 30 ML UDC PO PRN (10:55)
[2019-08-05] MEDS ORDERED: Ondansetron INJ* 2 MG/ML VIAL IV PRN (10:55)
[2019-08-05] MEDS ORDERED: diPHENhydraMINE IV* 50 MG/ML 1 ml VIAL (BENADRYL) IV PRN (10:55)
[2019-08-05] MEDS ORDERED: Polyethylene Glycol 3350* 17 GM PACKET PO PRN (10:55)
[2019-08-05] MEDS ORDERED: diPHENhydraMINE PO* 25 MG PO PRN (10:55)
[2019-08-05] MEDS ORDERED: Ondansetron ODT TAB* 4 MG PO PRN (10:55)
[2019-08-05] MEDS ORDERED: Albuterol HFA INHALER* 8 gm MDI INH PRN (11:05)
[2019-08-05] MEDS ORDERED: oxyCODONE/Acetamin 10/325(NF) TAB PO PRN (11:05)
[2019-08-05] MEDS ORDERED: oxyCODONE TAB* 5 MG TAB PO PRN (11:11)
[2019-08-05] MEDS ORDERED: Naloxone* 0.4 MG/ML 1 ML VIAL IV PRN (11:11)
[2019-08-05] MEDS ORDERED: HYDROmorphone INJ1* 1 MG/ML SYRINGE ONE (11:27)
[2019-08-05] MEDS: HYDROmorphone INJ1* 1 MG/ML SYRINGE IV PRN ×2 (11:28→11:38)
[2019-08-05] MEDS: Lactated Ringers 1000 ML Bag* 1,000 ML IV SCH (12:15)
[2019-08-05] MEDS: Ketorolac INJ* 30 MG/ML 1 ML VIAL IV PUSH PRN ×2 (12:57→21:11)
[2019-08-05] MEDS: oxyCODONE TAB* 5 MG TAB PO PRN ×2 (12:57→18:28)
[2019-08-05] MEDS ORDERED: Acetaminophen TAB* 325 MG PO SCH (14:00)
[2019-08-05] MEDS: oxyCODONE SR TAB(*) 20 MG TAB.SR PO SCH ×2 (14:46→22:22)
[2019-08-05] MEDS: oxyCODONE SR TAB(*) 10 MG TAB.SR PO SCH ×2 (14:47→22:23)
[2019-08-05] MEDS: oxyCODONE/Acetamin 5/325 MG* TAB PO SCH ×2 (15:44→22:22)
[2019-08-05] MEDS: oxyCODONE TAB* 5 MG TAB PO SCH ×2 (15:45→22:23)
[2019-08-05] MEDS: ceFAZolin 1 GM ADVAN(*) 1 GM in NS 0.9% 50 ML* 50 ML IVPB SCH (15:46)
[2019-08-05] MEDS: Mometasone/Formoter 200/5 MDI INH SCH (19:35)
[2019-08-05] MEDS: Docusate CAP* 100 MG PO SCH (21:13)
--- NOTE | 2019-08-06 00:30 | OP ---
DATE OF OPERATION: 08/05/19 - ROOM #341 DATE OF : 62 SURGEON: Fernie Mckeon MD BUZZLE BUFFER: ALAYNA Holden. A physician optical assistant was required for the length of the procedure for assistance with patient positioning, retraction, instrumentation, and closure. ANESTHESIOLOGIST: Dr. Jw Tolentino. ANESTHESIA: General anesthesia, femoral nerve block, regional anesthesia. PRE-OP DIAGNOSES: 1. Chronic lateral patella dislocation, left knee. 2. Chronic quadriceps tendon re-rupture, left. 3. Status post prior left total knee arthroplasty, 12/02/18, with subsequent quadriceps tendon rupture and open quadriceps tendon repair done on 02/04/19, both by another surgeon. POST-OP DIAGNOSES: 1. Chronic lateral patella dislocation, left knee. 2. Chronic quadriceps tendon re-rupture, left. 3. Status post prior left total knee arthroplasty, 12/02/18, with subsequent quadriceps tendon rupture and open quadriceps tendon repair done on 02/04/19, both by another surgeon. OPERATIVE PROCEDURE: 1. Left knee open quadriceps tendon repair with hznb-ck-tcyf suture repair and Regeneten biologic patch. 2. Left knee open medial imbrication, medial retinaculum and vastus medialis. 3. Left knee open lateral retinacular release. INDICATIONS: The patient has a long and complicated history regarding the left knee. See my history and physical note for full history. He presented to me recently with 3 to 4 months of a laterally dislocated patella along with a dysfunctional and likely reruptured quadriceps tendon. The patient had a negative, nonintact knee extension strength and straight leg raise even with the patella centralized on exam. The patient has by imaging and exam a grossly dislocated lateral patella. The patient has been made aware both in clinic and in preoperative holding of the significant nature of his injuries. Given the chronic nature of the lateral dislocation of the patella, the chronic nature of the quadriceps tendon rupture, and the rupture for the second time along with the presence of the total knee arthroplasty, the patient is at a very high risk of complication. He has a high risk for retear, high risk of infection, high risk of wound difficulties and problems. I told him that he could potentially even need an amputation or have a nonfunctional left knee in the future. He understood the risks. Discussed with the patient all the standard risks and potential complications of open surgery, especially those involving knee arthroplasty. ANTIBIOTICS: Ancef 3 g IV. IV FLUIDS: See Anesthesia note. [id number] TIME: 135 minutes. TOURNIQUET TIME: 125 minutes total at 300 mmHg. The tourniquet was dropped at least 5 minutes during the procedure, so we extended 5 minutes beyond the 120 minutes. SPECIMENS: Culture swabs, aerobic and anaerobic were taken with fluid that was removed from the knee, aspirated, towards the beginning of the procedure. This was sent for Gram stain and culture. Gram stain came back negative for organisms during the procedure prior to closure. IMPLANTS: Becerril and Nephew Regeneten biologic patch, size large utilized. ESTIMATED BLOOD LOSS: Minimal. COMPLICATIONS: None. DESCRIPTION OF PROCEDURE: In preoperative holding, the patient signed a written consent. Operative extremity was marked in preoperative holding. The patient went back to the operating room, placed supine on operating room table. Sedated and intubated. [place] bump placed under the left hemipelvis. Tourniquet placed about the left proximal thigh. Left lower extremity was prepped and draped. Surgical time-out performed. Esmarch applied and tourniquet raised to 300 mmHg. I made anterior longitudinal skin incision, which included the patient's prior surgical incision scar. I extended it distally and proximally. I dissected down to a clear layer of essentially scar tissue. I first wanted to remove fluid from the knee and obtain cultures. I, therefore, took a spinal needle and aspirated through the scar tissue layer into the joint. I aspirated approximately 125 cc of fluid. It was clear joint yellow looking fluid. I sent this for stat Gram stain and culture. I first performed the lateral retinacular release. I went 1 cm lateral to the patellar tendon and to the patella. I incised longitudinally just through the retinaculum, leaving the capsule, lateral capsule fully intact. The patella was incredibly dislocated lateral when I started this. With the lateral retinacular release, this improved the position much. I manipulated the patella to move it more and more medial. I was happy with the medialization performed with this, but I certainly was not done at this point medializing the patella. As a sign of how scarred down the patella had become, I would say just doing the lateral release was able to allow me to medialize the patella somewhere like 3 or 4 cm. Capsule still intact. I next, with the knee flexed in the DeMayo knee positioner, performed a medial parapatellar arthrotomy. I chose standard landmarks for this, although there was clearly a large layer of scar tissue and the patella was clearly not connected to any sands medial retinaculum there. This medial parapatellar arthrotomy was performed. I was able to visualize the knee components, which were intact. I debrided with sharp cautery about those knee implants. Much finger dissection superficial and deep to the scar tissue as well as the quadriceps tendon. It appeared that some of the quadriceps tendon or much of it was still inserting on the proximal patella. I dissected more proximally and it was clear that some of the vastus medialis had ruptured off the patella and the remainder of the quadriceps mechanism. Given the length of time that had passed since the patient's most recent surgery and injury, it was somewhat difficult to tell the difference between scar tissue and normal healthy tissue and much time was spent thinking about this and distinguishing between the 2 types. I left in place the tissue that was inserting directly on the patella proximally. I next performed a little bit more of a lateral release. I came up into some of the tighter fascia of the vastus lateralis because as I flex the knee, the patella was still in an oblique angle, although able to centralize to 90 degrees. This release of some vastus lateralis fascia better centralized the patella. At this point, I was able to flex the patient's total knee arthroplasty to over 90 degrees with the patella maintaining a centralized position and maintaining a flat position within the trochlear groove. I was happy that I performed enough of a lateral release. Especially when I clamped the medial tissues to the patella, this enabled centralization of the patella adequately. I next went to repair or supplement the intact quadriceps tendon fibers about the proximal patella. We obtained a Regeneten Becerril and Nephew biologic patch. We stapled it and placed into the distal quadriceps tendon using PLLA mohamud that are present as part of that kit, as well as some Vicryl 2-0 suture figure- of-eight stitches. I next performed both some quadriceps tendon repair of the vastus medialis fibers as well as an imbrication of the medial tissues superficial to the extensor mechanism. I identified vastus medialis fibers. I repaired these to the portion of the quadriceps tendon and it appeared to be intact that ran into the patella. I placed a number of weglwm-ok-vhbin stitches using FiberWire #2 and then Ethibond #1 suture. I then closed the medial parapatellar arthrotomy, along its entire length with mostly [id number]-wp-oaufh stitches using Ethibond #1 suture. The scar tissue that had formed a very clear layer, its medial flap, that used to be in a medial position, I was able to pull superficial and lateral over to lateral of the midline. This was because of the significant amount of change in position of the patella that we were able to perform during this procedure. I thought that this imbrication would further support the medial retinaculum and medial quadriceps repair to the central aspects of the quadriceps. I closed this with vwusyr-kq-khtzh and running stitches using Vicryl 0 suture. I should state that I had been prepared to perform suture anchor repair of the quadriceps, but this was not required. I was also prepared to perform an MPFL reconstruction. I had all the approximate graft and hardware. However, given the significant amount of scar tissue that I thought could be brought over the patella with imbrication and the tightening together of the vastus medialis and the success of centralization with the retinacular release, I did not feel that that was required. I feared that additional instrumentation might lead to patella fracture and I was concerned about future patellar blood supply and viability and possibility of fracture. After the imbrication of the medial structures in a rpyun-oyuv-jcnc fashion, I performed closure of the remaining tissues. I should state that we irrigated the knee with pulse lavage prior to performing the quadriceps tendon repair and medial capsular and retinacular imbrication. I should state that later in the procedure as I was obtaining some additional medialization of the patella, I released the lateral capsule to see if would gain me anything. I did that entirely separately from the lateral retinacular release. As it did not gain me a significant additional excursion, and because I wanted to keep the joint space a closed unit, I repaired the lateral capsule of the joint prior to performing the rest of the wound closure. I closed the lateral capsule with uqbrar-fe-chcas and running stitches using Vicryl 2-0 suture and the repair was excellent. At this stage, prior to the subcutaneous closure, I actually let down the tourniquet for 5 minutes. This was to see if there was any bleeding because I wanted to minimize the amount of bleeding to minimize infection risk postoperative given this revision complex patient and knee. There was almost no bleeding. I did not need to cauterize anything. We therefore then replaced the Esmarch and the tourniquet was elevated. We closed the subcutaneous tissues with buried simple stitches using Vicryl 2-0 suture and we closed the skin with mohamud. Xeroform, 4x4s, ABDs, sterile Webril. We placed a long-leg splint next using a posterior slab and then sugar-tong slab the entire length of his leg using plaster and overwrapped with an José Miguel bandage. DISPOSITION: Because of concerns about significant pain postoperative given the patient's baseline narcotic pain medication requirement for his bilateral knee pain and back pain as well as because of our quadriceps tendon repair and medial retinacular repairs, which can be very painful postoperatively, we admitted the patient for a postoperative IV pain medication. He will have to get Lovenox 40 mg subcu daily for 2 weeks postoperatively. He will start toe- touch weightbearing on crutches and we will convert him to a cast in a fully extended knee in the next several days or week. He will take IV antibiotics for 48 hours postoperatively and will then be discharged on oral given his high infection risk given revision surgery in the setting of a total knee arthroplasty and relatively poor health. The patient will follow up with me in clinic 1 week postoperatively for a wound check and a replacement of a new cast. [id number]/[facility] #: [id number] CAROL
[2019-08-06] MEDS: ceFAZolin 1 GM ADVAN(*) 1 GM in NS 0.9% 50 ML* 50 ML IVPB SCH ×3 (01:07→16:02)
[2019-08-06] MEDS: Acetaminophen TAB* 325 MG PO SCH ×3 (02:57→17:13)
[2019-08-06] MEDS: Ketorolac INJ* 30 MG/ML 1 ML VIAL IV PUSH PRN ×3 (03:16→16:46)
[2019-08-06] MEDS: Morphine INJ* 2 MG/ML 1 ML SYRINGE (TWO MG - NEW SYRINGE VERSION) IV PRN ×4 (03:17→16:44)
[2019-08-06] MEDS: Lactated Ringers 1000 ML Bag* 1,000 ML IV SCH (03:21)
[2019-08-06] MEDS: oxyCODONE/Acetamin 5/325 MG* TAB PO SCH ×4 (04:15→22:04)
[2019-08-06] MEDS: oxyCODONE TAB* 5 MG TAB PO PRN ×2 (04:15→16:49)
[2019-08-06] MEDS: oxyCODONE TAB* 5 MG TAB PO SCH ×4 (04:17→22:05)
[2019-08-06 05:58] LABS: Hematocrit 34 % (42-52); Hemoglobin 11.6 g/dL (14.0-18.0); Platelet Count 194 10^3/uL (150-450)
[2019-08-06] MEDS: oxyCODONE SR TAB(*) 20 MG TAB.SR PO SCH ×3 (06:06→22:04)
[2019-08-06] MEDS: oxyCODONE SR TAB(*) 10 MG TAB.SR PO SCH ×2 (06:06→14:40)
[2019-08-06 06:14] LABS: BUN/Creatinine Ratio 24.7 (8-20); Calcium 8.3 mg/dL (8.6-10.3); EGFR African American 133.5 (>60); EGFR Non-African American 110.4 (>60); Potassium 4.4 mmol/L (3.5-5.0)
[2019-08-06] MEDS: Mometasone/Formoter 200/5 MDI INH SCH ×2 (07:23→19:29)
[2019-08-06] MEDS: Docusate CAP* 100 MG PO SCH ×2 (08:22→22:04)
[2019-08-06] MEDS: Tamsulosin CAP* 0.4 MG PO SCH (08:22)
[2019-08-06] MEDS: amLODIPine TAB* 5 MG PO SCH (08:22)
[2019-08-06] MEDS: Lisinopril TAB* 10 MG PO SCH (08:22)
[2019-08-06] MEDS: DULoxetine DR CAP* 30 MG CAP.DR PO SCH (08:22)
[2019-08-06] MEDS: Vitamin THERAPEUTIC TAB PO SCH (08:22)
[2019-08-06] MEDS ORDERED: Fluticasone/Vilanterol MDI(NF) 100/25 MDI INH SCH (09:00)
--- NOTE | 2019-08-06 09:04 | PN ---
Progress Note - Progress Note Date of Service: 08/06/19 SOAP: Subjective: []Pt seen at bedside. He feels well without complaints. Denies CP, SOB, dizziness, nausea. LLE pain controlled. Worked with PT this morning, had difficulty maintaining ttwb status. Requests rehab placement. Objective: []Gen: NAD, appears well LLE: Splint cdi. f/e mtps intact, sensation intact to light touch distally, cap refill less than two seconds distally R calf supple and nontender Assessment: []1. Chronic lateral patella dislocation, left knee. 2. Chronic quadriceps tendon re-rupture, left. 3. Status post prior left total knee arthroplasty, 12/02/18, with subsequent quadriceps tendon rupture and open quadriceps tendon repair done on 02/04/19, both by another surgeon. POD 1 sp 1. Left knee open quadriceps tendon repair utilizing Regeneten biologic patch. 2. Left knee open medial imbrication, left knee medial retinaculum and vastus medialis. 3. Left knee open lateral retinacular release. Plan: []TTWB LLE Splint to remain CDI Will be on 48 hr post op abx Lovenox 40 mg sq qd x 2 weeks Will transition to cast tomorrow Plan for f/u Dr Mckeon post op 1 week and 3 week Vital Signs Temp 97.6 F 08/06/19 07:40 Pulse 71 08/06/19 07:40 Resp 18 08/06/19 08:27 BP 120/69 08/06/19 07:40 Pulse Ox 99 08/06/19 08:00 Intake & Output 08/05/19 08/06/19 08/06/19 18:59 06:59 18:59 Intake Total 1829 1275 Output Total 750 750 0 Balance 1079 525 0 Intake: IV Fluids 1829 575 ABX - CEFAZOLIN 60 LR 1769 575 Oral 700 Output: Urine 650 750 0 Estimated Blood Loss 100 Laboratory Last Values Hgb 11.6 g/dL (14.0-18.0) L 08/06/19 05:35 Hct 34 % (42-52) L 08/06/19 05:35 Plt Count 194 10^3/uL (150-450) 08/06/19 05:35 MPV 7.0 fL (7.4-10.4) L 08/06/19 05:35 Sodium 136 mmol/L (135-145) 08/06/19 05:35 Potassium 4.4 mmol/L (3.5-5.0) 08/06/19 05:35 Chloride 103 mmol/L (101-111) 08/06/19 05:35 Carbon Dioxide 30 mmol/L (22-32) 08/06/19 05:35 Anion Gap 3 mmol/L (2-11) 08/06/19 05:35 BUN 18 mg/dL (6-24) 08/06/19 05:35 Creatinine 0.73 mg/dL (0.67-1.17) 08/06/19 05:35 Est GFR ( Amer) 133.5 (>60) 08/06/19 05:35 Est GFR (Non-Af Amer) 110.4 (>60) 08/06/19 05:35 BUN/Creatinine Ratio 24.7 (8-20) H 08/06/19 05:35 Glucose 114 mg/dL (70-100) H 08/06/19 05:35 Calcium 8.3 mg/dL (8.6-10.3) L 08/06/19 05:35
[2019-08-06] MEDS: Enoxaparin(*) 40 MG/0.4 ML SYR SUBCUT SCH (12:37)
[2019-08-06] MEDS ORDERED: NS 0.9% 50 ML* 50 ML ONE (15:55)
[2019-08-06] MEDS: Cyclobenzaprine TAB* 10 MG PO PRN (16:48)
[2019-08-07] MEDS: oxyCODONE SR TAB(*) 10 MG TAB.SR PO SCH ×4 (00:05→22:07)
[2019-08-07] MEDS: ceFAZolin 1 GM ADVAN(*) 1 GM in NS 0.9% 50 ML* 50 ML IVPB SCH ×2 (00:06→07:43)
[2019-08-07] MEDS: Morphine INJ* 2 MG/ML 1 ML SYRINGE (TWO MG - NEW SYRINGE VERSION) IV PRN ×3 (00:14→13:28)
[2019-08-07] MEDS: oxyCODONE TAB* 5 MG TAB PO SCH ×4 (03:44→22:08)
[2019-08-07] MEDS: oxyCODONE/Acetamin 5/325 MG* TAB PO SCH ×4 (03:44→22:08)
[2019-08-07] MEDS: Acetaminophen TAB* 325 MG PO SCH ×3 (03:46→18:02)
[2019-08-07] MEDS: oxyCODONE SR TAB(*) 20 MG TAB.SR PO SCH ×3 (06:18→22:07)
[2019-08-07 06:26] LABS: Hematocrit 34 % (42-52); Hemoglobin 11.3 g/dL (14.0-18.0); Mean Platelet Volume 7.1 fL (7.4-10.4); Platelet Count 204 10^3/uL (150-450)
[2019-08-07] MEDS: Mometasone/Formoter 200/5 MDI INH SCH ×2 (08:09→22:11)
--- NOTE | 2019-08-07 09:04 | PN ---
Progress Note - Progress Note Date of Service: 08/07/19 SOAP: Subjective: POD #2 Left knee surgery. Doing very well, pain manageable. Denies CP/SOB, f/c, n/v or calf pain Objective: Vital Signs: Temp Pulse Resp BP Pulse Ox 97.8 F 105 14 129/59 95 08/07/19 07:25 08/07/19 08:11 08/07/19 08:11 08/07/19 07:25 08/07/19 08:11 Gen: A&Ox3, NAD at rest sitting in chair LLE: Splint C/D/I. +f/e at MTPs, sensation intact, brisk cap refill Labs: Laboratory Results - last 24 hr 08/07/19 05:43 Hgb 11.3 L Hct 34 L Plt Count 204 MPV 7.1 L Assessment: 1. Chronic lateral patella dislocation, left knee. 2. Chronic quadriceps tendon re-rupture, left. 3. Status post prior left total knee arthroplasty, 12/02/18, with subsequent quadriceps tendon rupture and open quadriceps tendon repair done on 02/04/19, both by another surgeon. Now is POD #2 1. Left knee open quadriceps tendon repair utilizing Regeneten biologic patch. 2. Left knee open medial imbrication, left knee medial retinaculum and vastus medialis. 3. Left knee open lateral retinacular release. Plan: Pt to be placed in cylinder cast today by Dr. Mckeon, anticipate ability to progress to WBAT Pt to go to [facility], awaiting bed offer Cont current pain medications Cont PT Cont Lovenox for DVT ppx
[2019-08-07] MEDS: Tamsulosin CAP* 0.4 MG PO SCH (09:27)
[2019-08-07] MEDS: Docusate CAP* 100 MG PO SCH ×2 (09:27→20:30)
[2019-08-07] MEDS: Lisinopril TAB* 10 MG PO SCH (09:27)
[2019-08-07] MEDS: Vitamin THERAPEUTIC TAB PO SCH (09:27)
[2019-08-07] MEDS: amLODIPine TAB* 5 MG PO SCH (09:27)
[2019-08-07] MEDS: DULoxetine DR CAP* 30 MG CAP.DR PO SCH (09:28)
[2019-08-07] MEDS: oxyCODONE TAB* 5 MG TAB PO PRN ×2 (10:53→18:05)
[2019-08-07] MEDS: Cyclobenzaprine TAB* 10 MG PO PRN (10:54)
[2019-08-07] MEDS: Enoxaparin(*) 40 MG/0.4 ML SYR SUBCUT SCH (13:31)
[2019-08-07] MEDS ORDERED: Morphine INJ* 2 MG/ML 1 ML SYRINGE (TWO MG - NEW SYRINGE VERSION) IV PRN (18:33)
[2019-08-07] MEDS: Ketorolac INJ* 30 MG/ML 1 ML VIAL IV PUSH PRN (20:30)
[2019-08-08] MEDS: Acetaminophen TAB* 325 MG PO SCH ×3 (01:53→17:18)
[2019-08-08] MEDS: oxyCODONE TAB* 5 MG TAB PO SCH ×4 (04:02→22:18)
[2019-08-08] MEDS: oxyCODONE/Acetamin 5/325 MG* TAB PO SCH ×4 (04:02→22:19)
[2019-08-08 05:54] LABS: Hematocrit 33 % (42-52); Hemoglobin 11.3 g/dL (14.0-18.0); Mean Platelet Volume 7.2 fL (7.4-10.4); Platelet Count 205 10^3/uL (150-450)
[2019-08-08] MEDS: oxyCODONE SR TAB(*) 20 MG TAB.SR PO SCH ×3 (05:59→19:59)
[2019-08-08] MEDS: oxyCODONE SR TAB(*) 10 MG TAB.SR PO SCH ×3 (05:59→20:00)
[2019-08-08] MEDS: Mometasone/Formoter 200/5 MDI INH SCH ×2 (08:35→19:15)
--- NOTE | 2019-08-08 08:47 | PN ---
Progress Note - Progress Note Date of Service: 08/08/19 SOAP: Subjective: Patient is doing well. Pain controlled. Cast intact. Denies F/C, CP/SOB or calf pain. Objective: PE- 59 y/o WDWN M NAD, A&O x3 LLE- cast c/d/i, +F/E toes, brisk cap refill, NVI Vital Signs Temp Pulse Resp BP Pulse Ox 98.7 F 75 16 116/61 98 08/08/19 07:10 08/08/19 08:35 08/08/19 08:35 08/08/19 07:10 08/08/19 08:35 Laboratory Results - last 24 hr 08/08/19 05:25 Hgb 11.3 L Hct 33 L Plt Count 205 MPV 7.2 L Assessment: 1. Chronic lateral patella dislocation, left knee. 2. Chronic quadriceps tendon re-rupture, left. 3. Status post prior left total knee arthroplasty, 12/02/18, with subsequent quadriceps tendon rupture and open quadriceps tendon repair done on 02/04/19, both by another surgeon. Now is POD #2 1. Left knee open quadriceps tendon repair utilizing Regeneten biologic patch. 2. Left knee open medial imbrication, left knee medial retinaculum and vastus medialis. 3. Left knee open lateral retinacular release. Plan: TTWB Keep cast clean dry and intact Cont chronic pain meds. Wean off prn oxycodone Cont PT Cont Lovenox for DVT prophylaxis DC to [facility] awaiting bed offer
[2019-08-08] MEDS: DULoxetine DR CAP* 30 MG CAP.DR PO SCH (09:05)
[2019-08-08] MEDS: Tamsulosin CAP* 0.4 MG PO SCH (09:05)
[2019-08-08] MEDS: amLODIPine TAB* 5 MG PO SCH (09:05)
[2019-08-08] MEDS: Docusate CAP* 100 MG PO SCH ×2 (09:05→20:00)
[2019-08-08] MEDS: Vitamin THERAPEUTIC TAB PO SCH (09:05)
[2019-08-08] MEDS: Lisinopril TAB* 10 MG PO SCH (09:07)
[2019-08-08] MEDS: Enoxaparin(*) 40 MG/0.4 ML SYR SUBCUT SCH (11:47)
[2019-08-08] MEDS: Cephalexin CAP* 500 MG PO SCH ×2 (14:05→19:59)
--- NOTE | 2019-08-09 01:15 | PRO ---
PROCEDURE NOTE: Application of long leg cast DATE: 08/07/19 PROCEDURE: This patient had a long leg cast placed using fiber glass by Dr. Fernie Mckeon and ALAYNA Holden, at the patient's bedside on . DESCRIPTION OF PROCEDURE: The patient had a complex knee surgery performed on 08/05/19. He was admitted postoperatively. To protect the surgical repair, casting was deemed to be appropriate. Therefore, a dressing change was performed on 08/07/19. Splint was removed and a long leg cast was placed using fiber glass. There were no issues or complications. [id number]/[facility] #: [id number] MTDD
[2019-08-09] MEDS: Acetaminophen TAB* 325 MG PO SCH ×4 (03:05→18:38)
[2019-08-09] MEDS: oxyCODONE TAB* 5 MG TAB PO SCH ×4 (04:35→22:04)
[2019-08-09] MEDS: oxyCODONE/Acetamin 5/325 MG* TAB PO SCH ×4 (04:35→22:04)
[2019-08-09 05:17] LABS: Hematocrit 34 % (42-52); Hemoglobin 11.3 g/dL (14.0-18.0); Mean Platelet Volume 6.7 fL (7.4-10.4); Platelet Count 243 10^3/uL (150-450)
[2019-08-09] MEDS: oxyCODONE SR TAB(*) 20 MG TAB.SR PO SCH ×3 (06:11→22:04)
[2019-08-09] MEDS: oxyCODONE SR TAB(*) 10 MG TAB.SR PO SCH ×3 (06:12→22:04)
[2019-08-09] MEDS: Cephalexin CAP* 500 MG PO SCH ×3 (10:29→20:54)
[2019-08-09] MEDS: amLODIPine TAB* 5 MG PO SCH (10:31)
[2019-08-09] MEDS: Vitamin THERAPEUTIC TAB PO SCH (10:32)
[2019-08-09] MEDS: Tamsulosin CAP* 0.4 MG PO SCH (10:32)
[2019-08-09] MEDS: Lisinopril TAB* 10 MG PO SCH (10:32)
[2019-08-09] MEDS: Docusate CAP* 100 MG PO SCH ×2 (10:32→20:54)
[2019-08-09] MEDS: DULoxetine DR CAP* 30 MG CAP.DR PO SCH (10:33)
[2019-08-09] MEDS: Mometasone/Formoter 200/5 MDI INH SCH ×3 (10:34→22:05)
[2019-08-09] MEDS: Cyclobenzaprine TAB* 10 MG PO PRN ×2 (12:09→20:54)
[2019-08-09] MEDS: Enoxaparin(*) 40 MG/0.4 ML SYR SUBCUT SCH (12:10)
--- NOTE | 2019-08-09 12:49 | PN ---
Progress Note - Progress Note Date of Service: 08/09/19 SOAP: Subjective: Pt is doing well. Pain is controlled with chronic pain meds. He has heel discomfort from resting the cast on hard surfaces. Denies calf pain, Cp/SOB or F /C. Objective: PE- 59 y/o WDWN M NAD LLE- cast c/d/i, +F/E toes, brisk cap refill, SILT distally Vital Signs Temp Pulse Resp BP Pulse Ox 98.5 F 76 18 125/65 95 08/09/19 11:18 08/09/19 11:18 08/09/19 12:09 08/09/19 11:18 08/09/19 11:18 Laboratory Results - last 24 hr 08/09/19 05:08 Hgb 11.3 L Hct 34 L Plt Count 243 MPV 6.7 L Assessment: 1. Chronic lateral patella dislocation, left knee. 2. Chronic quadriceps tendon re-rupture, left. 3. Status post prior left total knee arthroplasty, 12/02/18, with subsequent quadriceps tendon rupture and open quadriceps tendon repair done on 02/04/19, both by another surgeon. Now is POD #2 1. Left knee open quadriceps tendon repair utilizing Regeneten biologic patch. 2. Left knee open medial imbrication, left knee medial retinaculum and vastus medialis. 3. Left knee open lateral retinacular release. Plan: TTWB Float heel on pillow to avoid discomfort. No pillows under thigh or knee Keep cast clean dry and intact Cont chronic pain meds. Toradol as needed for breakthrough Cont PT Cont Lovenox for DVT prophylaxis DC to [facility] Saturday
[2019-08-10] MEDS: Acetaminophen TAB* 325 MG PO SCH ×2 (02:27→09:54)
[2019-08-10] MEDS: oxyCODONE/Acetamin 5/325 MG* TAB PO SCH ×2 (03:59→10:39)
[2019-08-10] MEDS: oxyCODONE TAB* 5 MG TAB PO SCH ×2 (03:59→09:54)
[2019-08-10 05:35] LABS: Hematocrit 35 % (42-52); Hemoglobin 11.7 g/dL (14.0-18.0); Mean Platelet Volume 6.9 fL (7.4-10.4); Platelet Count 285 10^3/uL (150-450)
[2019-08-10] MEDS: oxyCODONE SR TAB(*) 10 MG TAB.SR PO SCH (06:03)
[2019-08-10] MEDS: oxyCODONE SR TAB(*) 20 MG TAB.SR PO SCH (06:04)
--- NOTE | 2019-08-10 08:44 | PN ---
Progress Note - Progress Note Date of Service: 08/10/19 SOAP: Subjective: Pt is doing well. pain is controlled. Denies F/C, CP/SOB or calf pain Objective: PE- 59y/o WDWN M NAD, A&Ox3 LLE- cast c/d/i, +F/E toes, brisk cap refill, thigh NT Vital Signs Temp Pulse Resp BP Pulse Ox 97.9 F 70 18 136/76 96 08/10/19 07:34 08/10/19 07:34 08/10/19 07:34 08/10/19 07:34 08/10/19 07:34 Laboratory Results - last 24 hr 08/10/19 05:21 Hgb 11.7 L Hct 35 L Plt Count 285 MPV 6.9 L Assessment: 1. Chronic lateral patella dislocation, left knee. 2. Chronic quadriceps tendon re-rupture, left. 3. Status post prior left total knee arthroplasty, 12/02/18, with subsequent quadriceps tendon rupture and open quadriceps tendon repair done on 02/04/19, both by another surgeon. Now is POD #2 1. Left knee open quadriceps tendon repair utilizing Regeneten biologic patch. 2. Left knee open medial imbrication, left knee medial retinaculum and vastus medialis. 3. Left knee open lateral retinacular release. Plan: TTWB Float heel on pillow to avoid discomfort. No pillows under thigh or knee Keep cast clean dry and intact Cont chronic pain meds Cont PT Lovenox for DVT prophylaxis DC to [facility] today
--- NOTE | 2019-08-10 09:24 | DS ---
Orthopedic Discharge Summary - Discharge Summary Date of Admission:08/05/19 Date of Discharge: 08/10/19 Date of Surgery: 08/05/19 Attending Orthopedic Provider: Dr. Mckeon Pre-operative Diagnosis: Left quadriceps tendon tear in prescence of a left TKA Operative Procedure: 1. Left knee open quadriceps tendon repair utilizing Regeneten biologic patch. 2. Left knee open medial imbrication, left knee medial retinaculum and vastus medialis. 3. Left knee open lateral retinacular release. Disposition of Patient:[facility] Home care vs Outpatient services:[facility] Condition of Patient: Stable Pain medication RX at discharge: Chronic pain medications, oxycontin 30 q 8 hrs and percocet 10/325 q 6 hrs. Pt not requiring extra meds DVT prophylaxis RX at discharge: Lovenox until weight bearing History: CHRISTOPH HALEY is a 59 year old M with years of increasingly severe left quadriceps pain. He has had a prior left TKA and left knee quadriceps repair that he failed. Patient has failed conservative management and has elected to undergo a left knee quadriceps tendon repair. Hospital Course: CHRISTOPH was admitted to [facility] on 08/05/19. Patient underwent a left knee open quadriceps tendon repair utilizing Regeneten patch, medial imbrication medial retinaculum and lateral release without complication followed by a brief recovery in PACU and transfer to the Short Stay Surgical Unit in stable condition. Our hospitalist service, physical therapy and occupational therapy also participated in this patients care. Post- op day 1: patient was alert and in no acute distress. Dressing was clean, dry and intact. Operative extremity dorsiflexion and plantarflexion intact, sensation intact to light touch distally, DP2+. Post-op day three: cast was changed, incision was clean, dry and intact. Post op day 5: cast c/d/i, +F/E toes, NVI. Patient was deemed to be medically and orthopedically stable for discharge to [facility]. Physical therapy goals were met. Home Medications Medication Instructions Recorded Confirmed Type Mometasone/Formoter 200/5 MDI* 2 puff INH BID 04/01/15 08/05/19 History [Dulera 200/5 MDI*] DULoxetine CAP* [Cymbalta CAP*] 30 mg PO QAM 03/16/16 08/05/19 History Lisinopril TAB* [Prinivil TAB 10 10 mg PO QAM 05/28/17 08/05/19 History MG*] Albuterol HFA INHALER* [Ventolin 2 puff INH Q4H PRN 10/14/17 08/05/19 History HFA Inhaler*] Tamsulosin CAP* [Flomax CAP*] 0.4 mg PO QAM 10/14/17 08/05/19 History amLODIPine TAB* [Norvasc 5 mg TAB*] 5 mg PO QAM 10/14/17 08/05/19 History oxyCODONE SR TAB(*) [Oxycontin 10 30 mg PO Q8H 02/02/19 08/05/19 History mg (*)] oxyCODONE/Acetamin 10/325(NF) 1 tab PO Q4H PRN 02/02/19 08/05/19 History [Percocet 10/325 (NF)] celeCOXIB CAP* [Celebrex CAP*] 200 mg PO QAM 07/17/19 08/05/19 History Fluticasone/Vilanterol MDI(NF) 1 puff PO DAILY 08/05/19 08/05/19 History [Breo Ellipta MDI 200/25(NF)] Cephalexin CAP* [Keflex 500 CAP*] 500 mg PO TID cap 08/10/19 Rx Cyclobenzaprine TAB* [Flexeril 10 10 mg PO TID #0 08/10/19 08/05/19 Rx MG TAB*] Docusate CAP* [Colace Cap*] 100 mg PO BID cap 08/10/19 Rx Enoxaparin(*) [Lovenox(*)] 40 mg SUBCUT Q24H syringe 08/10/19 Rx Discharge Instructions following Orthopedic Surgery: Activity: * Toe touch weight bearing Wound care: * Keep cast clean dry and intact Call Orthopedic office for: * Increased drainage * Redness * Increased pain * Fever Go to ER with shortness of breath or chest pain. Diet: * Regular diet * Increase fluids and fiber to prevent constipation. * Continue to use stool softeners, call office if no bowel motion within 48 hours. Medications See Home Medication List in your packet for medications that you should take after discharge. DVT Prophylaxis: Lovenox Dosin mg/0.4 ml 1 injection subcutaneous daily until weight bearing (likely 6 weeks) Pain Control: Continue chronic pain medication Oxycontin 30 mg every 8 hours Percocet 10/325 mg 1 tab every 6 hours Keflex 500 mg take 1 tab tid x 5 days (last day of keflex 08/14/19) to prevent infection Colace 100 mg take 1 tab every 8 hours as needed for constipation FOLLOW UP: Follow up with Dr. Mckeon Within 3 weeks, call for appointment Please call our office with any questions or concerns ([phone])
[2019-08-10] MEDS: DULoxetine DR CAP* 30 MG CAP.DR PO SCH (09:52)
[2019-08-10] MEDS: Cephalexin CAP* 500 MG PO SCH (09:52)
[2019-08-10] MEDS: Lisinopril TAB* 10 MG PO SCH (09:53)
[2019-08-10] MEDS: amLODIPine TAB* 5 MG PO SCH (09:53)
[2019-08-10] MEDS: Tamsulosin CAP* 0.4 MG PO SCH (09:53)
[2019-08-10] MEDS: Vitamin THERAPEUTIC TAB PO SCH (09:53)
[2019-08-10] MEDS: Docusate CAP* 100 MG PO SCH (09:59)
[2019-08-10] MEDS: Mometasone/Formoter 200/5 MDI INH SCH (10:18)
[2019-08-10 11:42] VITALS: BP 148/79
== END 2019-08-10 13:15 | DRG 501 ==
LOC: OR 05:31 → SSU 10:56
PROVIDERS: ADMIT Orthopaedic Surgery; ATTEND Orthopaedic Surgery
PROC: 0LUR0KZ Supplement Left Knee Tendon with Nonautologous Tissue Substitute, Open Approach (ICD-10-PCS; 2019-08-05)
PROC: 0MNP0ZZ Release Left Knee Bursa and Ligament, Open Approach (ICD-10-PCS; 2019-08-05)
PROC: 0LQM0ZZ Repair Left Upper Leg Tendon, Open Approach (ICD-10-PCS; principal; 2019-08-05 07:30)
PROC: 2W3RX2Z Immobilization of Left Lower Leg using Cast (ICD-10-PCS; 2019-08-07)
DX: S76.112A Strain of left quadriceps muscle, fascia and tendon, initial encounter (principal); T84.023A Instability of internal left knee prosthesis, initial encounter; W17.89XA Other fall from one level to another, initial encounter; Y92.9 Unspecified place or not applicable; I10 Essential (primary) hypertension; E78.5 Hyperlipidemia, unspecified; F32.9 Major depressive disorder, single episode, unspecified; J45.909 Unspecified asthma, uncomplicated; G89.29 Other chronic pain; M48.061 Spinal stenosis, lumbar region without neurogenic claudication; M51.16 Intervertebral disc disorders with radiculopathy, lumbar region; M19.90 Unspecified osteoarthritis, unspecified site; K57.90 Diverticulosis of intestine, part unspecified, without perforation or abscess without bleeding; Z96.652 Presence of left artificial knee joint; G47.33 Obstructive sleep apnea (adult) (pediatric); M19.049 Primary osteoarthritis, unspecified hand; G47.10 Hypersomnia, unspecified; M16.10 Unilateral primary osteoarthritis, unspecified hip; E66.9 Obesity, unspecified; G47.00 Insomnia, unspecified; M19.019 Primary osteoarthritis, unspecified shoulder; Z68.30 Body mass index [BMI] 30.0-30.9, adult; Z79.899 Other long term (current) drug therapy; Z79.51 Long term (current) use of inhaled steroids; Z79.82 Long term (current) use of aspirin; Z91.19 Patient's noncompliance with other medical treatment and regimen
CPT/HCPCS: 36415; 80048; 85014; 85018; 85049; 87070; 87073; 87205; 88112; 94640; A9270-GY; C1713; J0330; J0690; J1100; J1170; J1650; J1885; J2250; J2270; J2704; J3010; J3370; J3490

== ENCOUNTER 2022-12-05 05:55 | Observation (INO) ==
[~2022-12-05 05:55] MED LIST changes: +Buffered Lidocaine 1% SYRIN 1 ml INTRADERM ONE; -Buffered Lidocaine 1% SYRIN* 1 ML/SYRINGE INTRADERM ONE; +HYDROcodone/ACETAMIN 5/325 mg TAB PO PRN; +Lactated Ringers 1000 ml BAG 1,000 ML IV SCH; +Metoclopramide 5 MG/ML VIAL (10 mg) IV PRN; +Naloxone 0.4 mg VIAL 0.4 mg/ml 1 ml VIAL IV PRN; +Ondansetron 4 mg VIAL 2 MG/ML 2 ml VIAL IV PRN; +fentaNYL 100 mcg/2 ml 50 MCG/ML VIAL IV PRN
[2022-12-05] MEDS ORDERED: Lidocaine 2% PF 5 ML VIAL ONE (06:29)
[2022-12-05] MEDS ORDERED: Phenylephrine IV 10 MG/ML 1 ml VIAL ONE (06:29)
[2022-12-05] MEDS ORDERED: fentaNYL 100 mcg/2 ml 50 MCG/ML VIAL ONE (06:30)
[2022-12-05] MEDS ORDERED: Midazolam 2 mg/2 ml VIAL 1 mg/ml 2 ml VIAL (2 mg) ONE (06:30)
[2022-12-05] MEDS ORDERED: ROPIVACAINE 5 MG/ML 30 ML BTL (0.5%) ONE (06:35)
[2022-12-05] MEDS ORDERED: ceFAZolin 2 GM in NS PREMIX 2 GM/100 ML BAG IVPB ONE (06:37)
[2022-12-05] MEDS ORDERED: Ondansetron 4 mg VIAL 2 MG/ML 2 ml VIAL ONE (06:41)
[2022-12-05 06:56] LABS: Rapid COVID-19 Molecular Undetected (Undetected)
[2022-12-05] MEDS ORDERED: Bupivacaine 0.5% W/EPI SDV 10 ML VIAL INJ ONE (07:23)
[2022-12-05] MEDS ORDERED: Vancomycin 1,000 MG VIAL ONE (07:23)
[2022-12-05] MEDS ORDERED: Glycopyrrolate IV 0.2 MG/ML 1 ML VIAL ONE ×2 (07:41→07:45)
[2022-12-05] MEDS ORDERED: Ketamine HCL 50 mg/ml 10 ml VIAL (500 MG) ONE (07:42)
[2022-12-05] MEDS ORDERED: HYDROmorphone 0.5 MG/0.5 ML SYRINGE ONE ×2 (08:27→08:35)
[2022-12-05] MEDS ORDERED: Ondansetron 4 mg VIAL 2 MG/ML 2 ml VIAL IV PRN (10:53)
[2022-12-05] MEDS ORDERED: Magnesium Hydroxide LIQ 30 ML UDC PO PRN (10:53)
[2022-12-05] MEDS ORDERED: Lactulose 30 ml UDC PO PRN (10:53)
[2022-12-05] MEDS ORDERED: Ondansetron ODT 4 mg TAB 4 MG TAB PO PRN (10:53)
[2022-12-05] MEDS ORDERED: ARMODAFINIL 250 MG PO PRN (11:00)
[2022-12-05] MEDS: Lactated Ringers 1000 ml BAG 1,000 ML IV SCH ×2 (12:22→22:53)
[2022-12-05] MEDS: oxyCODONE/Acetamin 5/325 mg TAB PO SCH ×2 (15:01→21:49)
[2022-12-05] MEDS: ceFAZolin 1 GM ADVAN 1 GM in NS 0.9% 50 ML 50 ML IVPB SCH (17:05)
[2022-12-05] MEDS: Magnesium Hydroxide LIQ 30 ML UDC PO SCH (20:17)
[2022-12-05] MEDS: Morphine 2 MG/ML SYRINGE IV PRN (20:18)
[2022-12-05] MEDS: oxyCODONE SR 20 mg TAB PO SCH (21:49)
[2022-12-06] MEDS: ceFAZolin 1 GM ADVAN 1 GM in NS 0.9% 50 ML 50 ML IVPB SCH ×2 (00:40→07:50)
[2022-12-06 06:36] LABS: Hematocrit 32.2 % (38-53); Hemoglobin 11.1 g/dL (13.2-16.3); Mean Platelet Volume 7.2 fL (7.5-11.2); Platelet Count 154 10^3/uL (150-450)
[2022-12-06 07:09] LABS: Calcium 9.2 mg/dL (8.6-10.3); Creatinine, Serum 0.78 mg/dL (0.67-1.17); eGFR CKD-EPI 101.5 (>60)
[2022-12-06] MEDS: Morphine 2 MG/ML SYRINGE IV PRN (07:12)
[2022-12-06] MEDS: oxyCODONE/Acetamin 5/325 mg TAB PO SCH (08:31)
[2022-12-06] MEDS: oxyCODONE SR 20 mg TAB PO SCH (08:32)
[2022-12-06] MEDS: Magnesium Hydroxide LIQ 30 ML UDC PO SCH (08:34)
[2022-12-06] MEDS ORDERED: Vitamin THERAPEUTIC TAB PO SCH (09:00)
[2022-12-06 09:49] VITALS: BP 153/82
== END 2022-12-06 11:47 | disposition home or self-care (01) ==
LOC: AA 05:55 → INTOOBSV 05:55 → SSU 12:03
PROVIDERS: ADMIT Orthopaedic Surgery; ATTEND Orthopaedic Surgery